=== PATIENT | female | born 1960 | race Caucasian/White ===

== ENCOUNTER 2025-01-05 14:14 | Outpatient (REF) | payer OTHER, SELFPAY ==
--- NOTE | ~2025-01-05 | MM_ITS ---
EXAMINATION: DXA BONE DENSITY AXIAL HISTORY: MENOPAUSAL TECHNIQUE: [facility] Dual energy absorptiometry (DEXA) of the lumbar spine, total right hip, and femoral neck was performed. COMPARISON: There are no prior studies for comparison. FINDINGS: The bone mineral density of the lumbar spine is 1.198 g/cm2, corresponding to a T-score of 0.1, and a Z-score of 1.5. This is indicative of normal bone mineral density. The bone mineral density of the right total hip is 0.936 g/cm2, corresponding to a T-score of -0.6, and a Z-score of 0.4. This is indicative of normal bone mineral density. The bone mineral density of the right femoral neck is 0.939 g/cm2, corresponding to a T-score of -0.7, and a Z-score of 0.6. This is indicative of normal bone mineral density. MM/XR DEXA axial skeleton IMPRESSION: Based on bone mineral density, and according to World Health Organization (WHO) criteria, the diagnosis is consistent with normal bone mineral density. Statistically, 68% of repeat scans fall within 1 SD (+/- 0.010 g/cm2 for AP spine L1-L4) and 1 SD (+/- 0.012 g/cm2 for femur total) FRAX is a trademark of the [employer]'s [place] [facility] Metabolic Bone Disease, a World Health Organization (WHO) Collaborating Center. Electronically signed by: Roly Li MD 01/05/2025 02:57 PM EDT
--- OUTSIDE RECORDS SUMMARY | 2025-01-05 18:35 | XMS_ITS | Encounter Summary ---
Author Organization [facility] Address [address] [facility] [address] [place] [address] Phone Care Team Providers Care Metal Rivet Machine Operator Name Role Phone Klaudia Fan MD Primary Care Provider [phone]- [phone] Encounter Details Date Type Department Care Team (Late st Contact Info) Description 06/15/2020 Procedure Pass [facility], [address] [place] [address] Social History Tobacco Use Types Packs/Day Years Used Date Smoking Tobacco: Never Smokeless Tobacco: Never Alcohol Use Standard Drinks/Week Comments Yes 2 (1 standard drink = 0.6 oz pur e alcohol) Socially Comments No Sex and Gender Information Value Date Recorded Sex Assigned at Female 09/21/2019 11:39 AM EDT Legal Sex Female 4:13 PM EST Gender Identity Female 09/21/2019 11:39 AM EDT Sexual Orientation Lesbian or [place] 09/21/2019 11 :39 AM EDT documented as of this encounter Plan of Treatment Upcoming Encounters Date Type Department Care Team (Late st Contact Info) Description 03/30/2025 8:40 AM EST Office Visit [facility] [address] [facility] [address] [place] [address] Klaudia Fan MD 15 [facility] [address] [place] [address] [email or web address] documented as of this encounter Visit Diagnoses Not on filedocumented in this encounter Additional Health Concerns Infection Onset Date Last Indicated Resolved Time CoV-Exposed Comment:From COVIDPass 08/21/2021 08/21/2021 09/01/2021 1:24 A M EDT COVID-19 11/19/2023 11/19/2023 12/10/2023 1:21 AM EDT documented as of this encounter Care Teams Metal Rivet Machine Operator Relationship Specialty Start Date End Date Klaudia Fan MD 15 [place] [address] [email or web address] PCP - General Family Medicine 09/21/19 documented as of this encounter Additional Source Comments The information contained in this document represents components of the legal health record. It is not the complete legal health record.[facility]
--- OUTSIDE RECORDS SUMMARY | 2025-01-05 18:35 | XMS_ITS | Encounter Summary ---
Author Organization [facility] Address [address] [facility] [address] [place] [address] Phone Care Team Providers Care Record Cutter Name Role Phone Klaudia Fan MD Primary Care Provider [phone]- [phone] Encounter Details Date Type Department Care Team (Latest Contact Info) Description 12/24/2022 Transcribe Orders [facility] Laboratory [address] [place] [address] Klaudia Fan MD 15 [facility] [address] [place] [address] [email or web address] Abnormal laboratory test (Primary Dx) Social History Tobacco Use Types Packs/Day Years Used Date Smoking Tobacco: Former Cigarettes Smokeless Tobacco: Never Alcohol Use Standard Drinks/Week Comments Yes 2 (1 standard drink = 0.6 oz pur e alcohol) Socially Education Answer Date Recorded Are you interested in more education? Not on neymar e 07/06/2022 Are you concerned about learning? Not on file 07/06/2022 No 07/06/2022 No 07/06/2022 Digital Access Answer Date Recorded No 08/01/2022 No 08/01/2022 Reliable internet access at home? Not on file 08/01/2022 Device with a working camera? Not on file Comments No Sex and Gender Information Value [...] Description 03/30/2025 8:40 AM EST Office Visit [facility] Primary Care [address] [facility] [address] [place] [address] Klaudia Fan MD 15 [facility] [address] [place] [address] [email or web address] documented as of this encounter Results * Folate (12/31/2022 2:25 PM EDT) FOLIC ACID 13.7 4.2 - 19.9 ng/mL [facility] Blood 12/31/2022 2:25 PM EDT 12/31/2022 2:28 PM EDT us Klaudia Fan MD LAB BLOOD ORDERABLES Final R esult Performing Organization Address City/[facility]/ZIP Co de Phone Number [address] [address] * Vitamin B12 (12/31/2022 2:25 PM EDT) VITAMIN B12 979 232 - 1,245 pg/mL [facility] Blood 12/31/2022 2:25 PM EDT 12/31/2022 2:28 PM EDT Klaudia Fan MD LAB BLOOD ORDERABLES Final R esult Performing Organization Address [facility]/ZIP Co de Phone Number [address] [address] documented in this encounter Visit Diagnoses Diagnosis Abnormal laboratory test- Primary Other abnormal clinical finding documented in this encounter Additional Health Concerns Infection Onset Date Last Indicated Resolved Time COVID-19 11/19/2023 11/19/2023 12/10/2023 1:21 AM EDT documented as of this encounter Care Teams Record Cutter Relationship Specialty Start Date End Date Klaudia Fan MD [address] [address] [email or web address] PCP - General Family Medicine 09/21/19 documented as of this encounter Additional Source Comments The information contained in this document represents components of the legal health record. It is not the complete legal health record.[facility]
--- OUTSIDE RECORDS SUMMARY | 2025-01-05 18:35 | XMS_ITS | Encounter Summary ---
Author Organization [facility] Address [address] [facility] [address] [place] [address] Phone Care Team Providers Care Tire Room Supervisor Name Role Phone Jackie Swanson MD Primary Care Provider [phone] Klaudia Fan MD Primary Care Provider [phone] Encounter Details Date Type Department Care Team (Late st Contact Info) Description 06/22/2017 Ancillary Orders , X-Ray - [address] [place] [address] Jackie Swanson MD [address] [place] [address] [email or web address] Pain Social History Tobacco Use Types Packs/Day Years Used Date Smoking Tobacco: Never Assessed Comments Unknown Sex and Gender Information Value Date Recorded [...] Description 03/30/2025 8:40 AM EST Office Visit [facility] [address] [facility] [address] [place] [address] Klaudia Fan MD 15 [facility] [address] [place] [address] documented as of this encounter Results * XR Sacrum and Coccyx (06/22/2017 4:05 PM EDT) Anatomical Region Laterality Modality L-spine Radiographic Kylee ging 06/23/2017 10:2 1 AM EDT Impressions 06/23/2017 10:23 AM EDT Very equivocal fracture deformity of the proximal coccyx which may represent a subtle change from 2011. No other post-traumatic bony abnormality suggested. POS [id number] Narrative 06/23/2017 10:23 AM EDT COMPARISON: 06/10/2011 CT FINDINGS: Frontal and lateral views were obtained. There is very equivocal progressive widening between the first and second coccygeal segments. Coccygeal tip is stable. Sacral ala appear intact. Procedure Note Jeanine Mercedes MD - 06/23/2017 COMPARISON: 06/10/2011 CT FINDINGS: Frontal and lateral views were obtained. There is very equivocalprogressive widening between the first and second coccygeal segments.Coccygeal tip is stable. Sacral ala appear intact. IMPRESSION: Very equivocal fracture deformity of the proximal coccyx which mayrepresent a subtle change from 2011. No other post-traumatic bonyabnormality suggested. POS [id number] Jackie Swanson MD IMG XR SPINE Final Result documented in this encounter Visit Diagnoses Diagnosis Pain Generalized pain Pain Generalized pain documented in this encounter Additional Health Concerns Infection Onset Date Last Indicated Resolved Time CoV-Risk 11/19/2019 11/19/2019 11/19/2019 4:18 PM EDT CoV-Risk 04/29/2020 04/29/2020 05/09/2020 1:23 AM EST CoV-Exposed Comment:From COVIDPass 08/21/2021 08/21/2021 09/01/2021 1:24 A M EDT COVID-19 11/19/2023 11/19/2023 12/10/2023 1:21 AM EDT documented as of this encounter Care Teams Tire Room Supervisor Relationship Specialty Start Date End Date Jackie Swanson MD [address] [place] [phone] [email or web address] PCP - General Internal Medicine 05/31/17 09/20/19 Klaudia Fan MD [address] [place] [address] [email or web address] PCP - General Family Medicine 09/21/19 documented as of this encounter Additional Source Comments The information contained in this document represents components of the legal health record. It is not the complete legal health record.[facility]
--- OUTSIDE RECORDS SUMMARY | 2025-01-05 18:35 | XMS_ITS | Encounter Summary ---
Author Organization [facility] Address [address] [facility] [address] [place] [address] Phone Care Team Providers Care School Speech Language Pathologist Name Role Phone Klaudia Fan MD Primary Care Provider [phone] Encounter Details Date Type Department Care Team ([facility] st Contact Info) Description 07/26/2023 Procedure Pass [facility] Admitting Dept Virtual Department 30 [place] [address] Social History Tobacco Use Types Packs/Day Years Used Date Smoking Tobacco: Former Cigarettes Q uit: 1980 Smokeless Tobacco: Never Comments:Quit in 20's Alcohol Use Standard Drinks/Week Comments Yes 2 (1 standard drink = 0.6 oz pur e alcohol) Home Health Assessment: Transportation Answer Date Recorded Lack of Transportation (Medical) No 03/06/2023 Lack of Transportation (Non-Medical) No 03/06/2023 Patient Unable or Declines to Respond No 03/06/2023 Education Answer Date Recorded Are you interested in more education? Not on neymar e 07/06/2022 Are you concerned about learning? Not on file 07/06/2022 No 07/06/2022 No 07/06/2022 Digital Access Answer Date Recorded No 08/01/2022 No 08/01/2022 Reliable internet access at home? Not on file 08/01/2022 Device with a working camera? Not on file Intimate Partner Violence Answer Date R ecorded Are you denied basic needs s uch as food, clothing, or medical care? No 07/26/2023 In the past 12 months have y ou been in a relationship with a person who hurts, threatens, or tries to control you? No 07/26/2023 Are you denied basic needs s uch as food, clothing, or medical care? No 07/26/2023 In the past 12 months have y ou been in a relationship with a person who hurts, threatens, or tries to control you? No 07/26/2023 Comments No Sex and Gender Information Value [...] 03/30/2025 8:40 AM EST Office Visit [facility] [address] [facility] [address] [place] [address] Klaudia Fan MD 15 [facility]. [address] [place] [address] [email or web address] documented as of this encounter Visit Diagnoses Not on filedocumented in this encounter Additional Health Concerns Infection Onset Date Last Indicated Resolved Time COVID-19 11/19/2023 11/19/2023 12/10/2023 1:21 AM EDT documented as of this encounter Care Teams School Speech Language Pathologist Relationship Specialty Start Date End Date Klaudia Fan MD 15 [facility]. [address] [place] [address] [email or web address] PCP - General Family Medicine 09/21/19 documented as of this encounter Additional Source Comments The information contained in this document represents components of the legal health record. It is not the complete legal health record.[facility]
--- OUTSIDE RECORDS SUMMARY | 2025-01-05 18:35 | XMS_ITS | Encounter Summary ---
Author Organization [facility] Address [address] [facility] [address] [place] [address] Phone Care Team Providers Care Brine Supervisor Name Role Phone Klaudia Fan MD Primary Care Provider [phone] Encounter Details Date Type Department Care Team (Late st Contact Info) Description 02/15/2020 Procedure Pass [facility] - [address] [place] [address] Social History Tobacco Use Types Packs/Day Years [...] Description 03/30/2025 8:40 AM EST Office Visit [facility] Care [address] [facility] [address] [place] [address] Klaudia Fan MD 15 [facility] [address] [place] [address] [email or web address] documented as of this encounter Visit Diagnoses Not on filedocumented in this encounter Additional Health Concerns Infection Onset Date Last Indicated Resolved Time CoV-Risk 04/29/2020 04/29/2020 05/09/2020 1:23 AM EST CoV-Exposed Comment:From COVIDPass 08/21/2021 08/21/2021 09/01/2021 1:24 A M EDT COVID-19 11/19/2023 11/19/2023 12/10/2023 1:21 AM EDT documented as of this encounter Care Teams Brine Supervisor Relationship Specialty Start Date End Date Klaudia Fan MD [address] [place] [address] [email or web address] PCP - General Family Medicine 09/21/19 documented as of this encounter Additional Source Comments The information contained in this document represents components of the legal health record. It is not the complete legal health record.[facility]
--- OUTSIDE RECORDS SUMMARY | 2025-01-05 18:35 | XMS_ITS | Encounter Summary ---
Author Organization [facility] Address [address] [facility] [address] [place] [address] Phone Care Team Providers Care Tensile Tester Name Role Phone Jackie Swanson MD Primary Care Provider [phone] Klaudia Fan MD Primary Care Provider [phone] Encounter Details Date Type Department Care Team (Late st Contact Info) Description 05/31/2017 Transcribe Orders [address] [place] [address] Jackie Swanson MD [address] [place] [address] [email or web address] Anemia, unspecified type (Primary Dx); Vitamin D deficiency; Loss of hair Social History Tobacco Use Types Packs/Day Years [...] Description 03/30/2025 8:40 AM EST Office Visit [facility] [address] [facility] [address] [place] [address] Klaudia Fan MD 15 [facility] [address] [place] [address] [email or web address] documented as of this encounter Results * 25-OH vitamin D (05/31/2017 7:52 AM EDT) 25 OH VIT D (TOTAL) 50 30 - 1,000 ng/mL [facility] Blood 05/31/2017 7:52 AM EDT 05/31/2017 7:56 AM EDT Jackie Swanson MD LAB BLOOD ORDERABLES Final R esult Performing Organization Address City/[facility]/ZIP Co de Phone Number [address] [address] * TSH (05/31/2017 7:52 AM EDT) Pathologist [facility] TSH 2.11 0.27 - 4.20 uIU/mL [facility] Blood 05/31/2017 7:52 AM EDT 05/31/2017 7:56 AM EDT us Jackie Swanson MD LAB BLOOD ORDERABLES Final R esult Performing Organization Address City/[facility]/ZIP Co de Phone Number [address] [address] * CBC and differential (05/31/2017 7:52 AM EDT) [facility] WBC 4.17 3.40 - 11.20 K/uL [facility] RBC 3.83 3.80 - 4.80 M/uL [facility] HGB 12.1 12.0 - 15.0 g/dL [facility] HCT 36.3 36.0 - 46.0 % [facility] PLT 158 130 - 400 K/uL [facility] MCV 94.8 79.0 - 98.0 fL [facility] MCH 31.6 27.0 - 34.8 pg [facility] MCHC 33.3 31.5 - 36.0 g/dL [facility] RDW 12.2 10.8 - 14.6 % [facility] MPV 11.7 9.4 - 12.4 [facility] NRBC 0.00 /100 WBCs [facility] ABSOLUTE NRBC 0.00 K/uL [facility] DIFF METHOD Auto [facility] NEUTS 63.0 45.30 - 77.70 % [facility] LYMPHS 26.1 12.30 - 39.70 % [facility] MONOS 9.1 4.10 - 12.80 % [facility] EOS 1.4 0 - 7.2 % [facility] BASOS 0.2 0 - 2.80 % [facility] Granulocytes, immature (%) 0.2 0.0 - 0.9 % [facility] ABSOLUTE NEUTS 2.62 1.40 - 7.70 K/uL [facility] ABSOLUTE LYMPHS 1.09 0.60 - 3.20 K/uL [facility] ABSOLUTE MONOS 0.38 0.11 - 0.59 K/uL [facility] ABSOLUTE EOS 0.06 0.01 - 0.50 K/uL [facility] ABSOLUTE BASOS 0.01 0.00 - 0.08 K/uL [facility] Granulocytes, immature 0.01 0.00 - 0.05 K/uL [facility] Blood 05/31/2017 7:52 AM EDT 05/31/2017 7:56 AM EDT Jackie Swanson MD LAB BLOOD ORDERABLES Final R esult [facility] [address] [place] [address] * (ABNORMAL) Comprehensive metabolic panel (05/31/2017 7:52 AM EDT) SODIUM 137 133 - 146 mmol/L [facility] POTASSIUM 4.2 3.3 - 5.1 mmol/L [facility] CHLORIDE 101 96 - 108 mmol/L [facility] CO2 26 21 - 35 mmol/L [facility] BUN 14 6 - 19 mg/dL [facility] CREATININE 0.90 0.5 - 1.5 mg/dL [facility] GLUCOSE 96 70 - 99 mg/dL [facility] ALBUMIN 4.1 3.9 - 4.8 g/dL [facility] TOTAL PROTEIN 6.9 6.5 - 8.0 g/dL [facility] CALCIUM 8.9 8.4 - 10.3 mg/dL [facility] ALKALINE PHOSPHATASE 37(L) 39 - 117 U/L [facility] TOTAL BILIRUBIN 0.6 0.0 - 1.2 mg/dL [facility] AST 19 0 - 37 U/L [facility] ALT 11 0 - 40 U/L [facility] GLOBULIN 2.8 1 - 4.8 g/dL [facility] EGFR 71 >59 mL/min/1.7 3m2 [facility] Comment:If patient is black, multiply result by 1.159. The eGFR calculation has changed from the MDRD equation to the CKD-EPI equation as of May 14, 2017. ANION GAP 14 10 - 20 mmol/L [facility] Blood 05/31/2017 7:52 AM EDT 05/31/2017 7:56 AM EDT us Jackie Swanson MD LAB BLOOD ORDERABLES Final R esult [address] [address] documented in this encounter Visit Diagnoses Diagnosis Anemia, unspecified type- Primary Vitamin D deficiency Loss of hair Unspecified alopecia documented in this encounter Additional Health Concerns Infection Onset Date Last Indicated Resolved Time CoV-Risk 11/19/2019 11/19/2019 11/19/2019 4:18 PM EDT CoV-Risk 04/29/2020 04/29/2020 05/09/2020 1:23 AM EST CoV-Exposed Comment:From COVIDPass 08/21/2021 08/21/2021 09/01/2021 1:24 A M EDT COVID-19 11/19/2023 11/19/2023 12/10/2023 1:21 AM EDT documented as of this encounter Care Teams Tensile Tester Relationship Specialty Start Date End Date Jackie Swanson MD [address] [place] [address] [email or web address] PCP - General Internal Medicine 05/31/17 09/20/19 Klaudia Fan MD [address] [place] [address] [email or web address] PCP - General Family Medicine 09/21/19 documented as of this encounter Additional Source Comments The information contained in this document represents components of the legal health record. It is not the complete legal health record.[facility]
--- OUTSIDE RECORDS SUMMARY | 2025-01-05 18:35 | XMS_ITS | Encounter Summary ---
Author Organization [facility] Address [address] [facility] [address] [place] [address] Phone Care Team Providers Care Gallery Manager Name Role Phone Klaudia Fan MD Primary Care Provider [phone] Encounter Details Date Type Department Care Team (Late st Contact Info) Description 06/01/2022 Ancillary Orders [facility] [address] [facility] [address] [place] [address] Klaudia Fan MD 15 [facility]. [address] [place] [address] [email or web address] Chronic pain of both hips Social History Tobacco Use Types Packs/Day Years [...] Description 03/30/2025 8:40 AM EST Office Visit [facility] [address] [facility] [address] [place] [address] Klaudia Fan MD [address] [address] [email or web address] documented as of this encounter Results * XR HIPS 2+ VW EA BILAT PLUS PELVIS (06/11/2022 8:21 AM EDT) Anatomical Region Laterality Modality Hip, Pelvis Computed Radiogr aphy 06/11/2022 10:3 7 AM EDT Impressions 06/11/2022 10:49 AM EDT 1. Moderate-severe degenerative changes at the left hip, very mildly progressed from 01/31/2018. 2. Mild-moderate degenerative changes at the right hip, likely mildly progressed from 2018. Narrative 06/11/2022 10:49 AM EDT XR HIPS 2+ VW EA BILAT PLUS PELVIS HISTORY: Chronic bilateral hip pain greater on left than right. COMPARISON: Pelvis and left hip x-ray 01/31/2018. FINDINGS: Pelvis: No displaced fracture. Mild sclerosis at the left SI joint is stable. Left Hip: At least moderate joint space narrowing with evidence of subchondral sclerosis, small subchondral cystic changes and moderate marginal spurring. Overall, changes are very similar to 01/31/2018 with probable mild progression. No flattening of the femoral head. No fracture, subluxation or dislocation. Right Hip: Mild joint space narrowing and mild-moderate marginal spurring, mildly progressed from 01/31/2018. No flattening of the femoral head. No fracture. No subluxation or dislocation. Procedure Note Cedric Mojica MD - 06/11/2022 XR HIPS 2+ VW EA BILAT PLUS PELVIS HISTORY: Chronic bilateral hip pain greater on left than right. COMPARISON: Pelvis and left hip x-ray 01/31/2018. FINDINGS: Pelvis: No displaced fracture. Mild sclerosis at the left SI joint isstable. Left Hip: At least moderate joint space narrowing with evidence ofsubchondral sclerosis, small subchondral cystic changes and moderatemarginal spurring. Overall, changes are very similar to 01/31/2018 withprobable mild progression. No flattening of the femoral head. No fracture,subluxation or dislocation. Right Hip: Mild joint space narrowing and mild-moderate marginal spurring,mildly progressed from 01/31/2018. No flattening of the femoral head. Nofracture. No subluxation or dislocation. IMPRESSION: 1. Moderate-severe degenerative changes at the left hip, very mildlyprogressed from 01/31/2018. 2. Mild-moderate degenerative changes at the right hip, likely mildlyprogressed from 2018. Klaudia Fan MD IMG XR PELVIS Final Result documented in this encounter Visit Diagnoses Diagnosis Chronic pain of both hips documented in this encounter Additional Health Concerns Infection Onset Date Last Indicated Resolved Time COVID-19 11/19/2023 11/19/2023 12/10/2023 1:21 AM EDT documented as of this encounter Care Teams Gallery Manager Relationship Specialty Start Date End Date Klaudia Fan MD [address] [place] [address] [email or web address] PCP - General Family Medicine 09/21/19 documented as of this encounter Additional Source Comments The information contained in this document represents components of the legal health record. It is not the complete legal health record.[facility]
--- OUTSIDE RECORDS SUMMARY | 2025-01-05 18:36 | XMS_ITS | Encounter Summary ---
Author Organization [facility] Address [address] [facility] [address] [place] [address] Phone Care Team Providers Care Principal Consultant Name Role Phone Klaudia Fan MD Primary Care Provider [phone] Encounter Details Date Type Department Care Team ([facility] st Contact Info) Description 08/01/2022 Ancillary Orders [address] [address] Mandy Navas MD [address] [place] [address] Orthopedics & Sports Medicine, [place] [address] [email or web address] Left hip pain Social History Tobacco Use Types Packs/Day Years [...] Description 03/30/2025 8:40 AM EST Office Visit [facility] [place] [facility] [address] [facility] [address] [place] [address] Klaudia Fan MD [address] [facility] [address] [place] [address] [email or web address] [email or web address] Results Name Type Priority Associated Diagnoses Date /Time FL Guidance Needle Placement Non-Spine Imaging Routine Left hip pain 08/07/2022 10:17 AM EDT Scheduled Orders Name Type Priority Associated Diagnoses Orde r Schedule FL Guidance Needle Placement Non-Spine Imaging Routine Left hip pain 1 Occurrences starting 08/01/2022 until 11/01/2022 documented as of this encounter Visit Diagnoses Diagnosis Left hip pain Pain in joint, pelvic region and thigh documented in this encounter Additional Health Concerns Infection Onset Date Last Indicated Resolved Time COVID-19 11/19/2023 11/19/2023 12/10/2023 1:21 AM EDT documented as of this encounter Care Teams Principal Consultant Relationship Specialty Start Date End Date Klaudia Fan MD [address] [facility] [address] [place] [address] PCP - General Family Medicine 09/21/19 documented as of this encounter Additional Source Comments The information contained in this document represents components of the legal health record. It is not the complete legal health record.[facility]
--- OUTSIDE RECORDS SUMMARY | 2025-01-05 18:36 | XMS_ITS | Encounter Summary ---
Author Organization [facility] Address [address] [place] [address] [place] [address] Phone Care Team Providers Care Pellet Press Operator Name Role Phone Klaudia Fan MD Primary Care Provider [phone] Reason for Visit * Reason Comments Med Change Request Encounter Details Date Type Department Care Team ([facility] Contact Info) Description 03/07/2023 Refill [facility] Medicine [address] [place] [address] Silck Mae PA-C [address] [place] [address] Orthopedics & Sports Medicine, [place], [place] [id number] [email or web address] Med Change Request Social History Tobacco Use Types Packs/Day Years [...] Description 03/30/2025 8:40 AM EST Office Visit [facility] [place] [facility] [address] [facility] [address] [place] [address] Klaudia Fan MD 15 [facility] [address] [place] [address] documented as of this encounter Visit Diagnoses Not on filedocumented in this encounter Additional Health Concerns Infection Onset Date Last Indicated Resolved Time COVID-19 11/19/2023 11/19/2023 12/10/2023 1:21 AM EDT documented as of this encounter Care Teams Pellet Press Operator Relationship Specialty Start Date End Date Klaudia Fan MD [address] [facility] [address] [place] [address] PCP - General Family Medicine 09/21/19 documented as of this encounter Additional Source Comments The information contained in this document represents components of the legal health record. It is not the complete legal health record.[facility]
--- OUTSIDE RECORDS SUMMARY | 2025-01-05 18:36 | XMS_ITS | Encounter Summary ---
Author Organization [facility] Address [address] [facility] [address] [place] [address] Phone Care Team Providers Care Records Management Assistant Name Role Phone Klaudia Fan MD Primary Care Provider [phone] Encounter Details Date Type Department Care Team (Late st Contact Info) Description 01/05/2025 Orders Only Char[facility] God[facility] [place] [facility] [address] [facility] [address] [place] [address] Klaudia Fan MD 15 [facility] [address] [place] [address] [email or web address] Routine medical exam Social History Tobacco Use Types Packs/Day Years [...] Unable or Declines to Respond No 03/06/2023 Child or Family Care Answer Date Record ed Do you have problems with on e of the following making it difficult for you to work, study, or receive health care? No 03/09/2024 Education Answer Date Recorded Are you interested in help w ith more adult education (for example, completing high school, GED, job training, learning the [place] language, technical skills, or developing parenting skills)? No 03/09/2024 Are you concerned about learning? Not on file 03/09/2024 No 03/09/2024 Yes 03/09/2024 Food Answer Date Recorded Within the past 6 months we worried whether our food would run out before we got money to buy more. Never True 03/09/2024 Within the past 6 months the food we bought just didn't last and we didn't have enough money to get more. Never True Residential Stability Answer Date Recor ded What is your housing situation today? I have mitul recinos 03/09/2024 How many times have you move d in the past 12 months? Zero (I did not move) 03/09/2024 Paying for Meds Answer Date Recorded Do you have trouble paying for medicines? No 03/09/2024 Paying Utility Bills Answer Date Record ed Do you have trouble paying your heating or elect ricity bill? No 03/09/2024 Transportation Answer Date Recorded Has the lack of transportati on kept you from medical appointments or from getting medications? No 03/09/2024 Digital Access Answer Date Recorded No 03/09/2024 Yes 03/09/2024 Do you have reliable internet access at home? Ye s 03/09/2024 Do you have a device (e.g., phone, tablet, computer) with a working camera? Yes 03/09/2024 Intimate Partner Violence Answer Date R ecorded Are you denied basic needs s uch as food, clothing, or medical care? No 03/09/2024 In the past 12 months have y ou been in a relationship with a person who hurts, threatens, or tries to control you? No 03/09/2024 Are you denied basic needs s uch as food, clothing, or medical care? No 03/09/2024 In the past 12 months have y ou been in a relationship with a person who hurts, threatens, or tries to control you? No 03/09/2024 Comments No Sex and Gender Information Value [...] Description 03/30/2025 8:40 AM EST Office Visit [facility] [place] [facility] [address] [facility] [address] [place] [address] Klaudia Fan MD [address] [facility] [address] [place] [address] [email or web address] documented as of this encounter Procedures Procedure Name Priority Date/Time Associated Diagnosis Comments BD DXA SCREENING Routine 01/05/2025 4:04 PM EDT Routine medical exam documented in this encounter Results * DXA Screening (01/05/2025 4:04 PM EDT) Anatomical Region Laterality Modality Bone Density Bone Density us Klaudia Fan MD IMG BD BONE DENSITY DEXA Fin al Result documented in this encounter Visit Diagnoses Diagnosis Routine medical exam Routine general medical examination at a health care facility documented in this encounter Additional Health Concerns Assessment Noted Time PHQ-2 Depression Total Score: 1 03/09/20 24 7:16 AM EST documented as of this encounter Care Teams Records Management Assistant Relationship Specialty Start Date End Date Klaudia Fan MD [address] [facility] [place] [address] PCP - General Family Medicine 09/21/19 documented as of this encounter Additional Source Comments The information contained in this document represents components of the legal health record. It is not the complete legal health record.[facility]
--- OUTSIDE RECORDS SUMMARY | 2025-01-05 18:36 | XMS_ITS | Encounter Summary ---
Author Organization [facility] Address [address] [facility] [address] [place] [address] Phone Care Team Providers Care Tire Duster Name Role Phone Jackie Swanson MD Primary Care Provider + [phone] Klaudia Fan MD Primary Care Provider + [phone] Encounter Details Date Type Department Care Team (Late Contact Info) Description 12/12/2018 Ancillary Orders Virtual Department 30 [place] [address] Isabel Lozada MD [address] [facility], [address] [place] [address] [email or web address] Breast screening Social History Tobacco Use Types Packs/Day Years [...] Description 03/30/2025 8:40 AM EST Office Visit [facility] [place] [facility] [address] [facility] [address] [place] [address] Klaudia Fan MD [address] [place] [address] [email or web address] documented as of this encounter Results * BI MAMMOGRAM SCREENING WITH TOMOSYNTHESIS WITH CAD (BILATERAL) (01/27/2019 7:17 AM EST) Anatomical Region Laterality Modality Breast Left, Breast Right, Breast Bilateral Bila teral Mammography 01/27/2019 8:38 AM EST Addenda Addendum by Jeanine Mercedes MD on 01/28/2019 10:59 AM EST Standard digital full-field 2-D C view and two-plane tomographic imaging was performed and compared with multiple prior studies, most recently 01/24/2018, with utilization of computer-aided detection. The breasts are composed of scattered fibroglandular densities. The stromal markings are essentially unchanged in overall appearance and distribution. No dominant spiculated mass, suspicious clustered microcalcifications, or focal zone of pathologic skin thickening or retraction are noted to have arisen in the interim. IMPRESSION: No mammographic evidence of malignancy. >> BI-RADS CATEGORY: 1 - Negative. DENSITY: There are scattered fibroglandular densities. << Edited by: Thelma Kaminski on 01/28/2019 9:06 AM Impressions 01/27/2019 8:40 AM EST No mammographic evidence of malignancy. DENSITY: POS - CDHMAMA Narrative 01/27/2019 8:40 AM EST Standard digital full-field 2-D C view and two-plane tomographic imaging was performed and compared with multiple prior studies, most recently 01/24/2018, with utilization of computer-aided detection. The breasts are composed of scattered fibroglandular densities. The stromal markings are essentially unchanged in overall appearance and distribution. No dominant spiculated mass, suspicious clustered microcalcifications, or focal zone of pathologic skin thickening or retraction are noted to have arisen in the interim. Procedure Note Jeanine Mercedes MD - 01/27/2019 Standard digital full-field 2-D C view and two-plane tomographic imagingwas performed and compared with multiple prior studies, most [id number]/16/2018, with utilization of computer-aided detection. The breasts are composed of scattered fibroglandular densities. Thestromal markings are essentially unchanged in overall appearance anddistribution. No dominant spiculated mass, suspicious clusteredmicrocalcifications, or focal zone of pathologic skin thickening orretraction are noted to have arisen in the interim. IMPRESSION: No mammographic evidence of malignancy. DENSITY: POS - CDHMAMA us Isabel Lozada MD IMG MG EXAMS Edited Result - Final documented in this encounter Visit Diagnoses Diagnosis Breast screening Breast screening, unspecified Breast screening Breast screening, unspecified documented in this encounter Additional Health Concerns Infection Onset Date Last Indicated Resolved Time CoV-Risk 11/19/2019 11/19/2019 11/19/2019 4:18 PM EDT CoV-Risk 04/29/2020 04/29/2020 05/09/2020 1:23 AM EST CoV-Exposed Comment:From COVIDPass 08/21/2021 08/21/2021 09/01/2021 1:24 A M EDT COVID-19 11/19/2023 11/19/2023 12/10/2023 1:21 AM EDT documented as of this encounter Care Teams Tire Duster Relationship Specialty Start Date End Date Jackie Swanson MD [address] [place] [address] PCP - General Internal Medicine 05/31/17 09/20/19 Klaudia Fan MD [address] [place] [address] PCP - General Family Medicine 09/21/19 documented as of this encounter Additional Source Comments The information contained in this document represents components of the legal health record. It is not the complete legal health record.[facility]
--- OUTSIDE RECORDS SUMMARY | 2025-01-05 18:36 | XMS_ITS | Encounter Summary ---
Author Organization [facility] Address [address] [place] [address] Phone Care Team Providers Care Coal Chemist Name Role Phone Klaudia Fan MD Primary Care Provider [phone] Encounter Details Date Type Department Care Team (Late st Contact Info) Description 03/09/2024 Procedure Pass [facility] - [address] [place] [address] Social History Tobacco Use Types Packs/Day Years Used Date Smoking Tobacco: Former Cigarettes Q uit: 1979 Smokeless Tobacco: Never Comments:Quit in 20's Alcohol [...] high school, GED, job training, learning the [place] language, technical skills, or developing parenting skills)? [...] Upcoming Encounters Date Type Department Care Team (Dior st Contact Info) Description 03/30/2025 8:40 AM EST Office Visit [facility] [address] [facility] [address] [place] [address] Klaudia Fan MD [address] [address] [email or web address] documented as of this encounter Visit Diagnoses Not on filedocumented in this encounter Additional Health Concerns Assessment Noted Time PHQ-2 Depression Total Score: 1 03/09/20 24 7:16 AM EST documented as of this encounter Care Teams Coal Chemist Relationship Specialty Start Date End Date Klaudia Fan MD [address] [address] PCP - General Family Medicine 09/21/19 documented as of this encounter Additional Source Comments The information contained in this document represents components of the legal health record. It is not the complete legal health record.[facility]
--- OUTSIDE RECORDS SUMMARY | 2025-01-05 18:36 | XMS_ITS | Encounter Summary ---
Author Organization [facility] Address [address] [facility] [address] [place] [address] Phone Care Team Providers Care Forklift Truck Operator Name Role Phone Jackie Swanson MD Primary Care Provider + [phone] Klaudia Fan MD Primary Care Provider + [phone] Encounter Details Date Type Department Care Team (Late st Contact Info) Description 03/28/2018 Procedure Pass [facility] Admitting Dept Virtual Department 30 [place] [address] Social History Tobacco Use Types Packs/Day Years [...] Encounters Date Type Department Care Team (Late Contact Info) Description 03/30/2025 8:40 AM EST Office Visit Charla Godwin [facility] [address] [facility] [address] [place] [address] Klaudia Fan MD [address] [facility] [address] [place] [address] [email or web address] documented as of this encounter Visit Diagnoses Not on filedocumented in this encounter Additional Health Concerns Infection Onset Date Last Indicated Resolved Time CoV-Risk 11/19/2019 11/19/2019 11/19/2019 4:18 PM EDT CoV-Risk 04/29/2020 04/29/2020 05/09/2020 1:23 AM EST CoV-Exposed Comment:From COVIDPass 08/21/2021 08/21/2021 09/01/2021 1:24 A M EDT COVID-19 11/19/2023 11/19/2023 12/10/2023 1:21 AM EDT documented as of this encounter Care Teams Forklift Truck Operator Relationship Specialty Start Date End Date Jackie Swanson MD [address] [place] [address] PCP - General Internal Medicine 05/31/17 09/20/19 Klaudia Fan MD [address] [place] [address] PCP - General Family Medicine 09/21/19 documented as of this encounter Additional Source Comments The information contained in this document represents components of the legal health record. It is not the complete legal health record.[facility]
--- OUTSIDE RECORDS SUMMARY | 2025-01-05 18:36 | XMS_ITS | Encounter Summary ---
Author Organization [facility] Address [address] [facility] [address] [place] [address] Phone Care Team Providers Care Gang Knife Fish Chopper Name Role Phone Jackie Swanson MD Primary Care Provider + [phone] Klaudia Fan MD Primary Care Provider + [phone] Encounter Details Date Type Department Care Team (Late Contact Info) Description 10/23/2018 Ancillary Orders Virtual Department 30 [place] [address] Jackie Swanson MD 25 [place] [address] [email or web address] Chronic low back pain without sciatica, unspecified back pain laterality; Sacral pain; Pain of toe of left foot Social History Tobacco Use Types Packs/Day Years [...] Description 03/30/2025 8:40 AM EST Office Visit [facility] [place] [facility] [address] [facility] [address] [place] [address] Klaudia Fan MD [address] [address] [email or web address] documented as of this encounter Results * XR LUMBOSACRAL SPINE 4 OR MORE VIEWS (10/24/2018 12:55 PM EDT) Anatomical Region Laterality Modality L-spine Radiographic Kylee ging 10/24/2018 2:27 PM EDT Impressions 10/24/2018 2:29 PM EDT Loss of disc space height with spondylolisthesis at L4-5 as detailed above. Lower lumbar facet joint sclerosis also noted. S/S: Chronic low back pain without sciatica, unspecified back pain laterality lumbar spondylosis, degenerative disc disease, spondylolisthesis, chronic low back pain without sciatica POS - [id number] Narrative 10/24/2018 2:29 PM EDT COMPARISON: MRI lumbar spine 03/25/2012 FINDINGS: AP, lateral, both oblique, and coned-down views of the lumbar spine are obtained. The pedicles appear intact. SI joints are unremarkable. There is loss of disc space height evident at the L4-5 level. Minor grade 1 anterior spondylolisthesis of L4 and L5 is evident. No pars defects are seen. Slight inferior endplate irregularity is evident at the L2 vertebral body centrum. No compression fracture is noted. There is lower lumbar facet joint sclerosis at L4-5 and L5-S1. Procedure Note Dylan Dupont MD - 10/24/2018 COMPARISON: MRI lumbar spine 03/25/2012 FINDINGS: AP, lateral, both oblique, and coned-down views of the lumbar spine areobtained. The pedicles appear intact. SI joints are unremarkable. There is loss of disc space height evident at the L4-5 level. Minor grade1 anterior spondylolisthesis of L4 and L5 is evident. No pars defects areseen. Slight inferior endplate irregularity is evident at the L2 vertebral bodycentrum. No compression fracture is noted. There is lower lumbar facet joint sclerosis at L4-5 and L5-S1. IMPRESSION: Loss of disc space height with spondylolisthesis at L4-5 as detailedabove. Lower lumbar facet joint sclerosis also noted. S/S: Chronic low back pain without sciatica, unspecified back painlaterality lumbar spondylosis, degenerative disc disease,spondylolisthesis, chronic low back pain without sciatica POS - [id number] Jackie Swanson MD IMG XR SPINE Final Result * XR Sacrum and Coccyx (10/24/2018 12:53 PM EDT) Anatomical Region Laterality Modality L-spine Radiographic Kylee ging 10/24/2018 2:29 PM EDT Impressions 10/24/2018 2:31 PM EDT Unremarkable evaluation of the sacrum and coccyx. No significant change relative to prior imaging. No explanation for sacral and coccygeal pain is seen. S/S: Sacral pain chronic low back pain, sacral coccygeal pain POS - [id number] Narrative 10/24/2018 2:31 PM EDT COMPARISON: Sacrum and coccyx x-rays 06/22/2017 FINDINGS: 3 views of the sacrum and coccyx are obtained. The SI joints are unremarkable. The visualized sacral foramina as best as can be determined are unremarkable. The exam is somewhat limited by overlying bowel gas and stool. The sacrum and coccyx are normal on lateral view.. Procedure Note Dylan Dupont MD - 10/24/2018 COMPARISON: Sacrum and coccyx x-rays 06/22/2017 FINDINGS: 3 views of the sacrum and coccyx are obtained. The SI joints are unremarkable. The visualized sacral foramina as best as can be determined areunremarkable. The exam is somewhat limited by overlying bowel gas andstool. The sacrum and coccyx are normal on lateral view.. IMPRESSION: Unremarkable evaluation of the sacrum and coccyx. No significant changerelative to prior imaging. No explanation for sacral and coccygeal pain isseen. S/S: Sacral pain chronic low back pain, sacral coccygeal pain POS - [id number] Jackie Swanson MD IMG XR SPINE Final Result * XR TOE 4TH DIGIT (LEFT) (10/24/2018 12:51 PM EDT) Anatomical Region Laterality Modality Foot Left Radiographic Kylee ging 10/24/2018 2:31 PM EDT Impressions 10/24/2018 2:33 PM EDT Small focal avulsion fracture related of the middle phalanx of the left fourth toe as described above. Minimal deformity is seen. S/S: Pain of toe of left foot avulsion fracture middle phalanx left fourth toe POS - [id number] Narrative 10/24/2018 2:33 PM EDT COMPARISON: None FINDINGS: 3 views of the left fourth toe are obtained. Possible small focal avulsion injury related to the medial distal extent of the middle phalanx. No subluxation or other possible acute injury is noted. Procedure Note Dylan Dupont MD - 10/24/2018 COMPARISON: None FINDINGS: 3 views of the left fourth toe are obtained. Possible small focal avulsion injury related to the medial distal extentof the middle phalanx. No subluxation or other possible acute injury is noted. IMPRESSION: Small focal avulsion fracture related of the middle phalanx of the leftfourth toe as described above. Minimal deformity is seen. S/S: Pain of toe of left foot avulsion fracture middle phalanx left fourthtoe POS - [id number] Jackie BARROSO XR LOWER EXTREMITY Final Result documented in this encounter Visit Diagnoses Diagnosis Chronic low back pain without sciatica, unspecified back pain laterality Sacral pain Pain of toe of left foot Pain of toe of left foot Sacral pain Chronic low back pain without sciatica, unspecified back pain laterality documented in this encounter Additional Health Concerns Infection Onset Date Last Indicated Resolved Time CoV-Risk 11/19/2019 11/19/2019 11/19/2019 4:18 PM EDT CoV-Risk 04/29/2020 04/29/2020 05/09/2020 1:23 AM EST CoV-Exposed Comment:From COVIDPass 08/21/2021 08/21/2021 09/01/2021 1:24 A M EDT COVID-19 11/19/2023 11/19/2023 12/10/2023 1:21 AM EDT documented as of this encounter Care Teams Gang Knife Fish Chopper Relationship Specialty Start Date End Date Jackie Swanson MD [address] [place] [address] PCP - General Internal Medicine 05/31/17 09/20/19 Klaudia Fan MD [address] [place] [address] PCP - General Family Medicine 09/21/19 documented as of this encounter Additional Source Comments The information contained in this document represents components of the legal health record. It is not the complete legal health record.[facility]
--- OUTSIDE RECORDS SUMMARY | 2025-01-05 18:36 | XMS_ITS | Encounter Summary ---
Author Organization [facility] Address [address] [place] [address] Phone Care Team Providers Care Manager Management Name Role Phone Klaudia Fan MD Primary Care Provider [phone]- [phone] Encounter Details Date Type Department Care Team (Late st Contact Info) Description 04/27/2021 Procedure Pass [facility] - [address] [place] [address] Social History Tobacco Use Types Packs/Day Years [...] Description 03/30/2025 8:40 AM EST Office Visit [facility] [address] [facility] [address] [place] [address] Klaudia Fan MD [address] [facility] [address] [place] [address] [email or web address] documented as of this encounter Visit Diagnoses Not on filedocumented in this encounter Additional Health Concerns Infection Onset Date Last Indicated Resolved Time CoV-Exposed Comment:From [facility]Pass 08/21/2021 08/21/2021 09/01/2021 1:24 A M EDT COVID-19 11/19/2023 11/19/2023 12/10/2023 1:21 AM EDT documented as of this encounter Care Teams Manager Management Relationship Specialty Start Date End Date Klaudia Fan MD [address] [place] [address] [email or web address] PCP - General Family Medicine 09/21/19 documented as of this encounter Additional Source Comments The information contained in this document represents components of the legal health record. It is not the complete legal health record.[facility]
--- OUTSIDE RECORDS SUMMARY | 2025-01-05 18:36 | XMS_ITS | Encounter Summary ---
Author Organization [facility] Address [address] [address] Phone Care Team Providers Care Painter And Body Work Name Role Phone Klaudia Fan MD Primary Care Provider [phone]- [phone] Reason for Visit * Reason Onset Date Comments Sleep Study 10/10/2022 Encounter Details Date Type Department Care Team (Late st Contact Info) Description 10/10/2022 Telephone [facility] Pulmonary, Allergy and Critical Care Medicine [address] [facility] [place] [address] Bree Calle [place] [email or web address] Social History Tobacco Use Types Packs/Day Years [...] Description 03/30/2025 8:40 AM EST Office Visit [facility] [address] [facility] [address] [place] [address] Klaudia Fan MD [address] [address] [email or web address] documented as of this encounter Visit Diagnoses Not on filedocumented in this encounter Additional Health Concerns Infection Onset Date Last Indicated Resolved Time COVID-19 11/19/2023 11/19/2023 12/10/2023 1:21 AM EDT documented as of this encounter Care Teams Painter And Body Work Relationship Specialty Start Date End Date Klaudia Fan MD [address] [facility] [address] [place] [address] PCP - General Family Medicine 09/21/19 documented as of this encounter Additional Source Comments The information contained in this document represents components of the legal health record. It is not the complete legal health record.[facility]
--- OUTSIDE RECORDS SUMMARY | 2025-01-05 18:36 | XMS_ITS | Clinical Summary ---
Author Organization [facility] Address [address] [facility] [address] [place] [phone] Phone Care Team Providers Care Aadc Plans Staff Officer Name Role Phone Klaudia Fan MD Primary Care Provider Allergies Active Allergy Reactions Criticality Noted Date Comments Hydrocodone Swelling 03/19/2023 Throat & mouth swelling [facility] Upset Medium 03/20/2018 Vomiting.allergy to pat and limes, all citrus Medications cholecalciferol (VITAMIN D3) 25 MCG (1,000 unit) tablet Take 1,000 Units by mouth daily. Active cyanocobalamin, vitamin B-12, 100 MCG tablet Take 100 mcg by mouth daily. Active Active Problems Problem Noted Date Diagnosed Date Raynaud phenomenon without gangrene 03/10/2024 Assessment & Plan (03/10/2024 1:36 PM EST): Disorder of right rotator cuff 09/16/2023 Assessment & Plan (03/10/2024 1:36 PM EST): Assessment & Plan (09/16/2023 2:08 PM EDT): H&P c/w pain in at least two muscles of the rotator cuff; unable to assess fully, and in too much pain to ascertain true weakness/likelihood of full thickness tear. Recommend conservative tx with PT and if does not recover fully should return for reassessment, would probably plan for MRI. History of total hip replacement, left 01/09/202 4 Assessment & Plan (03/10/2024 1:36 PM EST): Routine medical exam 11/04/2019 Assessment & Plan (03/13/2024 3:16 PM EST): 63 y.o. female here for complete physical exam. Explained that intermittent toe and finger discoloration is c/w Raynaud's phenomenon. Recommend socks/gloves/mittens as first line tx. Can turn to medications if insufficient. Bump on other toe likely OA. Gilmer declines XR t o evaluate. She does not feel the need for any intervention from me on her other orthopedic concerns but we did discuss the value of increased physical activity in decreasing pain and improving overall mobility. She was not aware of the nevi on her ear and as this is a high risk area for skin cancer I recommend dermatology evaluation Other medical comorbidities stable and/or managed by specialists as noted in the HPI. USPSTF A&B recommendations reviewed with pt. BP: WNL BMI: WNL Pap smears for people age 21-65 with a cervix: complete STI testing for teens and adults at risk, and at least one lifetime HIV and hep C test: Declines PrEP for persons at high risk of HIV: N/A plans in the next year: N/A patient/partner is postmenopausal Depression and anxiety screens: Positive and considering reaching out to EAP IPV screen in women of reproductive age (or others PRN): Negative Smoking cessation counseling: N/A Alcohol use counseling: N/A LTBI screening in people at increased risk: N/A BrCa screening in women/AFAB people at risk: 7-Question Family History Screening Tool negative Vaccinations: PCV20 today, will get COVID @ pharmacy Last dental visit: up to date Lipid screening to consider statin for primary prevention for adults 40-75, or at younger ages with risk factors: Ordered Glucose/diabetes screening for people 35 - 70 with BMI >25: N/A HEMOGLOBIN A1C Date Value Ref Range Status 11/06/2022 5.1 4.3 - 5.8 % Final Breast cancer risk reducing medication in people with breasts 35 and older at risk: N/A Breast cancer screening with biennial mammography for people with breasts 40 and older: will self schedule Colonoscopy for adults 45-75, and can consider at older ages: Not due until at least 2030 DEXA screen for women 65 or older, or others at risk (e.g. Parental h/o hip fx, low BMI, smoking, OST score <2 = 0.2 x[@LASTWEIGHT@ - 64 y.o.] ): Ordered for next year as we are booking out very far Orders: DXA Screening; Future Lipid panel; Future Assessment & Plan (11/04/2019 10:31 AM EDT): 59 y.o. female here for complete physical exam. Palpitations likely benign, let me know if they increase. Discussed tx options for atrophy, pt will try vaginal moisturizer. Discussed how to taper off HRT when she is ready. Agree w/plan for PT to address chronic pain. USPSTF A&B recommendations reviewed with pt. BP: WNL BMI: WNL Pap smears for people age 21-65 with a cervix: Not due until 11/2022 STI testing for teens and adults at risk: Declines, low risk PrEP for persons at high risk of HIV: N/A plans in the next year: N/A no risk for Depression screen: Negative IPV screen in women of reproductive age: Negative Smoking cessation counseling: N/A Alcohol use counseling: N/A LTBI screening in people at increased risk: T-spot negative BrCa screening in women/AFAB people at risk: negative risk screen Vaccinations: tdap today, otherwise up to date Last dental visit: up to date Lipid screening to consider statin for primary prevention for adults 40-75, or at younger ages with risk factors: Ordered Breast cancer risk reducing medication in women 35 and older at risk: N/A Breast cancer screening with biennial mammography for women 50 and older, and can consider for 40-49: up to date, IOS DEVELOPER Orders these Glucose/diabetes screening for people 40 - 70 with BMI >25: N/A Aspirin for primary prevention for adults 50-59 with risk >10%, and can consider for 60-69: Depends on lipids Colonoscopy for adults 50-75, and can consider at older ages: Not due until 03/2023 Hepatitis C screening for adults born between [id number]: Ordered History of GI bleed 09/21/2019 Assessment & Plan (01/02/2023 3:01 PM EDT): Lower GIB/hemorrhoids in 2018 while on NSAID's. Evaluated with colonoscopy in 2019 which showed diverticulosis. Due for repeat colonoscopy this year. Resolved Problems Problem Noted Date Diagnosed Date Resolved Date Preop examination 01/02/2023 01/22/2023 Assessment & Plan (01/03/2023 11:26 AM EDT): 62 [address] patient of Dr[address] Fan with planned left total hip replacement on 02/06/23. Procedure risk is intermediate. Patient denies symptoms associated with acute coronary syndromes including unstable or severe angina, NE within 1 month, severe CHF, high grade arrhythmia or symptomatic valvular disease. Medical risk assessment at the surgical optimization clinic are as follows. DIAZ cardiovascular risk score is 0.2 % risk of myocardial infarction or cardiac arrest, intraoperatively or up to 30 day post-operatively. If <1%, no further cardiac work-up recommended. DASI score was 18.95 points, able to achieve at least 5.07 METS. If DASI >18, no further cardiac testing recommended. NSQIP cardiovascular risk score was below average at 0.1 % risk of cardiac complication, and below average at 0.3 % risk of VTE. RCRI score was 0.4 % risk for cardiovascular event including myocardial infarction, pulmonary edema, arrhythmia, cardiac arrest or complete heart block. This reflects very low risk on the scale. Patient's risk for major adverse cardiac events is low. This meets ACC/AHA guidelines for proceeding to non-cardiac surgery without additional testing. Blood work from 11/06/22 shows a hemoglobin A1c of 5.1%. CBC shows H/h 11.7/37.1 and BMP shows a creatinine of 1.00 with eGFR 63. EKG shows normal sinus rhythm. There is no evidence of acute or prior ischemia. The patient can proceed to the intended procedure without further work-up. She should have standard DVT and antibiotic prophylaxis. The patient was instructed to discontinue use of any NSAIDs, fish oil, turmeric, herbal supplements and multivitamins for 1 week before surgery. The patient does not have any medical conditions which would preclude a same day discharge after joint replacement surgery. Anemia 01/02/2023 03/10/2024 Assessment & Plan (01/03/2023 11:18 AM EDT): Borderline anemia with H/H 11.7/37.1. Upon review of EMR hemoglobin baseline since 2018 has been between 11-12. She previously was a vegetarian, but has started eating meat and was previously taking iron supplementation (stopped due to poor tolerance). Folate and Vitamin B12 levels were both normal on labwork 12/31/22. Colonoscopy done in 2019 with only finding being diverticulosis. Patient is completely asymptomatic, reports lifelong low blood pressures (90-100 systolic). Recommended iron rich foods/resume iron supplementation if tolerated. Discussed possible increased risk of blood transfusion perioperatively due to expected amount of blood loss at the time of surgery. DONNA (obstructive sleep apnea) 01/02/2023 03/10/2024 Assessment & Plan (03/10/2024 1:36 PM EST): Assessment & Plan (01/03/2023 11:28 AM EDT): Followed by /sleep medicine. Reports daytime fatigue and some witnessed apnea. Determined to have DONNA based on recent sleep study in Nov 2022, recommended to start CPAP therapy, however patient states she has not yet been able to obtain a device/start CPAP and does have questions regarding her plan of care. Reached out to for assistance. Primary osteoarthritis of left hip 11/06/2022 01/02/2023 Vaginitis and vulvovaginitis 11/06/2021 01/02/2023 Overview (11/06/2021): Onset in particular after February 2021, went amoxicillin was given Yeast confirmed in July 2020 and in June 2021. Yeast not seen on swab from urgent culture in September 2021, though was consistent with BV without her having symptoms of BV Has been treated with Diflucan and MetroGel Assessment & Plan (10/10/2022 12:32 PM EDT): No infection present on exam today. Vaginal pH suggestive of some estrogen effect and physiologic discharge present. Will trial course of triamcinolone to decrease overall inflammation. In conjunction, recommend daily use of moisture barrier (V Magic, coconut oil) to be applied after shower/bathing. Nargisz baths PRN. Short interval follow up to assess improvement. Assessment & Plan (11/06/2021 9:48 AM EDT): Benign exam today, although vagina cannot be seen due to lack of appropriate speculum. No signs of inflammatory vaginitis under microscopy or Infection. Current symptoms may be due to vaginal vulvar dryness, recommend daily emollient to the vulva and consideration of vaginal estrogen. Defers a prescription for Terazol cream today and will wait for the culture that was sent Benign liver cyst 08/04/2020 01/02/2023 Overview (08/04/2020): Most recent imaging is US 07/2020 Family history of colon cancer 09/21/2019 01/02/2023 Asymptomatic microscopic hematuria 09/21/2019 10/10/2022 Overview (06/17/2020): High risk based on age. Referred to urology, Rx ativan to take PRN cystoscopy or other invasive procedure. Assessment & Plan (06/17/2020 9:24 AM EDT): Referred to urology, Rx ativan to take PRN cystoscopy or other invasive procedure. Assessment & Plan (06/10/2020 9:00 AM EDT): Will do previously ordered repeat UA and discuss Urology referral with Dr. Fan. Hormone replacement therapy 12/04/2017 01/22/2023 Assessment & Plan (01/02/2023 3:00 PM EDT): Patient is on medical therapy with Combipatch (estradiol/noethindrone acetate) patch 2 x weekly for hormone replacement therapy. She has been weaning herself off from the patch with plan for cessation. Discussed that HRT does increase risk of developing blood clots perioperatively in which case it would be recommended that she be treated with Eliquis or Xarelto for DVT prophylaxis. The patient prefers to completely stop her HRT now (~5 weeks before surgery) which will bring her risk of VTE back to normal/baseline, so that she may be anticoagulated with standard post-operative DVT prophylaxis (ASA 81 mg PO twice daily) Assessment & Plan (06/10/2020 8:59 AM EDT): Rx refilled, may consider discontinuation over the course of the next year. Assessment & Plan (12/04/2017 8:42 AM EDT): Reviewed I data: increased risk of breast cancer after >5 years of use and in women over 60. Gilmer expressed understanding re: risks and prefers to continue with Combipatch due to quality of life. Rx refilled. Low back pain 10/10/2022 Assessment & Plan (06/17/2020 9:25 AM EDT): Unfortunately Gilmer's back pain is getting worse, not better, despite excellent compliance with PT and HEP for the better part of a year and multiple changes in workplace ergonomics. XR results may not suffice to explain her pain and she needs advanced imaging to r/o structural abnormality. Assessment & Plan (09/21/2019 4:34 PM EDT): Pt reports normal MRI in the past year; I do not see this in her records and will need to confirm this as her occasional difficulty urinating does raise concern for tethered cord. Otherwise, recent imaging does show OA which is c/w pain and unsurprising. She has not had any bleeding since she stoppedthe diclofenac 5 mos ago so I think she doesn't need a scope right now but is a great candidate for a PATEL-2 inhibitor. I explained what this is and how it is an improvement, for her, over a nonselective NSAID. Recommend returning to PT, 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 detention use of lidocaine, not to exceed package directions for dose, is safe. F/u after PT is completed for re-eval. Encounters Date Type Department Care Team Description 01/05/2025 Orders Only [facility] [address] [facility] [address] [place] [address] Klaudia Fan MD Routine medical exam 01/04/2025 Telephone [facility] [address] [place] [address] [facility] order from Last 3 Months Immunizations Immunization Administration Dates Next Due COVID-19 (Pre-12/31) Moderna Vaccine, mRNA, PF 02/17/2021,04/28/2020,03/31/2020 COVID-19 (Pre-12/31) Pfizer Vaccine, Bivalent 12+ 01/12/2022 INFLUENZA, SPLIT VIRUS, TRIVALENT PF 12/12/2023 Influenza Quadrivalent Prese rvative Free IM 12/25/2022,12/25/2022,12/25/2022,2022,12/14/2021,12/08/2020,12/23/2018,1 ,12/06/2016,12/27/2014 Influenza Quadrivalent w/ Preservative IM 12/21/2015 Pneumococcal conjugate PCV20 03/09/2024 Tdap 11/02/2019 Zoster recombinant 02/18/2020,11/02/2019 Family History Medical History Relation Comments Colon cancer Brother 1 Hypertension Brother 2 Brain cancer Father small possibilit y this was genetic. they did NOT recommend any screening for Gilmer, though Prostate cancer Father Nephrolithiasis Maternal Grandfather Hypertension Mother Other Mother Pre-diabetic Colon cancer Paternal Grandfather Colon cancer Paternal Uncle Aneurysm Sister Relation Status Comments Brother 1 Alive Brother 2 Alive Father (Age 84) Maternal Grandfather Mother Alive Paternal Grandfather Paternal Uncle Sister Alive Social History Tobacco Use Types Packs/Day Years Used Date Smoking Tobacco: Former Cigarettes Q uit: 1980 Smokeless Tobacco: Never Tobacco Cessation:Counseling Given: Not Answered Comments:Quit in 20's Alcohol Use Standard Drinks/Week [...] high school, GED, job training, learning the French language, technical skills, or developing parenting skills)? [...] your housing situation today? I have mitul sing 03/09/2024 How many times have you move [...] or [place] 09/21/2019 11 :39 AM EDT Last Filed Vital Signs Vital Sign Reading Time Taken Comments Blood Pressure 118/70 03/09/2024 9:20 AM EST Pulse 84 03/09/2024 9:20 AM EST Temperature 38.1 C (100.5 F) 11/19/2023 10:15 AM EDT Respiratory Rate 17 11/08/2023 12:15 PM EDT Oxygen Saturation 97% 03/09/2024 9:20 AM EST Inhaled Oxygen Concentration - - Weight 70.3 kg (155 lb) 03/09/2024 9:20 AM EST Height 171 cm (5' 7.32 ) 03/09/2024 9:20 AM EST Body Mass Index 24.04 03/09/2024 9:20 AM EST Plan of Treatment Upcoming Encounters Date Type Department Care Team (Late st Contact Info) Description 03/30/2025 8:40 AM EST Office Visit [facility] [address] [facility] [address] [place] [address] Klaudia Fan MD [address] [facility] [address] [place] [address] Health Maintenance Due Date Last Done Comments COLOGUARD 10/27/2004 FIT TEST 10/27/2004 FOBT 10/27/2004 SIGMOIDOSCOPY 10/27/2004 VIRTUAL COLONOSCOPY 10/27/2004 INFLUENZA VACCINE (#1) 2024 , 12/25/2022, 12/25/2022, Additional history exists COVID-19 VACCINE ( season) 2024 05/17/2023, 01/12/2022, 07/21/2021, Additional history exists DEPRESSION SCREENING 03/09/2025 03/09/2024 HIV ONE-TIME SCREENING (18-65 YEARS) 03/10/2025 Postponed from 10/27/1977 (Patient Declines / Guardian Declines) SMOKING Hx and SMOKELESS TOBACCO SCREENING 08/26/2025 08/26/2024 MAMMOGRAM 08/26/2026 08/26/2024, 05/09, 03/28/2020, Additional history exists PAP SMEAR 01/19/2028 01/18/2023, 11/10, 12/04/2017 LIPID PANEL 03/27/2029 03/27/2024, 11/27/2019 Adult Td,Tdap Booster 11/01/2029 11/02/2019 COLONOSCOPY 07/25/2030 07/26/2023, 03/28/2018 COLORECTAL CANCER SCREENING 07/25/2030 RSV VACCINE (1 - 1-dose 75+ series) 10/27/2034 HEPATITIS C SCREENING Completed 11/17/2019, 016 ZOSTER VACCINES Completed 02/18/2020, 11/02/2019 PNEUMOCOCCAL VACCINES (50+ years) Completed 03/09/2024 OSTEOPOROSIS SCREENING INITIAL (ONE-TIME) Completed 01/05/2025 HEPATITIS A VACCINES Aged Out No long er eligible based on patient's age to complete this topic HIB VACCINES Aged Out No longer eligi ble based on patient's age to complete this topic MENINGOCOCCAL VACCINES (ACWY) Aged Out No longer eligible based on patient's age to complete this topic MENINGOCOCCAL VACCINES (B) Aged Out N o longer eligible based on patient's age to complete this topic Medical Devices Implanted Type Area Service Developer Device Identifier Shelf Expiration Date Model / Serial / Lot Hip 36mm 0 G7 [place] Type 1 Standard - [id number] Implanted:Qty: 1 on 02/06/2023 by Jeanine Qureshi MD at [facility] STANDARD Left: Hip [employer] 06/23/2032 [id number] / / [id number] Screw Dome 6.5x35mm G7 Aceetabular Low Profile Hip - [id number] Implanted:Qty: 1 on 02/06/2023 by Jeanine Qureshi MD at [facility] Left: Hip [employer] [id number] 08/13/2032 [id number] / / [id number] Acetabular Shell 52mm Size E G7 Porous Plasma [place] [employer] Hole - [id number] Implanted:Qty: 1 on 02/06/2023 by Jeanine Qureshi MD at [facility] Left: Hip [employer] [id number] 03/28/2032 [id number] / / [id number] Hip Stem [id number] 135deg Echo Bimetric Revision Titanium Porous Reduced Proximalimal Profile Neck - [id number] Implanted:Qty: 1 on 02/06/2023 by Jeanine Qureshi MD at [facility] Left: Hip [employer] [id number] 11/10/2030 [id number] / / [id number] Hip Liner 36mm E Acetabular Neutral G7 Longevity - [id number] Implanted:Qty: 1 on 02/06/2023 by Jeanine Qureshi MD at [facility] Left: Hip JAYA [employer] 02/06/[id number] / / [id number] Procedures Procedure Name Priority Date/Time Associated Diagnosis Comments BD DXA SCREENING Routine 01/05/2025 4:04 PM EDT Routine medical exam BI MAMMOGRAM SCREENING WITH TOMOSYNTHESIS WITH CAD (BILATERAL) Routine 08/26/2024 8:48 AM EDT Breast screening LIPID PANEL Routine 03/27/2024 3:10 PM EST Routine medical exam ENDOSCOPY, COLON 07/26/2023 9:48 AM EDT PAP TEST Routine 01/18/2023 12:00 AM EST HEPATITIS C ANTIBODY, QUALITATIVE Routine 11/17/2019 5:12 PM EDT Routine general medical examination at a health care facility from Last 3 Months or Most Recently Relevant to Health Maintenance Results * DXA Screening (01/05/2025 4:04 PM EDT) Anatomical Region Laterality Modality Bone Density Bone Density us Klaudia Fan MD IMG BD BONE DENSITY DEXA Fin al Result * BI MAMMOGRAM SCREENING WITH TOMOSYNTHESIS WITH CAD (BILATERAL) (08/26/2024 8:48 AM EDT) Anatomical Region Laterality Modality Breast Left, Breast Right, Breast Bilateral Bila teral Mammography 08/28/2024 8:43 AM EDT Impressions 08/28/2024 8:51 AM EDT No mammographic evidence of malignancy in either breast. Annual screening mammography is recommended. BI-RADS 1 NEGATIVE The patient will be notified of the results and recommendations. Narrative 08/28/2024 8:51 AM EDT BI MAMMOGRAM SCREENING WITH TOMOSYNTHESIS WITH CAD (BILATERAL) Additional patient information: Screening. COMPARISON: Comparison is made with relevant prior imaging. Breast composition: There are scattered areas of fibroglandular density. FINDINGS: No abnormal masses, suspicious calcifications, or other significant findings are identified mammographically in either breast. There has been no significant interval change. Procedure Note Kiki Mckeon MD - 08/28/2024 BI MAMMOGRAM SCREENING WITH TOMOSYNTHESIS WITH CAD (BILATERAL) Additional patient information: Screening. COMPARISON: Comparison is made with relevant prior imaging. Breast composition: There are scattered areas of fibroglandular density. FINDINGS: No abnormal masses, suspicious calcifications, or other significantfindings are identified mammographically in either breast. There has been no significant interval change. IMPRESSION: No mammographic evidence of malignancy in either breast. Annual screening mammography is recommended. BI-RADS 1 NEGATIVE The patient will be notified of the results and recommendations. Klaudia Fan MD IMG MG EXAMS Final Result * (ABNORMAL) Lipid panel (03/27/2024 3:10 PM EST) HDL 82 mg/dL [facility] Comment: Interpretation <40 mg/dL: Low HDL cholesterol (major risk factor for CHD) Greater than or equal to 60 mg/dL: High HDL cholesterol ( negative risk factor for CHD) HDL - cholesterol is affected by a number of factors, e.g. smoking, excerise, hormones, sex and age. CHOLESTEROL 157 0 - 240 mg/dL [facility] TRIGLYCERIDES 84 30 - 160 mg/dL [facility] LDL 58 50 - 129 mg/dL [facility] Comment: LDL levels in terms of risk for coronary heart disease: <100 mg/dL: Optimal 100-129 mg/dL: Near or above optimal 130-159 mg/dL: Borderline high 160-189 mg/dL: High >190 mg/dL: Very High CARDIAC RISK RATIO 1.9(L) 3.3 - 4.4 C [facility] Blood 03/27/2024 3:10 PM EST 03/27/2024 3:13 PM EST us Klaudia Fan MD LAB BLOOD ORDERABLES Final R esult [address] [address] * ENDOSCOPY, COLON (07/26/2023 9:48 AM EDT) Narrative Transcriptions Jeanine Barber MD - 07/26/2023 9:48 AM EDT [facility] Patient Name: Gilmer Madrigal Attending MD:: JEANINE BARBER MD, Procedure Date: 07/26/2023 9:48 AM Date of : 1960 Age: 62 Admit Type: Outpatient Gender: Female Room: [place] [address] Referring MD: Klaudia aFn Exam Type: Colonoscopy Indications: Screening for colon cancer: Family history of colorectal cancer in multiple 2nd degree relatives, Screening in patient at increased risk: Colorectal cancer in brother before age 60, Last colonoscopy: March 2018 Medications: Monitored Anesthesia Care Procedure: Informed consent was obtained from the patientafter discussion of the indications, limitations, alternatives, benefits, and risks of the procedure. Risks specifically discussed include but are not limited to medication reactions, missed lesions, bleeding, perforation, or the need for emergent surgery. Throughout the procedure, the patient's blood pressure, pulse, end-tidal CO2, and oxygensaturations were monitored continuously. The Olympus pediatric variable [id number] #1 was introduced through the anus and advanced tothe cecum, identified by the appendiceal orifice, ileocecal valve and palpation. The colonoscopy was technically difficult and complex due tosignificant looping. Successful completion of the procedure was aided by applying abdominal pressure. The patient tolerated the procedure fairly well. The quality of the bowel preparation was good. The ileocecalvalve, appendiceal orifice, and rectum werephotographed. Complications: No immediate complications. Estimated blood loss:None. Findings: The perianal and digital rectal examinations were normal. Pertinent negatives include normalsphincter tone. A few small-mouthed diverticula were found in the descending colon. The colon (entire examined portion) was moderately redundant. Retroflexion in the right colon was performed. Non-bleeding internal hemorrhoids were found during retroflexion. The hemorrhoids were moderate. The exam was otherwise without abnormality ondirect and retroflexion views. Impression: - Diverticulosis in the descending colon. - Redundant colon. - Non-bleeding internal hemorrhoids. - The examination was otherwise normal on directand retroflexion views. - No specimens collected. Recommendation: - Repeat colonoscopy in 7-10 years for screening purposes. - Patient has a contact number available for emergencies. The signs and symptoms of potential delayed complications were discussed with thepatient. Return to normal activities tomorrow. Written discharge instructions were provided to thepatient. JEANINE BARBER MD 07/26/2023 10:23:49 AM This report has been signed electronically. Number of Addenda: 0 Note Initiated On: 07/26/2023 9:48 AM Procedure Code(s): --- Professional --- 88102, Colonoscopy, flexible; diagnostic, including collection of specimen(s) by brushing or washing, when performed (separateprocedure) --- Technical --- 63642, Colonoscopy, flexible; diagnostic, including collection of specimen(s) by brushing or washing, when performed (separateprocedure) Diagnosis Code(s): --- Professional --- K64.8, Other hemorrhoids Z80.0, Family history of malignant neoplasm of digestive organs K57.30, Diverticulosis of large intestine without perforation or abscess without bleeding Q43.8, Other specified congenital malformations of intestine --- Technical --- K64.8, Other hemorrhoids Z80.0, Family history of malignant neoplasm of digestive organs K57.30, Diverticulosis of large intestine without perforation or abscess without bleeding Q43.8, Other specified congenital malformations of intestine CPT copyright 2021 [employer]. All rights reserved. The codes documented in this report are preliminary and upon director of business applications reviewmay be revised to meet current compliance requirements. Procedure Date: 07/26/2023 9:48:[address] [place] [id number] us Klaudia Fan MD GI PROCEDURE ORDERABLES Kati alexander Result * Pap Test (01/18/2023 12:00 AM EST) 01/18/2023 01/21/2023 9:0 3 AM EST Narrative SEE NARRATIVE - 01/24/2023 9:12 AM EST [address] [address] [employer] Supervisor: Kelly Alonso MD IOS DEVELOPER Cytology Report FINAL DIAGNOSIS A. PAP SMEAR (SUREPATH) CE: SPECIMEN ADEQUACY: Satisfactory for evaluation; transformation zone absent/insufficient. INTERPRETATION: NEGATIVE FOR INTRAEPITHELIAL LESION OR MALIGNANCY. Coccobacilli consistent with shift in cinthia Electronically Signed Out By: RHONA Rodriguez(ASCP) The Pap test is a screening test primarily for squamous cancers and precursors and has associated false-negative and false-positive results. New technologies such as liquid-based preparations may decrease but will not eliminate all false-negative results. Regular sampling and follow-up of unexplained clinical signs and symptoms are recommended to minimize false negative results. PROCEDURES/ADDENDA HPV Testing (Requested) Ordered Date: 01/21/2023 A. PAP SMEAR (SUREPATH) CE: Human Papilloma Virus Test NEGATIVE for high-risk Human Papilloma Virus types 16, 18, 45 and the Other high risk probe set (Includes 31, 33, 35, 39, 51, 52, 56, 58, 59, 66, 68) Note: Testing performed by [employer] Onclarity HR-HPV analysis. Clinical correlation is advised. This HPV test was performed at [facility], [address] [place] [address]. This test has been FDA approved for SurePath cervical cytology specimens. The accuracy and precision of this test for all other specimen sources has been verified in the Cytopathology Laboratory of the [facility] and has not been cleared or approved by the U.S. Food and Drug Administration. Clinical correlation is advised. CLINICAL HISTORY Date of Last Menstrual Period: Not Provided Menstrual History: Post Menopausal Other Clinical Conditions: Screening Pap SPECIMEN SOURCE A: PAP SMEAR (SUREPATH) CE Patient Name: GILMER MADRIGAL : 1960 (Age: 62) Sex: F Institution: [facility] Location: [facility] Date of Collection: 01/18/2023 Date of Reported: 01/24/2023 09:12 Results to: Isabel Lozada MD Isabel Lozada MD CYTOLOGY ORDERABLES Final Res ult Performing Organization Address City/[facility] Co de Phone Number SEE NARRATIVE * Hepatitis C antibody, qualitative (11/17/2019 5:12 PM EDT) HCV NON-REACTIV E NON-REACTI VE [facility] Blood 11/17/2019 5:12 PM EDT 11/17/2019 5:19 PM EDT Klaudia Fan MD LAB BLOOD ORDERABLES Final R esult Performing Organization Address City/[facility]/ZIP Co de Phone Number [facility] [address] [place] [address] from Last 3 Months or Most Recently Relevant to Health Maintenance [place] [address] [address] EMPLOYEES [employer]ILY [employer] EM[employer]ES [employer] [address] [place] [address] [place] [address] EMPLOYEES FAMILY [facility] EMPLOYEES FAMILY [email or web address] [address] [place] [address] [place] [address] EMPLOYEES FAMILY [email or web address] Member Subscriber Plan / Payer (Ef fective 2024-) Name:Gilmer Madrigal Relation to Subscriber:Self Name:Gilmer Madrigal Payer ID:[id number] (NAIC) Type:PPO Address: [place] [id number] EMPLOYEES FAMILY [email or web address]RAT[employer] Advance Directives For more information, please contact: [phone] (9AM - 5PM [facility], Saturday-Saturday) * Full Code (Latest Code Status on File) Date Activated Date Inactivated Comments 02/06/2023 6:27 AM Question Answer Comments Code Status Confirmed With: Patient Care Teams Aadc Plans Staff Officer Relationship Specialty Start Date End Date Klaudia Fan MD [address] [place] [address] [email or web address] PCP - General Family Medicine 09/21/19 Additional Source Comments The information contained in this document represents components of the legal health record. It is not the complete legal health record.[facility]
--- OUTSIDE RECORDS SUMMARY | 2025-01-05 18:36 | XMS_ITS | Encounter Summary ---
Author Organization [facility] Address [address] [place] [address] Phone Care Team Providers Care Licensed Optical Dispenser Name Role Phone Jackie Swanson MD Primary Care Provider [phone] Klaudia Fan MD Primary Care Provider [phone] Encounter Details Date Type Department Care Team (Latest Contact Info) Description 11/06/2017 Transcribe Orders [facility] [address] [place] [address] Saira Huffman ARNP Pre-employment health screening examination (Primary Dx) Social History Tobacco Use Types [...] Description 03/30/2025 8:40 AM EST [facility] [address] [facility] [address] [place], [place] [id number] Klaudia Fan MD [address] [facility] [address] [place] [address] [email or web address] documented as of this encounter Results * T spot TB test (11/06/2017 10:34 AM EDT) T SPOT Tuberculosis Negative [facility] Blood 11/06/2017 10:3 4 AM EDT 11/06/2017 10:37 AM EDT us Saira Huffman [facility] LAB BLOOD ORDERABLES Final Result [facility] [address] [place] [address] documented in this encounter Visit Diagnoses Diagnosis Pre-employment health screening examination- Primary Health examination of defined subpopulation documented in this encounter Additional Health Concerns Infection Onset Date Last Indicated Resolved Time CoV-Risk 11/19/2019 11/19/2019 11/19/2019 4:18 PM EDT CoV-Risk 04/29/2020 04/29/2020 05/09/2020 1:23 AM EST CoV-Exposed Comment:From COVIDPass 08/21/2021 08/21/2021 09/01/2021 1:24 A M EDT COVID-19 11/19/2023 11/19/2023 12/10/2023 1:21 AM EDT documented as of this encounter Care Teams Licensed Optical Dispenser Relationship Specialty Start Date End Date Jackie Swanson MD [address] [place] [address] PCP - General Internal Medicine 05/31/17 09/20/19 Klaudia Fan MD [address] [place] [address] PCP - General Family Medicine 09/21/19 documented as of this encounter Additional Source Comments The information contained in this document represents components of the legal health record. It is not the complete legal health record.[facility]
--- OUTSIDE RECORDS SUMMARY | 2025-01-05 18:36 | XMS_ITS | Encounter Summary ---
Author Organization [facility] Address [address] [place] [address] Phone Care Team Providers Care Equine Intern Name Role Phone Jackie Swanson MD Primary Care Provider [phone] Klaudia Fan MD Primary Care Provider + [phone] Encounter Details Date Type Department Care Team (Late Contact Info) Description 01/31/2018 Ancillary Orders [facility], X-Ray - [address] [address] Jackie Swanson MD [address] [place] [address] [email or web address] Pain in left hip Social History Tobacco Use Types Packs/Day Years Used Date Smoking Tobacco: Never Smokeless Tobacco: Never Alcohol Use Standard Drinks/Week Comments Yes 0 (1 standard drink = 0.6 oz pur [...] Description 03/30/2025 8:40 AM EST Office Visit [facility] Primary Care [address] [facility] [address] [place], [place] [phone] Klaudia Fan MD [address] [facility] [address] [place] [address] [email or web address] documented as of this encounter Results * XR HIP 2 VW LEFT PLUS PELVIS (01/31/2018 12:00 PM EST) Anatomical Region Laterality Modality Hip, Pelvis Radiographic Kylee ging 01/31/2018 12:0 2 PM EST Impressions 01/31/2018 12:12 PM EST Moderate left hip osteoarthritis and mild right hip osteoarthritis both of which have progressed since 2011. No acute bony changes. POS [id number] Narrative 01/31/2018 12:12 PM EST 3 views Compare to sacral films from 06/22/2017 and reconstructions of abdomen CT from 06/10/2011. Moderate joint space narrowing, subchondral cyst formation and marginal spurring is present on both sides of the left hip, moderately progressed since 2011. Much milder joint space narrowing and subchondral sclerosis, mostly on the acetabular side of the right hip. 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 No evidence of trauma, tumor, AVN or obvious impingement. No soft tissue calcifications. Procedure Note Bryan Copeland MD - 01/31/2018 3 views Compare to sacral films from 06/22/2017 and reconstructions of abdomen CTfrom 06/10/2011. Moderate joint space narrowing, subchondral cyst formation and marginalspurring is present on both sides of the left hip, moderately progressedsince 2011. Much milder joint space narrowing and subchondral sclerosis, mostly on theacetabular side of the right hip. Sclerosis on the iliac side of both SI joints is unchanged and very likelybenign osteitis condensans ilii. No evidence of trauma, tumor, AVN or obvious impingement. No soft tissue calcifications. IMPRESSION: Moderate left hip osteoarthritis and mild right hip osteoarthritis both ofwhich have progressed since 2011. No acute bony changes. POS [id number] Jackie Swanson MD IMG XR PELVIS Final Result documented in this encounter Visit Diagnoses Diagnosis Pain in left hip Pain in left hip documented in this encounter Additional Health Concerns Infection Onset Date Last Indicated Resolved Time CoV-Risk 11/19/2019 11/19/2019 11/19/2019 4:18 PM EDT CoV-Risk 04/29/2020 04/29/2020 05/09/2020 1:23 AM EST CoV-Exposed Comment:From COVIDPass 08/21/2021 08/21/2021 09/01/2021 1:24 A M EDT COVID-19 11/19/2023 11/19/2023 12/10/2023 1:21 AM EDT documented as of this encounter Care Teams Equine Intern Relationship Specialty Start Date End Date Jackie Swanson MD [address] [place] [address] PCP - General Internal Medicine 05/31/17 09/20/19 Klaudia Fan MD [address] [place] [address] [email or web address] PCP - General Family Medicine 09/21/19 documented as of this encounter Additional Source Comments The information contained in this document represents components of the legal health record. It is not the complete legal health record.[facility]
--- OUTSIDE RECORDS SUMMARY | 2025-01-05 18:36 | XMS_ITS | Encounter Summary ---
Author Organization [facility] Address [address] [facility] [address] [place] [address] Phone Care Team Providers Care Pump Erector Name Role Phone Klaudia Fan MD Primary Care Provider [phone] Encounter Details Date Type Department Care Team ([facility] st Contact Info) Description 08/01/2022 Ancillary Orders [facility] [address] [place] [address] Mandy Navas MD [address] [place] [address] Orthopedics & Sports Medicine, [facility] [place], [place] [id number] [email or web address] Social History Tobacco Use Types Packs/Day Years [...] Description 03/30/2025 8:40 AM EST Office Visit [facility] Primary Care [address] [facility] [address] [place] [address] Klaudia Fan MD 15 [facility] [address] [place] [address] documented as of this encounter Visit Diagnoses Not on filedocumented in this encounter Additional Health Concerns Infection Onset Date Last Indicated Resolved Time COVID-19 11/19/2023 11/19/2023 12/10/2023 1:21 AM EDT documented as of this encounter Care Teams Pump Erector Relationship Specialty Start Date End Date Klaudia Fan MD 15 [facility]. [address] [place] [address] PCP - General Family Medicine 09/21/19 documented as of this encounter Additional Source Comments The information contained in this document represents components of the legal health record. It is not the complete legal health record.[facility]
--- OUTSIDE RECORDS SUMMARY | 2025-01-05 18:36 | XMS_ITS | Encounter Summary ---
Author Organization [facility] Address [address] [facility] [address] [place] [address] Phone Care Team Providers Care Import Dispatcher Name Role Phone Klaudia Fan MD Primary Care Provider [phone] Reason for Visit * Reason Onset Date Comments Imaging order 01/04/2025 Encounter Details Date Type Department Care Team ([facility] st Contact Info) Description 01/04/2025 Telephone Definiens [facility] [address] [place] [address] [email or web address] Imaging order Social History Tobacco Use Types Packs/Day Years [...] high school, GED, job training, learning the Palau[place] language, technical skills, or developing parenting skills)? [...] AM EDT documented as of this encounter Progress Notes * Elizabeth Petty - 01/04/2025 9:03 AM EDT Opal [facility] called in stating the patient is having a bone density and an updated order with the ICD 10 code N95.8 is needed. Fax number is [phone]. Please contact and advise. Central Support Criminal Court Judge (Please do not reply to this user; this inbox is not monitored.) Thank you. documented in this encounter Plan of Treatment Upcoming Encounters Date Type Department Care Team (Late st Contact Info) Description 03/30/2025 8:40 AM EST Office Visit [facility] Primary Care [address] [facility] [address] [place] [address] Klaudia Fan MD [address] [place] [address] [email or web address] documented as of this encounter Visit Diagnoses Not on filedocumented in this encounter Additional Health Concerns Assessment Noted Time PHQ-2 Depression Total Score: 1 03/09/20 24 7:16 AM EST documented as of this encounter Care Teams Import Dispatcher Relationship Specialty Start Date End Date Klaudia Fan MD [address] [address] PCP - General Family Medicine 09/21/19 documented as of this encounter Additional Source Comments The information contained in this document represents components of the legal health record. It is not the complete legal health record.[facility]
--- OUTSIDE RECORDS SUMMARY | 2025-01-05 18:36 | XMS_ITS | Encounter Summary ---
Author Organization [facility] Address [address] [facility] [address] [place] [address] Phone Care Team Providers Care Makeup Artist Name Role Phone Jackie Swanson MD Primary Care Provider + [phone] Klaudia Fan MD Primary Care Provider + [phone] Encounter Details Date Type Department Care Team (Late st Contact Info) Description 12/12/2018 Ancillary Orders [facility] [address] [place] [address] Isabel Lozada MD [address] [facility] [place] [address] [email or web address] Social History Tobacco Use Types Packs/Day Years [...] 8:40 AM EST Office Visit [facility] [address] [facility] [address] [place], [place] [phone] Klaudia Fan MD [address] [address] [email or web address] documented as of this encounter Visit Diagnoses Not on filedocumented in this encounter Additional Health Concerns Infection Onset Date Last Indicated Resolved Time CoV-Risk 11/19/2019 11/19/2019 11/19/2019 4:18 PM EDT CoV-Risk 04/29/2020 04/29/2020 05/09/2020 1:23 AM EST CoV-Exposed Comment:From COVIDPass 08/21/2021 08/21/2021 09/01/2021 1:24 A M EDT COVID-19 11/19/2023 11/19/2023 12/10/2023 1:21 AM EDT documented as of this encounter Care Teams Makeup Artist Relationship Specialty Start Date End Date Jackie Swanson MD [address] [place] [address] [email or web address] PCP - General Internal Medicine 05/31/17 09/20/19 Klaudia Fan MD [address] [place] [address] PCP - General Family Medicine 09/21/19 documented as of this encounter Additional Source Comments The information contained in this document represents components of the legal health record. It is not the complete legal health record.[facility]
--- OUTSIDE RECORDS SUMMARY | 2025-01-05 18:36 | XMS_ITS | Encounter Summary ---
Author Organization [facility] Address [address] [place] [address] [place] [address] Phone Care Team Providers Care Mercantile Reporter Name Role Phone Klaudia Fan MD Primary Care Provider + [phone] Reason for Referral * Outpatient Procedure - Closed Specialty Diagnoses / Procedures Referred By Contac t Referred To Contact Radiology Diagnoses Other microscopic hematuria Personal history of urinary calculi Procedures US Kidneys and Bladder Marleni Spence MD Phone: tel: fax: [email or web address] Referral ID Status Reason Start Date Expiration Date Visits Re quested Visits Authorized [id number] Closed 12/20/2020 12/20/2021 1 1 Encounter Details Date Type Department Care Team (Latest Contact Info) Description 12/20/2020 Transcribe Orders Virtual Department 30 [place] [address] Marleni Spence MD [address] [place] [address] Other microscopic hematuria (Primary Dx); Personal history of urinary calculi Social History Tobacco Use Types Packs/Day Years [...] Description 03/30/2025 8:40 AM EST Office Visit [facility] [address] [facility] [address] [place] [address] Klaudia Fan MD 15 [facility] [address] [place] [address] [email or web address] documented as of this encounter Results * US Kidneys and Bladder (01/06/2021 8:55 AM EDT) Anatomical Region Laterality Modality Abdomen, Kidney Ultrasound 01/06/2021 8:57 AM EDT Impressions 01/06/2021 9:05 AM EDT 1.No evidence of nephrolithiasis or hydronephrosis. 2.Minimal postvoid bladder residual. Narrative 01/06/2021 9:05 AM EDT COMPARISON: Limited abdomen ultrasound 08/04/2020. CT abdomen pelvis 06/10/2011. RENAL AND BLADDER ULTRASOUND FINDINGS: Bladder: Prevoid volume is 474 cc. Postvoid volume is 39 cc or 8%. Ureteral jets are visualized. No bladder wall thickening, masses or calculi. Kidneys: Right kidney measures 10 x 3 cm. No hydronephrosis, masses or calculi. Cortical echogenicity and thickness are normal. No perinephric fluid collections. Left kidney measures 10 x 5 cm. No hydronephrosis, masses or calculi. Cortical echogenicity and thickness are normal. No perinephric fluid collections. Procedure Note Niels Zhang MD - 01/06/2021 COMPARISON: Limited abdomen ultrasound 08/04/2020. CT abdomen pelvis06/10/2011. RENAL AND BLADDER ULTRASOUND FINDINGS: Bladder: Prevoid volume is 474 cc. Postvoid volume is 39 cc or 8%.Ureteral jets are visualized. No bladder wall thickening, masses orcalculi. Kidneys: Right kidney measures 10 x 3 cm. No hydronephrosis, masses or calculi.Cortical echogenicity and thickness are normal. No perinephric fluidcollections. Left kidney measures 10 x 5 cm. No hydronephrosis, masses or calculi.Cortical echogenicity and thickness are normal. No perinephric fluidcollections. IMPRESSION: 1.No evidence of nephrolithiasis or hydronephrosis. 2.Minimal postvoid bladder residual. us Marleni Spence MD IMG US RENAL Final Resu lt * XR ABDOMEN 1 VIEW (01/06/2021 8:27 AM EDT) Anatomical Region Laterality Modality Abdomen Computed Radiogr aphy 01/06/2021 8:36 AM EDT Impressions 01/06/2021 8:40 AM EDT 1.No renal calculi. Small left pelvic calcification which may represent an incidental phlebolith. 2.Mild bilateral hip osteoarthritis. Narrative 01/06/2021 8:40 AM EDT COMPARISON: CT abdomen pelvis 06/10/2011. ABDOMEN RADIOGRAPH FINDINGS: Views: 3. Lung Bases/Heart: Normal. Bowel: Unremarkable. Soft Tissues: No radiopaque renal calculi. Chronic small left pelvic calcification which may represent a phlebolith. Bones: Mild bilateral hip arthritis. Procedure Note Niels Zhang MD - 01/06/2021 COMPARISON: CT abdomen pelvis 06/10/2011. ABDOMEN RADIOGRAPH FINDINGS: Views: 3. Lung Bases/Heart: Normal. Bowel: Unremarkable. Soft Tissues: No radiopaque renal calculi. Chronic small left pelviccalcification which may represent a phlebolith. Bones: Mild bilateral hip arthritis. IMPRESSION: 1.No renal calculi. Small left pelvic calcification which may represent anincidental phlebolith. 2.Mild bilateral hip osteoarthritis. us Marleni Spence MD IMG XR ABDOMEN Final Resu lt documented in this encounter Visit Diagnoses Diagnosis Other microscopic hematuria- Primary Personal history of urinary calculi Other microscopic hematuria Personal history of urinary calculi Other microscopic hematuria Personal history of urinary calculi documented in this encounter Additional Health Concerns Infection Onset Date Last Indicated Resolved Time CoV-Exposed Comment:From COVIDPass 08/21/2021 08/21/2021 09/01/2021 1:24 A M EDT COVID-19 11/19/2023 11/19/2023 12/10/2023 1:21 AM EDT documented as of this encounter Care Teams Mercantile Reporter Relationship Specialty Start Date End Date Klaudia Fan MD [address] [place] [address] [email or web address] PCP - General Family Medicine 09/21/19 documented as of this encounter Additional Source Comments The information contained in this document represents components of the legal health record. It is not the complete legal health record.[facility]
--- OUTSIDE RECORDS SUMMARY | 2025-01-05 18:36 | XMS_ITS | Encounter Summary ---
Author Organization [facility] Address [address] [facility] [address] [place] [address] Phone Care Team Providers Care Publicity Person Name Role Phone Jackie Swanson MD Primary Care Provider + [phone] Klaudia Fan MD Primary Care Provider + [phone] Reason for Referral * MRI/CAT Scan - Closed Specialty Diagnoses / Procedures Referred By Sid gallardo Referred To Contact Radiology Diagnoses Sacrococcygeal disorders, not elsewhere classified Procedures MRI Pelvis (Bone) Jackie Swanson MD Phone: tel: [email or web address] Referral ID Status Reason Start Date Expiration Date Visits Re quested Visits Authorized [id number] Closed 07/09/2017 09/06/2017 1 1 Encounter Details Date Type Department Care Team (Latest Contact Info) Description 07/11/2017 Ancillary Orders Virtual Department 30 [place] [address] Jackie Swanson MD 25 [place] [address] [email or web address] Sacrococcygeal disorders, not elsewhere classified Social History Tobacco Use Types Packs/Day Years [...] Description 03/30/2025 8:40 AM EST Office Visit [facility] [address] [facility] [address] [place] [address] Klaudia Fan MD [address] [facility] [address] [place] [address] [email or web address] documented as of this encounter Results * MRI PELVIS (BONY FOCUS) WITHOUT CONTRAST (07/29/2017 9:43 AM EDT) Anatomical Region Laterality Modality Pelvis Magnetic Resonan ce 07/29/2017 10:0 1 AM EDT Impressions 07/29/2017 10:11 AM EDT No fractures or dislocations. POS [id number] Narrative 07/29/2017 10:11 AM EDT EXAM: MRI PELVIS (BONY FOCUS) WITHOUT CONTRAST COMPARISON: Radiograph of the sacrum on June 22, 2017 describes possible fracture deformity of the proximal coccyx. TECHNIQUE: Axial T1, T2, STIR, coronal T1 and STIR, sagittal T1 and STIR were obtained per departmental protocol without administration of intravenous contrast FINDINGS: Bones/joints: No bone marrow edema. No fracture or dislocations. Bilateral sacroiliac joints and bilateral hip joints are congruent. No subluxations. Intervertebral discs: Desiccation changes of L4-L5 disc without significant loss of height. Remaining visualized discs appear unremarkable. Pelvic organs: 1.0 cm intramural leiomyoma in the posterior wall of the uterus. Urinary bladder is decompressed. Visualized bowel loops are unremarkable. Overlying soft tissues are grossly unremarkable. Procedure Note Xena Alejandro MD - 07/29/2017 EXAM: MRI PELVIS (BONY FOCUS) WITHOUT CONTRAST COMPARISON: Radiograph of the sacrum on June 22, 2017 describes possiblefracture deformity of the proximal coccyx. TECHNIQUE: Axial T1, T2, STIR, coronal T1 and STIR, sagittal T1 and STIRwere obtained per departmental protocol without administration ofintravenous contrast FINDINGS: Bones/joints: No bone marrow edema. No fracture or dislocations. Bilateralsacroiliac joints and bilateral hip joints are congruent. Nosubluxations. Intervertebral discs: Desiccation changes of L4-L5 disc withoutsignificant loss of height. Remaining visualized discs appearunremarkable. Pelvic organs: 1.0 cm intramural leiomyoma in the posterior wall of theuterus. Urinary bladder is decompressed. Visualized bowel loops areunremarkable. Overlying soft tissues are grossly unremarkable. IMPRESSION: No fractures or dislocations. POS [id number] Jackie Swanson MD IMG MR PELVIS Final Result documented in this encounter Visit Diagnoses Diagnosis Sacrococcygeal disorders, not elsewhere classified Sacrococcygeal disorders, not elsewhere classified documented in this encounter Additional Health Concerns Infection Onset Date Last Indicated Resolved Time CoV-Risk 11/19/2019 11/19/2019 11/19/2019 4:18 PM EDT CoV-Risk 04/29/2020 04/29/2020 05/09/2020 1:23 AM EST CoV-Exposed Comment:From COVIDPass 08/21/2021 08/21/2021 09/01/2021 1:24 A M EDT COVID-19 11/19/2023 11/19/2023 12/10/2023 1:21 AM EDT documented as of this encounter Care Teams Publicity Person Relationship Specialty Start Date End Date Jackie Swanson MD [address] [place] [phone] [email or web address] PCP - General Internal Medicine 05/31/17 09/20/19 Klaudia Fan MD [address] [place] [id number] PCP - General Family Medicine 09/21/19 documented as of this encounter Additional Source Comments The information contained in this document represents components of the legal health record. It is not the complete legal health record.[facility]
--- OUTSIDE RECORDS SUMMARY | 2025-01-05 18:36 | XMS_ITS | Encounter Summary ---
Author Organization [facility] Address [address] [facility] [address] [place] [address] Phone Care Team Providers Care Instrument Processing Tech Name Role Phone Jackie Swanson MD Primary Care Provider [phone] Klaudia Fan MD Primary Care Provider [phone] Encounter Details Date Type Department Care Team (Late st Contact Info) Description 07/11/2017 Procedure Pass [facility], [address] [place] [address] Social History Tobacco Use Types Packs/Day Years [...] Description 03/30/2025 8:40 AM EST Office Visit [facility] [address] [facility] [address] [place], [place] [phone] Klaudia Fan MD 15 [facility] [address] [place] [address] [email or web address] documented as [...] documented as of this encounter Care Teams Instrument Processing Tech Relationship Specialty Start Date End Date Jackie Swanson MD [address] [place] [phone] PCP - General Internal Medicine 05/31/17 09/20/19 Klaudia Fan MD [address] [place] [address] PCP - General Family Medicine 09/21/19 documented as of this encounter Additional Source Comments The information contained in this document represents components of the legal health record. It is not the complete legal health record.[facility]
--- OUTSIDE RECORDS SUMMARY | 2025-01-05 18:36 | XMS_ITS | Encounter Summary ---
Author Organization [facility] Address [address] [facility] [address] [place] [address] Phone Care Team Providers Care Fish Smoker Name Role Phone Klaudia Fan MD Primary Care Provider [phone] Encounter Details Date Type Department Care Team (Late st Contact Info) Description 03/17/2020 Telemedicine [facility] [address] [place] [address] Quentin Reddy [place] 22 [place] [address] [email or web address] Social History Tobacco Use Types Packs/Day Years [...] EST Office Visit [facility] [place] [facility] [address] [facility] [address] [place] [address] Klaudia Fan MD 15 [facility] [address] [place] [address] [email or web address] documented as of this encounter Visit Diagnoses Not on filedocumented in this encounter Additional Health Concerns Infection Onset Date Last Indicated Resolved Time CoV-Risk 04/29/2020 04/29/2020 05/09/2020 1:23 AM EST CoV-Exposed Comment:From COVIDPass 08/21/2021 08/21/2021 09/01/2021 1:24 A M EDT COVID-19 11/19/2023 11/19/2023 12/10/2023 1:21 AM EDT documented as of this encounter Care Teams Fish Smoker Relationship Specialty Start Date End Date Klaudia Fan MD 15 [place] [address] [email or web address] PCP - General Family Medicine 09/21/19 documented as of this encounter Additional Source Comments The information contained in this document represents components of the legal health record. It is not the complete legal health record.[facility]
--- OUTSIDE RECORDS SUMMARY | 2025-01-05 18:36 | XMS_ITS | Encounter Summary ---
Author Organization [facility] Address [address] [place] [address] Phone Care Team Providers Care Inspector Air Carrier Name Role Phone Jackie Swanson MD Primary Care Provider + [phone] Klaudia Fan MD Primary Care Provider + [phone] Reason for Referral * Physical Therapy (Elective) - Closed Specialty Diagnoses / Procedures Referred By Sid gallardo Referred To Contact Physical Therapy Diagnoses Encounter for rehabilitation Low Back Pain Procedures Evaluate & Treat Jackie Swanson MD Phone: tel: [email or web address] [address] [place] [address] Phone: tel: Referral ID Status Reason Start Date Expiration Date Visits Re quested Visits Authorized [id number] Closed 03/09/2019 03/10/2020 50 50 Encounter Details Date Type Department Care Team (Latest Contact Info) Description 03/02/2019 Transcribe Orders [facility] 4 [place] [address] Jackie Swanson MD 25 [place] [address] [email or web address] Encounter for rehabilitation (Primary Dx) Social History Tobacco Use Types [...] AM EST Office Visit [facility] 15 [facility] [address] [place] [address] Klaudia Fan MD 15 [facility] [address] [place] [address] [email or web address] documented as of this encounter Procedures Procedure Name Priority Date/Time Associated Diagnosis Comments AMB REFERRAL TO [facility] PHYSICAL THERAPY Routine 03/09/2019 11:14 AM EST Encounter for rehabilitation documented in this encounter Results * Ambulatory referral to [facility] Physical Therapy (03/09/2019 11:14 AM EST) Jackie Swanson MD AMB [facility] REFERRALS Final Resu lt documented in this encounter Visit Diagnoses Diagnosis Encounter for rehabilitation- Primary documented in this encounter Additional Health Concerns Infection Onset Date Last Indicated Resolved Time CoV-Risk 11/19/2019 11/19/2019 11/19/2019 4:18 PM EDT CoV-Risk 04/29/2020 04/29/2020 05/09/2020 1:23 AM EST CoV-Exposed Comment:From COVIDPass 08/21/2021 08/21/2021 09/01/2021 1:24 A M EDT COVID-19 11/19/2023 11/19/2023 12/10/2023 1:21 AM EDT documented as of this encounter Care Teams Inspector Air Carrier Relationship Specialty Start Date End Date Jackie Swanson MD [address] [place] [address] 1 [place] [address] [email or web address] PCP - General Internal Medicine 05/31/17 09/20/19 Klaudia Fan MD [address] [address] [email or web address] PCP - General Family Medicine 09/21/19 documented as of this encounter Additional Source Comments The information contained in this document represents components of the legal health record. It is not the complete legal health record.[facility]
--- OUTSIDE RECORDS SUMMARY | 2025-01-05 18:36 | XMS_ITS | Encounter Summary ---
Author Organization [facility] Address [address] [facility] [address] [place] [address] Phone Care Team Providers Care Manager Print Name Role Phone Jackie Swanson MD Primary Care Provider [phone] Klaudia Fan MD Primary Care Provider [phone] Encounter Details Date Type Department Care Team (Late Contact Info) Description 01/29/2018 Transcribe Orders [facility] [address] [place] [address] Jackie Swanson MD 25 [place] [address] [email or web address] Mild cognitive impairment (Primary Dx); Vitamin D deficiency Social History Tobacco Use Types Packs/Day Years [...] Description 03/30/2025 8:40 AM EST Office Visit [facility] Primary Care [address] [facility] [address] [place], [place] [phone] Klaudia Fan MD 15 [facility] [address] [place] [address] [email or web address] documented as of this encounter Results * 25-OH vitamin D (01/29/2018 2:55 PM EST) 25 [place] VIT D (TOTAL) 54 30 - 60 ng/mL [facility] Blood 01/29/2018 2:55 PM EST 01/29/2018 3:00 PM EST us Jackie Swanson MD LAB BLOOD ORDERABLES Final R esult [address] [address] * TSH with reflex (01/29/2018 2:55 PM EST) Pathologist [facility] TSH 1.66 0.27 - 4.20 uIU/mL [facility] Blood 01/29/2018 2:55 PM EST 01/29/2018 3:00 PM EST us Jackie Swanson MD LAB BLOOD ORDERABLES Final R esult [address] [address] * Vitamin B12 (01/29/2018 2:55 PM EST) VITAMIN B12 830 232 - 1,245 pg/mL [facility] Blood 01/29/2018 2:55 PM EST 01/29/2018 3:00 PM EST Jackie Swanson MD LAB BLOOD ORDERABLES Final R esult [address] [address] * Methylmalonic acid, serum (01/29/2018 2:55 PM EST) METHYLMALONIC ACID 0.13 <=0.40 nmol/mL [facility] OF LAB MED AND PAT+ Comment: (NOTE) ADDITIONAL INFORMATION This test was developed and its performance characteristics determined by [facility] in a manner consistent with CLIA requirements. This test has not been cleared or approved by the U.S. Food and Drug Administration. Blood 01/29/2018 2:55 PM EST 01/29/2018 3:00 PM EST Jackie Swanson MD LAB BLOOD ORDERABLES Final R esult Performing Organization Address [facility] de Phone Number [facility] OF LAB MED AND PAT+ [address] [place] [address] * Homocysteine (01/29/2018 2:55 PM EST) HOMOCYSTEINE,TOTAL 7 <=13 (Fasting) MCMOL/L [facility]PT OF LAB MED AND PAT+ Comment: (NOTE) ADDITIONAL INFORMATION This test was developed and its performance characteristics determined by [facility] in a manner consistent with CLIA requirements. This test has not been cleared or approved by the U.S. Food and Drug Administration. Blood 01/29/2018 2:55 PM EST 01/29/2018 3:00 PM EST Jackie Swanson MD LAB BLOOD ORDERABLES Final R esult Performing Organization Address [facility] Co de Phone Number [facility] DPT OF LAB MED AND PAT+ [address] [place] [address] * Folate (01/29/2018 2:55 PM EST) FOLIC ACID 14.6 4.2 - 19.9 ng/mL [facility] Blood 01/29/2018 2:55 PM EST 01/29/2018 3:00 PM EST us Jackie Swanson MD LAB BLOOD ORDERABLES Final R esult [address] [address] * (ABNORMAL) Comprehensive metabolic panel (01/29/2018 2:55 PM EST) SODIUM 143 133 - 146 mmol/L [facility] POTASSIUM 3.9 3.3 - 5.1 mmol/L [facility] CHLORIDE 103 96 - 108 mmol/L [facility] CO2 28 21 - 35 mmol/L [facility] BUN 10 6 - 19 mg/dL [facility] CREATININE 0.90 0.5 - 1.5 mg/dL [facility] GLUCOSE 115(H) 70 - 99 mg/dL [facility] ALBUMIN 4.4 3.9 - 4.8 g/dL [facility] TOTAL PROTEIN 6.7 6.5 - 8.0 g/dL [facility] CALCIUM 9.1 8.4 - 10.3 mg/dL [facility] ALKALINE PHOSPHATASE 36(L) 39 - 117 U/L [facility] TOTAL BILIRUBIN 0.4 0.0 - 1.2 mg/dL [facility] AST 18 0 - 37 U/L [facility] ALT 11 0 - 40 U/L [facility] GLOBULIN 2.3 1 - 4.8 g/dL [facility] EGFR 70 >59 mL/min/1.7 3m2 [facility] Comment:If patient is black, multiply result by 1.159. Estimated glomerular filtration rate calculated using the CKD-EPI equation. ANION GAP 16 10 - 20 mmol/L [facility] Blood 01/29/2018 2:55 PM EST 01/29/2018 3:00 PM EST Jackie Swanson MD LAB BLOOD ORDERABLES Final R esult [address] [address] * (ABNORMAL) CBC (01/29/2018 2:55 PM EST) WBC 5.08 3.40 - 11.20 K/uL [facility] RBC 3.61(L) 3.80 - 4.80 M/uL [facility] HGB 11.4(L) 12.0 - 15.0 g/dL [facility] HCT 34.1(L) 36.0 - 46.0 % [facility] PLT 164 130 - 400 K/uL [facility] MCV 94.5 79.0 - 98.0 fL [facility] MCH 31.6 27.0 - 34.8 pg [facility] MCHC 33.4 31.5 - 36.0 g/dL [facility] RDW 12.1 10.8 - 14.6 % [facility] MPV 11.8 9.4 - 12.4 fl [facility] NRBC 0.00 0.00 /100 WBCs [facility] ABSOLUTE NRBC 0.00 0.00 K/uL [facility] Blood 01/29/2018 2:55 PM EST 01/29/2018 3:00 PM EST us Jackie Swanson MD LAB BLOOD ORDERABLES Final R esult Performing Organization Address City/State/[facility] Co de Phone Number [address] [address] documented in this encounter Visit Diagnoses Diagnosis Mild cognitive impairment- Primary Mild cognitive impairment, so stated Vitamin D deficiency documented in this encounter Additional Health Concerns Infection Onset Date Last Indicated Resolved Time CoV-Risk 11/19/2019 11/19/2019 11/19/2019 4:18 PM EDT CoV-Risk 04/29/2020 04/29/2020 05/09/2020 1:23 AM EST CoV-Exposed Comment:From COVIDPass 08/21/2021 08/21/2021 09/01/2021 1:24 A M EDT COVID-19 11/19/2023 11/19/2023 12/10/2023 1:21 AM EDT documented as of this encounter Care Teams Manager Print Relationship Specialty Start Date End Date Jackie Swanson MD [address] [place] [id number] [email or web address] PCP - General Internal Medicine 05/31/17 09/20/19 Klaudia Fan MD [address] [place] [address] [email or web address] PCP - General Family Medicine 09/21/19 documented as of this encounter Additional Source Comments The information contained in this document represents components of the legal health record. It is not the complete legal health record.[facility]
--- OUTSIDE RECORDS SUMMARY | 2025-01-05 18:36 | XMS_ITS | Encounter Summary ---
Author Organization [facility] Address [address] [facility] [address] [place] [address] Phone Care Team Providers Care Candy Spreader Helper Name Role Phone Klaudia Fan MD Primary Care Provider [phone] Encounter Details Date Type Department Care Team (Late st Contact Info) Description 02/15/2020 [facility]illary [facility] [address] [facility] [address] [place] [address] Klaudia Fan MD [address] [facility] [place] [address] [email or web address] Breast screening Social History Tobacco Use Types [...] Description 03/30/2025 8:40 AM EST Office Visit [facility] [address] [facility] [address] [place], [place] [phone] Klaudia Fan MD [address] [facility] [place] [address] [email or web address] documented as of this encounter Results * BI MAMMOGRAM SCREENING WITH TOMOSYNTHESIS WITH CAD (BILATERAL) (03/28/2020 7:27 AM EST) Anatomical Region Laterality Modality Breast Left, Breast Right, Breast Bilateral Bila teral Mammography 03/28/2020 7:43 AM EST Impressions 03/28/2020 7:46 AM EST No mammographic evidence of malignancy. Recommend routine annual surveillance. BI-RADS CATEGORY: 1 - Negative. DENSITY: There are scattered fibroglandular densities. Narrative 03/28/2020 7:46 AM EST 59-year-old female with no current breast symptoms. Comparison made to previous on 01/27/2019 and as far back as 04/21/2013. Interpretation made in conjunction with computer-aided detection and tomosynthesis. There are scattered areas of fibroglandular density. There are no suspicious masses, areas of architectural distortion, or suspicious clusters of microcalcifications. Procedure Note Niels Zhang MD - 03/28/2020 59-year-old female with no current breast symptoms. Comparison made toprevious on 01/27/2019 and as far back as 04/21/2013. Interpretation madein conjunction with computer-aided detection and tomosynthesis. There are scattered areas of fibroglandular density. There are no suspicious masses, areas of architectural distortion, orsuspicious clusters of microcalcifications. IMPRESSION: No mammographic evidence of malignancy. Recommend routine annualsurveillance. BI-RADS CATEGORY: 1 - Negative. DENSITY: There are scattered fibroglandular densities. Klaudia Fan MD IMG MG EXAMS Final Result documented in this encounter Visit [...] documented as of this encounter Care Teams Candy Spreader Helper Relationship Specialty Start Date End Date Klaudia Fan MD [address] [place], [place] [id number] [email or web address] PCP - General Family Medicine 09/21/19 documented as of this encounter Additional Source Comments The information contained in this document represents components of the legal health record. It is not the complete legal health record.[facility]
--- OUTSIDE RECORDS SUMMARY | 2025-01-05 18:36 | XMS_ITS | Encounter Summary ---
Author Organization [facility] Address [address] [facility] [address] [place] [address] Phone Care Team Providers Care Tongue Binder Name Role Phone Klaudia Fan MD Primary Care Provider [phone] Encounter Details Date Type Department Care Team ([facility] st Contact Info) Description 02/06/2023 Procedure Pass [place] Admitting Dept - Virtual Department [address] [place] [address] Social History Tobacco Use Types Packs/Day Years Used Date Smoking Tobacco: Former Cigarettes Q uit: 1980 Smokeless Tobacco: Never Comments:Quit in 20's Alcohol Use Standard Drinks/Week Comments Yes 2 (1 standard drink = 0.6 oz pur e alcohol) Home Health Assessment: Transportation Answer Date Recorded Lack of Transportation (Medical) No 02/07/2023 Lack of Transportation (Non-Medical) No 02/07/2023 Patient Unable or Declines to Respond No 02/07/2023 Education Answer Date Recorded Are you interested [...] Description 03/30/2025 8:40 AM EST Office Visit [facility] [address] [facility] [address] [place] [address] Klaudia Fan MD 15 [facility] [address] [place] [address] [email or web address] documented as of this encounter Visit Diagnoses Not on filedocumented in this encounter Additional Health Concerns Infection Onset Date Last Indicated Resolved Time COVID-19 11/19/2023 11/19/2023 12/10/2023 1:21 AM EDT documented as of this encounter Care Teams Tongue Binder Relationship Specialty Start Date End Date Klaudia Fan MD 15 [facility]. [address] [place] [address] [email or web address] PCP - General Family Medicine 09/21/19 documented as of this encounter Additional Source Comments The information contained in this document represents components of the legal health record. It is not the complete legal health record.[facility]
== END 2025-01-05 14:15 | disposition home or self-care (01) ==
LOC: HO.MAMMO 14:14
PROVIDERS: PCP Family Medicine; Visit Provider Family Medicine
DX: Z13.820 Encounter for screening for osteoporosis (principal); Z78.0 Asymptomatic menopausal state
CPT/HCPCS: 77080

== ENCOUNTER → 2025-01-05 14:30 | Outpatient (BNV) | payer OTHER, SELFPAY | PROVIDERS: PCP Family Medicine; Visit Provider Radiology Diagnostic Radiology | DX: E28.39 Other primary ovarian failure (principal) | CPT/HCPCS: 77080 ==

== ENCOUNTER 2025-01-29 13:48 | Outpatient (REF) | payer OTHER, SELFPAY ==
--- OUTSIDE RECORDS SUMMARY | 2025-01-28 14:00 | XMS_ITS | Encounter Summary ---
Author Organization [facility] Address [address] [place] [address] Phone Care Team Providers Care Home Health Outreach Coordinator Name Role Phone Klaudia Fan MD Primary Care Provider [phone] Reason for Visit * Reason Comments Sick Visit SV, shoulder and wri st pain, several months Encounter Details Date Type Department Care Team (Late st Contact Info) Description 01/28/2025 2:00 PM EST Office Visit [facility] [place] [facility] [address] [place] [address] Maxwell Arechiga MD [address] [facility] [address] [place] [address] [email or web address] Right arm pain (Primary Dx); Constipation, unspecified constipation type Social History Tobacco Use Types Packs/Day Years [...] high school, GED, job training, learning the Sinhala language, technical skills, or developing parenting skills)? [...] AM EDT documented as of this encounter Last Filed Vital Signs Vital Sign Reading Time Taken Comments Blood Pressure 99/57 01/28/2025 1:49 PM EST Pulse 91 01/28/2025 1:49 PM EST Temperature - - Respiratory Rate - - Oxygen Saturation 98% 01/28/2025 1:49 PM EST Inhaled Oxygen Concentration - - Weight 70.9 kg (156 lb 6.4 oz) 01/28/2025 1:49 P M EST Height - - Body Mass Index 24.5 01/17/2025 10:31 AM EST documented in this encounter Progress Notes * Maxwell Arechiga MD - 01/28/2025 2:00 PM EST Christophe Priest is a 64 y.o. female. History of Present Illness The patient is a 64-year-old female who presents for shoulder and wrist pain. In September, she experienced a significant health crisis with her partner, which led to an inability tolift her arm. She sought physical therapy, resulting in an 80% improvement, and also underwent acupuncture, which she found beneficial. However, she continues to experience some impingement. Recently, she has been experiencing swelling and pain in her wrist, which she can trace along the nerve path. She is uncertain if this is related to her new job, which she started at the end of August, or her computer setup. The pain is most severe when lifting her small dog and does not radiate up her arm. Occasionally, she wakes up at night with pain extending up her arm, and it has been affecting her writing ability. She has a history of low B12 levels and was previously advised to take D3 and B12 supplements. She reports no loss of height and maintains good bone health. She did not take the recommended glucosamine chondroitin due to confusion over product quality. She is considering starting glucosamine now, as she gives it to her dog for back issues. She underwent a hip replacement in 2002 and is aware of her degenerative joint condition. She recently underwent Mohs surgery on her ear for precancerous cells, which required antibiotic treatment. She is still recovering from the surgery. The antibiotics caused constipation, a side effect she experiences for approximately 6 months after each course of antibiotics. She has been taking probiotics and cottage cheese with active cultures to manage this. She has a sensitive stomach, particularly to sour foods. 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 HENT: Negative for changes in hearing. Eyes: Negative for unexpected vision change. Respiratory: Negative for chest tightness and shortness of breath. Cardiovascular: Negative for chest pain and leg swelling. Gastrointestinal: Negative for abdominal pain, constipation, diarrhea and nausea. Endocrine: Negative for cold intolerance and heat intolerance. Genitourinary: Negative for problems with urination. Neurological: Negative for dizziness and changes in memory. Psychiatric/Behavioral: Negative for confusion and sleep disturbance. Musculoskeletal: Positive for joint pain and myalgias. Objective Physical Exam BP 99/57 Pulse 91 Wt 70.9 kg (156 lb 6.4 oz) LMP (LMP Unknown) SpO2 98% BMI 24.50 kg/m?? Gen: NAD Neck: No tenderness noted on palpation of the neck. Asymmetry observed in shoulder musculature. Pain elicited on the right side with left Spurling's maneuver Assessment & Plan 1. Shoulder and wrist pain: - The symptoms suggest a possible underlying condition such as arthritis or disc degeneration in the cervical spine. - An x-ray of the cervical spine will be ordered to further investigate the cause of the pain. If the x-ray results indicate any abnormalities, an MRI may be considered for a more detailed assessment. - She is advised to start taking glucosamine chondroitin for arthritis. 2. Constipation: - The antibiotics taken for Mohs surgery have caused prolonged constipation. - She is advised to continue her current regimen of probiotics and cottage cheese with active cultures. - Additionally, she should start taking MiraLAX daily to help alleviate constipation. Follow-up: 03/30/2025 at 8:[address] Fan. I obtained verbal consent from the patient or their proxy to record prior to the start of this visit for purposes of producing a draft of the encounter documentation, and reviewed said draft to ensure completeness and accuracy. documented in this encounter Plan of Treatment Upcoming Encounters Date Type Department Care Team (Late st Contact Info) Description 03/30/2025 8:40 AM EST Office Visit [facility] [place] [facility] [address] [place] [address] Klaudia Fan MD [address] [facility] [address] [place] [address] [email or web address] Scheduled Orders Name Type Priority Associated Diagnoses Orde r Schedule XR Cervical Spine Imaging Routine Right arm pain Expected: 01/28/2025, Expires: 04/30/2025 documented as of this encounter Visit Diagnoses Diagnosis Right arm pain- Primary Pain in soft tissues of limb Constipation, unspecified constipation type documented in this encounter Additional Health Concerns Assessment Noted Time PHQ-2 Depression Total Score: 1 03/09/20 24 7:16 AM EST documented as of this encounter Care Teams Home Health Outreach Coordinator Relationship Specialty Start Date End Date Klaudia Fan MD [address] [address] [email or web address] PCP - General Family Medicine 09/21/19 documented as of this encounter Additional Source Comments The information contained in this document represents components of the legal health record. It is not the complete legal health record.[facility]
--- OUTSIDE RECORDS SUMMARY | 2025-01-29 14:18 | XMS_ITS | Encounter Summary ---
Author Organization [facility] Address [address] [place] [address] Phone Care Team Providers Care Business Database Analyst Name Role Phone Klaudia Fan MD Primary Care Provider [phone] Encounter Details Date Type Department Care Team (Latest Contact Info) Description 12/24/2022 Transcribe Orders [facility] Main [address] [place] [address] Klaudia Fan MD [address] [facility] [address] [place] [address] [email or web address] Abnormal laboratory test (Primary Dx) Social History [...] Description 03/30/2025 8:40 AM EST Office Visit [facility] [address] [place] [address] Klaudia Fan MD [address] [facility] [address] [place] [address] [email or web address] documented as of this encounter Results * Folate (12/31/2022 2:25 PM EDT) FOLIC ACID 13.7 4.2 - 19.9 ng/mL [facility] Blood 12/31/2022 2:25 PM EDT 12/31/2022 2:28 PM EDT us Klaudia Fan MD LAB BLOOD BKR ORDERABLES Fin al Result Performing Organization Address City/[facility] [address]/ZIP Co de Phone Number [address] [address] * Vitamin B12 (12/31/2022 2:25 PM EDT) VITAMIN B12 979 232 - 1,245 pg/mL [facility] Blood 12/31/2022 2:25 PM EDT 12/31/2022 2:28 PM EDT Klaudia Fan MD LAB BLOOD BKR ORDERABLES Fin al Result Performing Organization Address City/[facility] [address]/ZIP Co de Phone Number [address] [address] documented in this encounter Visit Diagnoses Diagnosis Abnormal laboratory test- Primary Other abnormal clinical finding documented in this encounter Additional Health Concerns Infection Onset Date Last Indicated Resolved Time COVID-19 11/19/2023 11/19/2023 12/10/2023 1:21 AM EDT documented as of this encounter Care Teams Business Database Analyst Relationship Specialty Start Date End Date Klaudia Fan MD [address] [place] [address] [email or web address] PCP - General Family Medicine 09/21/19 documented as of this encounter Additional Source Comments The information contained in this document represents components of the legal health record. It is not the complete legal health record.[facility]
--- OUTSIDE RECORDS SUMMARY | 2025-01-29 14:18 | XMS_ITS | Encounter Summary ---
Author Organization [facility] Address [address] [place] [address] Phone Care Team Providers Care Piano Accompanist Name Role Phone Klaudia Fan MD Primary Care Provider [phone] Encounter Details Date Type Department Care Team (Late st Contact Info) Description 02/15/2020 Procedure Pass [facility] - [address] [place] [address] Social History Tobacco Use Types Packs/Day Years [...] Description 03/30/2025 8:40 AM EST Office Visit [facility] [address] [facility] [address] [facility] [address] [place], [place] [phone] Klaudia Fan MD [address] [facility] [address] [place] [address] [email or web address] documented as of this encounter Visit Diagnoses Not on filedocumented in this encounter Additional Health Concerns Infection Onset Date Last Indicated Resolved Time CoV-Risk 04/29/2020 04/29/2020 05/09/2020 1:23 AM EST CoV-Exposed Comment:From COVIDPass 08/21/2021 08/21/2021 09/01/2021 1:24 A M EDT COVID-19 11/19/2023 11/19/2023 12/10/2023 1:21 AM EDT documented as of this encounter Care Teams Piano Accompanist Relationship Specialty Start Date End Date Klaudia Fan MD 15 [place] [address] [email or web address] PCP - General Family Medicine 09/21/19 documented as of this encounter Additional Source Comments The information contained in this document represents components of the legal health record. It is not the complete legal health record.[facility]
--- OUTSIDE RECORDS SUMMARY | 2025-01-29 14:18 | XMS_ITS | Encounter Summary ---
Author Organization [facility] Address [address] [place] [address] Phone Care Team Providers Care Fourth Hand Name Role Phone Klaudia Fan MD Primary Care Provider [phone] Encounter Details Date Type Department Care Team (Late st Contact Info) Description 06/15/2020 Procedure Pass [address] [place] [address] Social History Tobacco Use Types Packs/Day Years [...] Description 03/30/2025 8:40 AM EST Office Visit [facility] [address] [place], [place] [phone] Klaudia Fan MD 15 [facility] [address] [place] [address] [email or web address] documented as of this encounter Visit Diagnoses Not on filedocumented in this encounter Additional Health Concerns Infection Onset Date Last Indicated Resolved Time CoV-Exposed Comment:From COVIDPass 08/21/2021 08/21/2021 09/01/2021 1:24 A M EDT COVID-19 11/19/2023 11/19/2023 12/10/2023 1:21 AM EDT documented as of this encounter Care Teams Fourth Hand Relationship Specialty Start Date End Date Kluadia Fan MD [address] [place] [address] [email or web address] PCP - General Family Medicine 09/21/19 documented as of this encounter Additional Source Comments The information contained in this document represents components of the legal health record. It is not the complete legal health record.[facility]
--- OUTSIDE RECORDS SUMMARY | 2025-01-29 14:19 | XMS_ITS | Encounter Summary ---
Author Organization [facility] Address [address] [place] [address] [place] [address] Phone Care Team Providers Care Biological Scientist Name Role Phone Klaudia Fna MD Primary Care Provider [phone] Encounter Details Date Type Department Care Team ([facility] st Contact Info) Description 08/01/2022 Ancillary Orders [facility] [address] [place] [address] Mandy Navas MD [address] [place] [address] Orthopedics & Sports Medicine, [place] [address] [email or web address] Social History Tobacco Use Types Packs/Day Years [...] AM EST Office Visit [facility] [address] [facility] [address] [place] [address] Klaudia Fan MD 15 [facility] [address] [place] [address] documented as of this encounter Visit Diagnoses Not on filedocumented in this encounter Additional Health Concerns Infection Onset Date Last Indicated Resolved Time COVID-19 11/19/2023 11/19/2023 12/10/2023 1:21 AM EDT documented as of this encounter Care Teams Biological Scientist Relationship Specialty Start Date End Date Klaudia Fan MD [address] [facility] [address] [place] [address] PCP - General Family Medicine 09/21/19 documented as of this encounter Additional Source Comments The information contained in this document represents components of the legal health record. It is not the complete legal health record.[facility]
--- OUTSIDE RECORDS SUMMARY | 2025-01-29 14:19 | XMS_ITS | Encounter Summary ---
Author Organization [facility] Address [facility] [employer] [facility] [address] [place] [address] Phone Care Team Providers Care Restaurant And Bar Manager Name Role Phone Jackie Swanson MD Primary Care Provider + [phone] Klaudia Fan MD Primary Care Provider + [phone] Encounter Details Date Type Department Care Team (Late st Contact Info) Description 01/29/2018 Transcribe Orders [facility]le[facility] Main 30 [place] [address] Jackie Swanson MD 25 [place] [address] Mild cognitive impairment (Primary Dx); Vitamin D [...] 8:40 AM EST Office Visit [facility] [address] [place] [address] Klaudia Fan MD [address] [address] [email or web address] documented as of this encounter Results * 25-OH vitamin D (01/29/2018 2:55 PM EST) 25 OH VIT D (TOTAL) 54 30 - 60 ng/mL [facility] Blood 01/29/2018 2:55 PM EST 01/29/2018 3:00 PM EST Jackie Swanson MD LAB BLOOD BKR ORDERABLES Fin al Result [address] [address] * TSH with reflex (01/29/2018 2:55 PM EST) TSH 1.66 0.27 - 4.20 uIU/mL [facility] Blood 01/29/2018 2:55 PM EST 01/29/2018 3:00 PM EST Jackie Swanson MD LAB BLOOD BKR ORDERABLES Fin al Result Performing Organization Address City/[facility]/ZIP Co de Phone Number [address] [address] * Vitamin B12 (01/29/2018 2:55 PM EST) VITAMIN B12 830 232 - 1,245 pg/mL [facility] Blood 01/29/2018 2:55 PM EST 01/29/2018 3:00 PM EST Jackie Swanson MD LAB BLOOD BKR ORDERABLES Fin al Result Performing Organization Address [facility]/ZIP Co de Phone Number [address] [address] * Methylmalonic acid, serum (01/29/2018 2:55 PM EST) METHYLMALONIC ACID 0.13 <=0.40 nmol/mL [facility] LAB MED AND PAT+ Comment: (NOTE) ADDITIONAL INFORMATION This test was developed and its performance characteristics determined by [facility] in a manner consistent with CLIA requirements. This test has not been cleared or approved by the U.S. Food and Drug Administration. Blood 01/29/2018 2:55 PM EST 01/29/2018 3:00 PM EST us Jackie Swanson MD LAB BLOOD ORDERABLES Final R esult Performing Organization Address [facility] Co de Phone Number [facility] D[facility] OF LAB MED AND PAT+ [address] [place] [address] * Homocysteine (01/29/2018 2:55 PM EST) HOMOCYSTEINE,TOTAL 7 <=13 (Fasting) MCMOL/L [facility] LAB MED AND PAT+ Comment: (NOTE) ADDITIONAL INFORMATION This test was developed and its performance characteristics determined by [facility] in a manner consistent with CLIA requirements. This test has not been cleared or approved by the U.S. Food and Drug Administration. Blood 01/29/2018 2:55 PM EST 01/29/2018 3:00 PM EST us Jackie Swanson MD LAB BLOOD BKR ORDERABLES Fin al Result Performing Organization Address City/[facility]/ZIP Co de Phone Number [facility] LAB MED AND PAT+ [address] [place] [address] * Folate (01/29/2018 2:55 PM EST) FOLIC ACID 14.6 4.2 - 19.9 ng/mL [facility] Blood 01/29/2018 2:55 PM EST 01/29/2018 3:00 PM EST Jackie Swanson MD LAB BLOOD BKR ORDERABLES Fin al Result [address] [address] * (ABNORMAL) Comprehensive metabolic panel (01/29/2018 2:55 PM EST) SODIUM 143 133 - 146 mmol/L [facility] POTASSIUM 3.9 3.3 - 5.1 mmol/L [facility] CHLORIDE 103 96 - 108 mmol/L [facility] CO2 28 21 - 35 mmol/L [facility] BUN 10 6 - 19 mg/dL [facility] CREATININE 0.90 0.5 - 1.5 mg/dL [facility] GLUCOSE 115(H) 70 - 99 mg/dL [facility] ALBUMIN 4.4 3.9 - 4.8 g/dL [facility] TOTAL PROTEIN 6.7 6.5 - 8.0 g/dL [facility] CALCIUM 9.1 8.4 - 10.3 mg/dL [facility] ALKALINE PHOSPHATASE 36(L) 39 - 117 U/L [facility] TOTAL BILIRUBIN 0.4 0.0 - 1.2 mg/dL [facility] AST 18 0 - 37 U/L [facility] ALT 11 0 - 40 U/L [facility] GLOBULIN 2.3 1 - 4.8 g/dL [facility] EGFR 70 >59 mL/min/1.7 3m2 [facility] Comment:If patient is black, multiply result by 1.159. Estimated glomerular filtration rate calculated using the CKD-EPI equation. ANION GAP 16 10 - 20 mmol/L [facility] Blood 01/29/2018 2:55 PM EST 01/29/2018 3:00 PM EST Jackie Swanson MD LAB BLOOD BKR ORDERABLES Fin al Result Performing Organization Address City/[facility]/ZIP Co de Phone Number [address] [address] * (ABNORMAL) CBC (01/29/2018 2:55 PM EST) WBC 5.08 3.40 - 11.20 K/uL [facility] RBC 3.61(L) 3.80 - 4.80 M/uL [facility] HGB 11.4(L) 12.0 - 15.0 g/dL [facility] HCT 34.1(L) 36.0 - 46.0 % [facility] PLT 164 130 - 400 K/uL [facility] MCV 94.5 79.0 - 98.0 fL [facility] MCH 31.6 27.0 - 34.8 pg [facility] MCHC 33.4 31.5 - 36.0 g/dL [facility] RDW 12.1 10.8 - 14.6 % [facility] MPV 11.8 9.4 - 12.4 [facility] NRBC 0.00 0.00 /100 WBCs [facility] ABSOLUTE NRBC 0.00 0.00 K/uL [facility] Blood 01/29/2018 2:55 PM EST 01/29/2018 3:00 PM EST us Jackie Swanson MD LAB BLOOD BKR ORDERABLES Fin al Result Performing Organization Address City/State/[facility] Co de Phone Number [address] [address] documented in this encounter Visit Diagnoses Diagnosis [...] documented as of this encounter Care Teams Restaurant And Bar Manager Relationship Specialty Start Date End Date Jackie Swanson MD [address] [place] [address] [email or web address] PCP - General Internal Medicine 05/31/17 09/20/19 Klaudia Fan MD [address] [place] [address] [email or web address] PCP - General Family Medicine 09/21/19 documented as of this encounter Additional Source Comments The information contained in this document represents components of the legal health record. It is not the complete legal health record.[facility]
--- OUTSIDE RECORDS SUMMARY | 2025-01-29 14:19 | XMS_ITS | Encounter Summary ---
Author Organization [facility] Address [address] [facility] [facility] [address] [place] [address] Phone Care Team Providers Care Tape Controlled Machine Stitcher Name Role Phone Jackie Swanson MD Primary Care Provider + [phone] Klaudia Fan MD Primary Care Provider + [phone] Encounter Details Date Type Department Care Team (Latest Contact Info) Description 11/06/2017 Transcribe Orders [facility] Phleb Main [address] [place] [address] Saira Huffman ARNP Pre-employment health screening examination [...] 03/30/2025 8:40 AM EST Office Visit [facility] [address] [facility] [address] [place], [place] [phone] Klaudia Fan MD 15 [facility] [address] [place] [address] [email or web address] documented as of this encounter Results * T spot TB test (11/06/2017 10:34 AM EDT) T SPOT Tuberculosis Negative [facility] Blood 11/06/2017 10:3 4 AM EDT 11/06/2017 10:37 AM EDT Saira Huffman [facility] LAB BLOOD ORDERABLES Final Result [facility] [address] [place] [address] documented in this encounter Visit Diagnoses Diagnosis [...] documented as of this encounter Care Teams Tape Controlled Machine Stitcher Relationship Specialty Start Date End Date Jackie Swanson MD [address] [place] [address] PCP - General Internal Medicine 05/31/17 09/20/19 Klaudia Fan MD [address] [place] [address] PCP - General Family Medicine 09/21/19 documented as of this encounter Additional Source Comments The information contained in this document represents components of the legal health record. It is not the complete legal health record.[facility]
--- OUTSIDE RECORDS SUMMARY | 2025-01-29 14:19 | XMS_ITS | Encounter Summary ---
Author Organization [facility] Address [address] [place] [address] [place] [address] Phone Care Team Providers Care Compensation Agent Name Role Phone Jackie Swanson MD Primary Care Provider + [phone] Klaudia Fan MD Primary Care Provider + [phone] Reason for Referral * MRI/CAT Scan - Closed Specialty Diagnoses / Procedures Referred By Contamilcar t Referred To Contact Radiology Diagnoses Sacrococcygeal disorders, not elsewhere classified Procedures MRI Pelvis (Bone) Jackie Swanson MD Phone: tel: [email or web address] Referral ID Status Reason Start Date Expiration Date Visits Re quested Visits Authorized [id number] Closed 07/09/2017 09/06/2017 1 1 Encounter Details Date Type Department Care Team (Latest Contact Info) Description 07/11/2017 Ancillary Orders Virtual Department 30 [place] [address] Jackie Swanson MD 25 [place] [address] [email or web address] Sacrococcygeal disorders, not elsewhere classified Social History [...] AM EST Office Visit [facility] [place] [facility] [address] [facility] [address] [place] [address] Klaudia Fan MD 15 [facility] [address] [place] [address] [email or web address] documented as of this encounter Results * MRI PELVIS (BONY FOCUS) WITHOUT CONTRAST (07/29/2017 9:43 AM EDT) Anatomical Region Laterality Modality Pelvis Magnetic Resonan ce 07/29/2017 10:0 1 AM EDT Impressions 07/29/2017 10:11 AM EDT No fractures or dislocations. POS [id number] Narrative 07/29/2017 10:11 AM EDT EXAM: MRI [...] unremarkable. IMPRESSION: No fractures or dislocations. POS [id number] Jackie Swanson MD IMG MR PELVIS Final [...] documented as of this encounter Care Teams Compensation Agent Relationship Specialty Start Date End Date Jackie Swanson MD [address] [place] [address] PCP - General Internal Medicine 05/31/17 09/20/19 Klaudia Fan MD [address] [place] [address] PCP - General Family Medicine 09/21/19 documented as of this encounter Additional Source Comments The information contained in this document represents components of the legal health record. It is not the complete legal health record.[facility]
--- OUTSIDE RECORDS SUMMARY | 2025-01-29 14:19 | XMS_ITS | Encounter Summary ---
Author Organization [facility] Address [address] [facility] [address] [place] [address] Phone Care Team Providers Care Property Assessment Monitor Name Role Phone Jackie Swanson MD Primary Care Provider + [phone] Klaudia Fan MD Primary Care Provider + [phone] Encounter Details Date Type Department Care Team (Late st Contact Info) Description 06/22/2017 Ancillary Orders [facility] [place], X-Ray - [address] [place] [address] Jackie Swanson MD [address] [place] [address] [email or web address] Pain Social History Tobacco Use Types Packs/Day [...] Description 03/30/2025 8:40 AM EST Office Visit [facility] Care [address] [facility] [address] [place] [address] Klaudia Fan MD 15 [facility] [address] [place] [address] [email or web address] documented as of this encounter Results * XR Sacrum and Coccyx (06/22/2017 4:05 PM EDT) Anatomical Region Laterality Modality L-spine Radiographic Kylee ging 06/23/2017 10:2 1 AM EDT Impressions 06/23/2017 10:23 AM EDT Very equivocal fracture deformity of the proximal coccyx which may represent a subtle change from 2011. No other post-traumatic bony abnormality suggested. POS [id number] Narrative 06/23/2017 10:23 AM EDT COMPARISON: 06/10/2011 [...] 2011. No other post-traumatic bonyabnormality suggested. POS [id number] Jackie Swanson MD IMG XR SPINE Final [...] documented as of this encounter Care Teams Property Assessment Monitor Relationship Specialty Start Date End Date Jackie Swanson MD [address] [place] [address] 1 [place] [address] [email or web address] PCP - General Internal Medicine 05/31/17 09/20/19 Klaudia Fan MD [address] [place] [address] [email or web address] PCP - General Family Medicine 09/21/19 documented as of this encounter Additional Source Comments The information contained in this document represents components of the legal health record. It is not the complete legal health record.[facility]
--- OUTSIDE RECORDS SUMMARY | 2025-01-29 14:19 | XMS_ITS | Encounter Summary ---
Author Organization [facility] Address [address] [facility] [address] [place] [address] Phone Care Team Providers Care Fermenter Champagne Name Role Phone Jackie Swanson MD Primary Care Provider + [phone] Klaudia Fan MD Primary Care Provider + [phone] Encounter Details Date Type Department Care Team (Late st Contact Info) Description 07/11/2017 Procedure Pass [address] [place] [address] Social History Tobacco Use Types Packs/Day Years [...] Description 03/30/2025 8:40 AM EST Office Visit [facility] [place] Primary Care 15 [facility] [address] [place] [address] Klaudia Fan MD 15 [facility] [address] [place] [address] [email or web address] documented [...] documented as of this encounter Care Teams Fermenter Champagne Relationship Specialty Start Date End Date Jackie Swanson MD [address] [place] [address] [email or web address] PCP - General Internal Medicine 05/31/17 09/20/19 Klaudia Fan MD [address] [place] [address] PCP - General Family Medicine 09/21/19 documented as of this encounter Additional Source Comments The information contained in this document represents components of the legal health record. It is not the complete legal health record.[facility]
--- OUTSIDE RECORDS SUMMARY | 2025-01-29 14:19 | XMS_ITS | Encounter Summary ---
Author Organization [facility] Address [address] [facility] [address] [place] [address] Phone Care Team Providers Care Steeple Jack Name Role Phone Jackie Swanson MD Primary Care Provider + [phone] Klaudia Fan MD Primary Care Provider + [phone] Encounter Details Date Type Department Care Team (Late st Contact Info) Description 05/31/2017 Transcribe Orders [address] [place] [address] Jackie Swanson MD [address] [place] [address] [email or web address] Anemia, unspecified type (Primary Dx); Vitamin [...] Description 03/30/2025 8:40 AM EST Office Visit [facility] [place] Primary Care [address] [facility] [address] [place] [address] Klaudia Fan MD 15 [facility] [address] [place] [address] [email or web address] documented as of this encounter Results * 25-OH vitamin D (05/31/2017 7:52 AM EDT) Pathologist [facility] 25 OH VIT D (TOTAL) 50 30 - 1,000 ng/mL [facility] Blood 05/31/2017 7:52 AM EDT 05/31/2017 7:56 AM EDT Jackie Swanson MD LAB BLOOD BKR ORDERABLES Fin al Result [address] [address] * TSH (05/31/2017 7:52 AM EDT) [facility] TSH 2.11 0.27 - 4.20 uIU/mL [facility] Blood 05/31/2017 7:52 AM EDT 05/31/2017 7:56 AM EDT Jackie Swanson MD LAB BLOOD BKR ORDERABLES Fin al Result Performing Organization Address [place] [facility]/ZIP Co de Phone Number [address] [address] * CBC and differential (05/31/2017 7:52 AM EDT) [facility] WBC 4.17 3.40 - 11.20 K/uL [facility] RBC 3.83 3.80 - 4.80 M/uL [facility] HGB 12.1 12.0 - 15.0 g/dL [facility] HCT 36.3 36.0 - 46.0 % [facility] PLT 158 130 - 400 K/uL [facility] MCV 94.8 79.0 - 98.0 fL [facility] MCH 31.6 27.0 - 34.8 pg [facility] MCHC 33.3 31.5 - 36.0 g/dL [facility] RDW 12.2 10.8 - 14.6 % [facility] MPV 11.7 9.4 - 12.4 fl [facility] NRBC 0.00 /100 WBCs [facility] ABSOLUTE NRBC 0.00 K/uL [facility] DIFF METHOD Auto [facility] NEUTS 63.0 45.30 - 77.70 % [facility] LYMPHS 26.1 12.30 - 39.70 % [facility] MONOS 9.1 4.10 - 12.80 % [facility] EOS 1.4 0 - 7.2 % [facility] BASOS 0.2 0 - 2.80 % [facility] Granulocytes, immature (%) 0.2 0.0 - 0.9 % [facility] ABSOLUTE NEUTS 2.62 1.40 - 7.70 K/uL [facility] ABSOLUTE LYMPHS 1.09 0.60 - 3.20 K/uL [facility] ABSOLUTE MONOS 0.38 0.11 - 0.59 K/uL [facility] ABSOLUTE EOS 0.06 0.01 - 0.50 K/uL [facility] ABSOLUTE BASOS 0.01 0.00 - 0.08 K/uL [facility] Granulocytes, immature 0.01 0.00 - 0.05 K/uL [facility] Blood 05/31/2017 7:52 AM EDT 05/31/2017 7:56 AM EDT us Jackie Swanson MD LAB BLOOD BKR ORDERABLES Fin al Result Performing Organization Address City/State/[facility] Co de Phone Number [address] [address] * (ABNORMAL) Comprehensive metabolic panel (05/31/2017 7:52 AM EDT) SODIUM 137 133 - 146 mmol/L [facility] POTASSIUM 4.2 3.3 - 5.1 mmol/L [facility] CHLORIDE 101 96 - 108 mmol/L [facility] CO2 26 21 - 35 mmol/L [facility] BUN 14 6 - 19 mg/dL [facility] CREATININE 0.90 0.5 - 1.5 mg/dL [facility] GLUCOSE 96 70 - 99 mg/dL [facility] ALBUMIN 4.1 3.9 - 4.8 g/dL [facility] TOTAL PROTEIN 6.9 6.5 - 8.0 g/dL [facility] CALCIUM 8.9 8.4 - 10.3 mg/dL [facility] ALKALINE PHOSPHATASE 37(L) 39 - 117 U/L [facility] TOTAL BILIRUBIN 0.6 0.0 - 1.2 mg/dL [facility] AST 19 0 - 37 U/L [facility] ALT 11 0 - 40 U/L [facility] GLOBULIN 2.8 1 - 4.8 g/dL [facility] EGFR 71 >59 mL/min/1.7 3m2 [facility] Comment:If patient is black, multiply result by 1.159. The eGFR calculation has changed from the MDRD equation to the CKD-EPI equation as of May 14, 2017. ANION GAP 14 10 - 20 mmol/L [facility] Blood 05/31/2017 7:52 AM EDT 05/31/2017 7:56 AM EDT us Jackie Swanson MD LAB BLOOD BKR ORDERABLES Fin al Result [facility] [address] [place] [address] documented in this encounter Visit Diagnoses Diagnosis [...] documented as of this encounter Care Teams Steeple Jack Relationship Specialty Start Date End Date Jackie Swanson MD [address] [place] [address] PCP - General Internal Medicine 05/31/17 09/20/19 Klaudia Fan MD [address] [place] [address] [email or web address] PCP - General Family Medicine 09/21/19 documented as of this encounter Additional Source Comments The information contained in this document represents components of the legal health record. It is not the complete legal health record.[facility]
--- OUTSIDE RECORDS SUMMARY | 2025-01-29 14:19 | XMS_ITS | Encounter Summary ---
Author Organization [facility] Address [address] [place] [address] [address] [place] [address] Phone Care Team Providers Care Chair Frame Builder Name Role Phone Jackie wSanson MD Primary Care Provider + [phone] Klaudia Fan MD Primary Care Provider + [phone] Encounter Details Date Type Department Care Team (Late st Contact Info) Description 01/31/2018 Ancillary Orders [facility], X-Ray - [address] [address] Jackie Swanson MD [address] [place] [address] Pain in left hip Social History Tobacco [...] Description 03/30/2025 8:40 AM EST Office Visit [facility] [address] [facility] [address] [place] [address] Klaudia Fan MD 15 [facility] [address] [place] [address] [email or web address] documented as of this encounter Results * [...] 2011. No acute bony changes. POS [id number] us Jackie Swanson MD IMG XR PELVIS Final [...] documented as of this encounter Care Teams Chair Frame Builder Relationship Specialty Start Date End Date Jackie Swanson MD [address] [place] [address] PCP - General Internal Medicine 05/31/17 09/20/19 Klaudia Fan MD [address] [place] [address] PCP - General Family Medicine 09/21/19 documented as of this encounter Additional Source Comments The information contained in this document represents components of the legal health record. It is not the complete legal health record.[facility]
--- OUTSIDE RECORDS SUMMARY | 2025-01-29 14:19 | XMS_ITS | Encounter Summary ---
Author Organization [facility] Address [address] [facility] [address] [place] [address] Phone Care Team Providers Care Beef Skinner Name Role Phone Klaudia Fan MD Primary Care Provider [phone] Encounter Details Date Type Department Care Team ([facility] st Contact Info) Description 07/26/2023 Procedure Pass [facility] Endoscopy Admitting Dept Virtual Department 30 [place] [address] Social History Tobacco Use Types Packs/Day Years [...] Description 03/30/2025 8:40 AM EST Office Visit [facility] Primary Care [address] [facility] [address] [place] [address] Klaudia Fan MD 15 [facility]. [address] [place] [address] [email or web address] documented as of this encounter Visit Diagnoses Not on filedocumented in this encounter Additional Health Concerns Infection Onset Date Last Indicated Resolved Time COVID-19 11/19/2023 11/19/2023 12/10/2023 1:21 AM EDT documented as of this encounter Care Teams Beef Skinner Relationship Specialty Start Date End Date Klaudia Fan MD 15 [facility] [address] [place] [address] [email or web address] PCP - General Family Medicine 09/21/19 documented as of this encounter Additional Source Comments The information contained in this document represents components of the legal health record. It is not the complete legal health record.[facility]
--- OUTSIDE RECORDS SUMMARY | 2025-01-29 14:19 | XMS_ITS | Encounter Summary ---
Author Organization [facility] Address [address] [facility] [address] [place] [address] Phone Care Team Providers Care Book Cutter Name Role Phone Klaudia Fan MD Primary Care Provider [phone] Encounter Details Date Type Department Care Team (Late st Contact Info) Description 01/05/[address] [facility] [place] [facility] 15 [facility] [address] [place] [address] Klaudia Fan MD 15 [facility] [address] [place] [address] [email or web address] Routine medical exam Social History Tobacco Use [...] high school, GED, job training, learning the Khmer language, technical skills, or developing parenting skills)? [...] Description 03/30/2025 8:40 AM EST Office [facility] [place] [facility] [address] [facility] [address] [place] [address] Klaudia Fan MD 15 [facility] [address] [place] [address] [email or web address] documented as of this encounter Procedures Procedure [...] documented as of this encounter Care Teams Book Cutter Relationship Specialty Start Date End Date Klaudia Fan MD 15 [facility] 201 [place] [address] PCP - General Family Medicine 09/21/19 documented as of this encounter Additional Source Comments The information contained in this document represents components of the legal health record. It is not the complete legal health record.[facility]
--- OUTSIDE RECORDS SUMMARY | 2025-01-29 14:19 | XMS_ITS | Encounter Summary ---
Author Organization [email or web address] [facility] Address [address] [place] [address] Phone Care Team Providers Care Live Ammunition Inspector Name Role Phone Klaudia Fan MD Primary Care Provider [phone] Encounter Details Date Type Department Care Team (Late st Contact Info) Description 03/09/2024 Procedure Pass [facility] [address] [place] [address] Social History Tobacco Use Types Packs/Day Years [...] high school, GED, job training, learning the Samoan language, technical skills, or developing parenting skills)? [...] your housing situation today? I have mitul rceinos 03/09/2024 How many times have you move [...] 8:40 AM EST Office Visit [facility] Primary Care [address] [facility] [address] [place] [address] Klaudia Fan MD [address] [address] [email or web address] documented as of this encounter Visit Diagnoses Not on filedocumented in this encounter Additional Health Concerns Assessment Noted Time PHQ-2 Depression Total Score: 1 03/09/20 24 7:16 AM EST documented as of this encounter Care Teams Live Ammunition Inspector Relationship Specialty Start Date End Date Klaudia Fan MD [address] [address] [email or web address] PCP - General Family Medicine 09/21/19 documented as of this encounter Additional Source Comments The information contained in this document represents components of the legal health record. It is not the complete legal health record.[facility]
--- OUTSIDE RECORDS SUMMARY | 2025-01-29 14:19 | XMS_ITS | Encounter Summary ---
Author Organization [facility] Address [address] [facility] [address] [place] [address] Phone Care Team Providers Care Director Supplier Quality Name Role Phone Klaudia Fan MD Primary Care Provider [phone] Encounter Details Date Type Department Care Team (Late st Contact Info) Description 06/01/2022 Ancillary Orders [facility] [place] [facility] [address] [facility] [address] [place] [address] Klaudia Fan MD 15 [facility] [address] [place] [address] [email or web address] Chronic pain of both hips Social History [...] Description 03/30/2025 8:40 AM EST Office Visit [facility] [place] [facility] [address] [place] [address] Klaudia Fan MD [address] [address] [email or web address] documented as of this encounter Results * [...] documented as of this encounter Care Teams Director Supplier Quality Relationship Specialty Start Date End Date Klaudia Fan MD [address] [place] [address] [email or web address] PCP - General Family Medicine 09/21/19 documented as of this encounter Additional Source Comments The information contained in this document represents components of the legal health record. It is not the complete legal health record.[facility]
--- OUTSIDE RECORDS SUMMARY | 2025-01-29 14:20 | XMS_ITS | Encounter Summary ---
Author Organization [facility] Address [address] [facility] [address] [place] [address] Phone Care Team Providers Care Line Department Supervisor Name Role Phone Jackie Swanson MD Primary Care Provider + [phone] Klaudia Fan MD Primary Care Provider + [phone] Encounter Details Date Type Department Care Team (Late st Contact Info) Description 12/12/2018 Ancillary Orders [facility] 10 [place], [place] [phone] Isabel Lozada MD [address] [facility], [address] [place], [place] [id number] [email or web address] Social History Tobacco Use Types Packs/Day Years [...] EST Office Visit [facility] [place] [facility] 15 [facility] [address] [place] [address] Klaudia Fan MD [address] [address] [email or web address] documented as of this encounter Visit Diagnoses Not on filedocumented in this encounter Additional Health Concerns Infection Onset Date Last Indicated Resolved Time CoV-Risk 11/19/2019 11/19/2019 11/19/2019 4:18 PM EDT CoV-Risk 04/29/2020 04/29/2020 05/09/2020 1:23 AM EST CoV-Exposed Comment:From [employer] 08/21/2021 08/21/2021 09/01/2021 1:24 A M EDT COVID-19 11/19/2023 11/19/2023 12/10/2023 1:21 AM EDT documented as of this encounter Care Teams Line Department Supervisor Relationship Specialty Start Date End Date Jackie Swanson MD [address] [place] [address] PCP - General Internal Medicine 05/31/17 09/20/19 Klaudia Fan MD [address] [place] [address] PCP - General Family Medicine 09/21/19 documented as of this encounter Additional Source Comments The information contained in this document represents components of the legal health record. It is not the complete legal health record.[facility]
--- OUTSIDE RECORDS SUMMARY | 2025-01-29 14:20 | XMS_ITS | Encounter Summary ---
Author Organization [facility] Address [address] [place] [address] [address] [place] [address] Phone Care Team Providers Care Psychiatric Therapist Name Role Phone Jackie Swanson MD Primary Care Provider + [phone] Klaudia Fan MD Primary Care Provider + [phone] Encounter Details Date Type Department Care Team (Late st Contact Info) Description 10/23/2018 Ancillary Orders Virtual Department 30 [place] [address] Jackie Swanson MD 25 [place] [address] Chronic low back pain without sciatica, unspecified [...] 03/30/2025 8:40 AM EST Office Visit [facility] Primary Care [address] [facility] [address] [place] [address] Klaudia Fan MD 15 [facility] [address] [place] [address] [email or web address] documented as of this encounter Results * [...] documented as of this encounter Care Teams Psychiatric Therapist Relationship Specialty Start Date End Date Jackie Swanson MD [address] [place] [address] PCP - General Internal Medicine 05/31/17 09/20/19 Klaudia Fan MD [address] [place] [address] PCP - General Family Medicine 09/21/19 documented as of this encounter Additional Source Comments The information contained in this document represents components of the legal health record. It is not the complete legal health record.[facility]
--- OUTSIDE RECORDS SUMMARY | 2025-01-29 14:20 | XMS_ITS | Encounter Summary ---
Author Organization [facility] Address [address] [place] [address] [place] [address] Phone Care Team Providers Care Lease Broker Name Role Phone Klaudia Fan MD Primary Care Provider [phone] Encounter Details Date Type Department Care Team ([facility] st Contact Info) Description 08/01/2022 Ancillary Orders [address] [address] Mandy Navas MD [address] [place] [address] Orthoped[facility] Sports Medicine, [place] [address] [email or web address] Left hip pain Social History Tobacco Use [...] Description 03/30/2025 8:40 AM EST Office Visit [facility] 15 [facility] [address] [place] [address] Klaudia Fan MD 15 [facility] [address] [place] [address] Pending Results Name Type Priority Associated Diagnoses [...] documented as of this encounter Care Teams Lease Broker Relationship Specialty Start Date End Date Klaudia Fan MD 15 [facility] [address] [place] [address] PCP - General Family Medicine 09/21/19 documented as of this encounter Additional Source Comments The information contained in this document represents components of the legal health record. It is not the complete legal health record.[facility]
--- OUTSIDE RECORDS SUMMARY | 2025-01-29 14:20 | XMS_ITS | Encounter Summary ---
Author Organization [facility] Address [address] [place] [address] Phone Care Team Providers Care Service Clerk Name Role Phone Jackie Swanson MD Primary Care Provider + [phone] Klaudia Fan MD Primary Care Provider + [phone] Encounter Details Date Type Department Care Team (Late st Contact Info) Description 03/28/2018 Procedure Pass [facility] Endoscopy Admitting Dept Virtual Department [address] [place] [address] Social History Tobacco Use Types Packs/Day Years [...] Description 03/30/2025 8:40 AM EST [facility] [place] [facility] [address] [facility] [address] [place] [address] Klaudia Fan MD [address] [facility] [address] [place] [address] documented as of this encounter Visit Diagnoses Not on filedocumented in this encounter Additional Health Concerns Infection Onset Date Last Indicated Resolved Time CoV-Risk 11/19/2019 11/19/2019 11/19/2019 4:18 PM EDT CoV-Risk 04/29/2020 04/29/2020 05/09/2020 1:23 AM EST CoV-Exposed Comment:From COVIDPass 08/21/2021 08/21/2021 09/01/2021 1:24 A M EDT COVID-19 11/19/2023 11/19/2023 12/10/2023 1:21 AM EDT documented as of this encounter Care Teams Service Clerk Relationship Specialty Start Date End Date Jackie Swanson MD [address] [place] [phone] PCP - General Internal Medicine 05/31/17 09/20/19 Klaudia Fan MD [address] [place] [phone] PCP - General Family Medicine 09/21/19 documented as of this encounter Additional Source Comments The information contained in this document represents components of the legal health record. It is not the complete legal health record.[facility]
--- OUTSIDE RECORDS SUMMARY | 2025-01-29 14:20 | XMS_ITS | Encounter Summary ---
Author Organization [facility] Address [address] [place] [address] Phone Care Team Providers Care Living Manager Name Role Phone Klaudia Fan MD Primary Care Provider [phone] Encounter Details Date Type Department Care Team (Late st Contact Info) Description 02/15/2020 Ancillary Orders [facility] Primary [facility] [address] [facility] [address] [place] [address] Klaudia Fan MD [address] [place] [address] [address] [place] [address] [email or web address] Breast screening Social History Tobacco Use Types [...] Description 03/30/2025 8:40 AM EST Office Visit [facility] [address] [place] [address] Klaudia Fan MD [address] [place] [address] [email or web address] documented as of this encounter Results * [...] documented as of this encounter Care Teams Living Manager Relationship Specialty Start Date End Date Klaudia Fan MD [address] [address] [email or web address] PCP - General Family Medicine 09/21/19 documented as of this encounter Additional Source Comments The information contained in this document represents components of the legal health record. It is not the complete legal health record.[facility]
--- OUTSIDE RECORDS SUMMARY | 2025-01-29 14:20 | XMS_ITS | Encounter Summary ---
Author Organization [facility] Address [address] [place] [address] Phone Care Team Providers Care Weapons And Tactics Instructor Name Role Phone Klaudia Fan MD Primary Care Provider [phone] Encounter Details Date Type Department Care Team (Late st Contact Info) Description 04/27/2021 Procedure Pass [facility] - [address] [place] [address] Social History Tobacco Use Types Packs/Day Years [...] Description 03/30/2025 8:40 AM EST Office Visit [facility] Primary [facility] [address] [place] [address] Klaudia Fan MD [address] [facility] [address] [place] [address] [email or web address] documented as of this encounter Visit Diagnoses Not on filedocumented in this encounter Additional Health Concerns Infection Onset Date Last Indicated Resolved Time CoV-Exposed Comment:From COVIDPass 08/21/2021 08/21/2021 09/01/2021 1:24 A M EDT COVID-19 11/19/2023 11/19/2023 12/10/2023 1:21 AM EDT documented as of this encounter Care Teams Weapons And Tactics Instructor Relationship Specialty Start Date End Date Klaudia Fan MD [address] [place] [address] [email or web address] PCP - General Family Medicine 09/21/19 documented as of this encounter Additional Source Comments The information contained in this document represents components of the legal health record. It is not the complete legal health record.[facility]
--- OUTSIDE RECORDS SUMMARY | 2025-01-29 14:20 | XMS_ITS | Encounter Summary ---
Author Organization [facility] Address [address] [place] [address] [place] [address] Phone Care Team Providers Care Concrete Float Maker Name Role Phone Jackie Swanson MD Primary Care Provider + [phone] Klaudia Fan MD Primary Care Provider + [phone] Reason for Referral * Physical Therapy (Elective) - Closed Specialty Diagnoses / Procedures Referred By Sid gallardo Referred To Contact Physical Therapy Diagnoses Encounter for rehabilitation Low Back Pain Procedures Evaluate & Treat Jackie Swanson MD Phone: tel: [email or web address] [address] [place] [address] Phone: tel: Referral ID Status Reason Start Date Expiration Date Visits Re quested Visits Authorized [id number] Closed 03/09/2019 03/10/2020 50 50 Encounter Details Date Type Department Care Team (Latest Contact Info) Description 03/02/2019 Transcribe Orders [facility] [address] [place] [address] Jackie Swanson MD [address] [place] [address] [email or web address] Encounter for rehabilitation (Primary Dx) Social History [...] Description 03/30/2025 8:40 AM EST Office Visit [facility] [address] [facility] [address] [place] [address] Klaudia Fan MD [address] [facility] [address] [place] [address] [email or web address] documented as of this encounter Procedures Procedure Name Priority Date/Time Associated Diagnosis Comments AMB REFERRAL TO [facility] PHYSICAL THERAPY Routine 03/09/2019 11:14 AM EST Encounter for rehabilitation documented in this encounter Results * Ambulatory referral to [facility] Physical Therapy (03/09/2019 11:14 AM EST) us Jackie Swanson MD AMB [facility] REFERRALS Final Resu lt documented in this [...] documented as of this encounter Care Teams Concrete Float Maker Relationship Specialty Start Date End Date Jackie Swanson MD [address] [place] [address] 1 [place] [address] [email or web address] PCP - General Internal Medicine 05/31/17 09/20/19 Klaudia Fan MD [address] [address] [email or web address] PCP - General Family Medicine 09/21/19 documented as of this encounter Additional Source Comments The information contained in this document represents components of the legal health record. It is not the complete legal health record.[facility]
--- OUTSIDE RECORDS SUMMARY | 2025-01-29 14:20 | XMS_ITS | Encounter Summary ---
Author Organization [facility] Address [address] [facility] [address] [place] [address] Phone Care Team Providers Care Property And Supply Officer Name Role Phone Jackie Swanson MD Primary Care Provider + [phone] Klaudia Fan MD Primary Care Provider + [phone] Encounter Details Date Type Department Care Team (Late st Contact Info) Description 12/12/2018 Ancillary Orders Virtual Department 30 [place] [address] Isabel Lozada MD [address] [place] [address] [email or web address] Breast screening Social History Tobacco Use Types [...] 03/30/2025 8:40 AM EST Office Visit [facility] [place] [facility] [address] [facility] [address] [place], [place] [id number] Klaudia Fan MD [address] [facility] [place] [address] [email or web address] documented as of this encounter Results * [...] and compared with multiple prior studies, most emrtublq43/16/2018, with utilization of computer-aided detection. The breasts are composed of scattered fibroglandular densities. Thestromal markings are essentially unchanged in overall appearance anddistribution. No dominant spiculated mass, suspicious clusteredmicrocalcifications, or focal zone of pathologic skin thickening orretraction are noted to have arisen in the interim. IMPRESSION: No mammographic evidence of malignancy. DENSITY: POS - CDHMAMA Isabel Lozada MD IMG MG EXAMS Edited [...] as of this encounter Care Teams Property And Supply Officer Relationship Specialty Start Date End Date Jackie Swanson MD [address] [place] [id number] PCP - General Internal Medicine 05/31/17 09/20/19 Klaudia Fan MD [address] [place] [address] PCP - General Family Medicine 09/21/19 documented as of this encounter Additional Source Comments The information contained in this document represents components of the legal health record. It is not the complete legal health record.[facility]
--- OUTSIDE RECORDS SUMMARY | 2025-01-29 14:20 | XMS_ITS | Encounter Summary ---
Author Organization [facility] Address [address] [place] [address] [place] [address] Phone Care Team Providers Care Customer Records Division Supervisor Name Role Phone Klaudia Fan MD Primary Care Provider [phone] Encounter Details Date Type Department Care Team ([facility] st Contact Info) Description 02/06/2023 Procedure Pass [place] Admitting Dept - Virtual Department [address] [place] [address] Social History Tobacco Use Types Packs/Day Years [...] Description 03/30/2025 8:40 AM EST Office Visit [facility] Primary Care [address] [facility] [address] [place] [address] Klaudia Fan MD 15 [facility] [address] [place] [address] documented as of this encounter Visit Diagnoses Not on filedocumented in this encounter Additional Health Concerns Infection Onset Date Last Indicated Resolved Time COVID-19 11/19/2023 11/19/2023 12/10/2023 1:21 AM EDT documented as of this encounter Care Teams Customer Records Division Supervisor Relationship Specialty Start Date End Date Klaudia Fan MD [address] [facility] [address] [place] [address] PCP - General Family Medicine 09/21/19 documented as of this encounter Additional Source Comments The information contained in this document represents components of the legal health record. It is not the complete legal health record.[facility]
--- OUTSIDE RECORDS SUMMARY | 2025-01-29 14:20 | XMS_ITS | Encounter Summary ---
Author Organization [facility] Address [address] [place] [address] [place] [address] Phone Care Team Providers Care Needle Straightener Name Role Phone Klaudia Fan MD Primary Care Provider [phone] Reason for Visit * Reason Onset Date Comments Sleep Study 10/10/2022 Encounter Details Date Type Department Care Team (Late st Contact Info) Description 10/10/2022 Telephone [facility] Pulmonary, Allergy and Critical Care Medicine [address] [place] [address] [place] [address] Bree Calle [place] [email or web address] Social History Tobacco Use Types [...] Description 03/30/2025 8:40 AM EST Office Visit [facility] Primary Care [address] [facility] [address] [place] [address] Klaudia Fan MD 15 [facility] [address] [place] [address] [email or web address] documented as of this encounter Visit Diagnoses Not on filedocumented in this encounter Additional Health Concerns Infection Onset Date Last Indicated Resolved Time COVID-19 11/19/2023 11/19/2023 12/10/2023 1:21 AM EDT documented as of this encounter Care Teams Needle Straightener Relationship Specialty Start Date End Date Klaudia Fan MD 15 [facility] [address] [place] [address] [email or web address] PCP - General Family Medicine 09/21/19 documented as of this encounter Additional Source Comments The information contained in this document represents components of the legal health record. It is not the complete legal health record.[facility]
--- OUTSIDE RECORDS SUMMARY | 2025-01-29 14:20 | XMS_ITS | Clinical Summary ---
Author Organization [facility] Address [address] [place] [address] Phone Care Team Providers Care Cleaning Crew Member Name Role Phone Klaudia Fan MD Primary Care Provider Allergies Active Allergy Reactions Criticality Noted Date Comments Hydrocodone Swelling 03/19/2023 Throat & mouth swelling Hydrocodone-Acetaminophen Swelling 07/12/2024 Lemon 07/12/2024 [place] 07/12/2024 [place] [facility] Upset Medium 03/20/2018 Vomiting.allergy to pat and limes, all citrus Medications cholecalciferol (VITAMIN D3) 25 MCG (1,000 unit) tablet Take 1,000 Units by mouth daily. Active cyanocobalamin, vitamin B-12, 100 MCG tablet Take 100 mcg by mouth daily. Active amoxicillin (AMOXIL) 500 MG capsule Take 500 mg by mouth. 5 01/29/20 25 Discontinue d(No longer taking) fluorouraciL (EFUDEX) 5 % cream 5 01/29/20 25 Discontinue d(No longer taking) benzocaine-ment hoL (CEPACOL SORE THROAT) 15-2.6 mg Lozg Use as directed 1 lozenge in the mouth or throat 3 (three) times a day as needed (Dissolve in mouth 3 times a day as needed for throat pain). 21 lozenge 5 01/29/20 25 Active Problems Problem Noted Date Diagnosed Date Basal cell carcinoma (BCC) of skin of ear 2024 Raynaud phenomenon without gangrene 03/10/2024 Assessment & [...] MRI. History of total hip replacement, left Assessment & Plan (03/10/2024 1:36 PM EST): [...] screens: Positive and considering reaching out to [facility] IPV screen in women of reproductive age [...] can consider for 40-49: up to date, FINAL ASSEMBLY WORKER Orders these Glucose/diabetes screening for people 40 - 70 with BMI >25: N/A Aspirin for primary prevention for adults 50-59 with risk >10%, and can consider for 60-69: Depends on lipids Colonoscopy for adults 50-75, and can consider at older ages: Not due until 03/2023 Hepatitis C screening for adults born between 8910-9114: Ordered History of GI bleed 09/21/2019 Assessment [...] coronary syndromes including unstable or severe angina, RI within 1 month, severe CHF, high grade [...] coconut oil) to be applied after shower/bathing. Sitz baths PRN. Short interval follow up to [...] & Plan (12/04/2017 8:42 AM EDT): Reviewed [facility]I data: increased risk of breast cancer after [...] PT, 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 terminal computer operator use of lidocaine, not to exceed package directions for dose, is safe. F/u after PT is completed for re-eval. Encounters Date Type Department Care Team Description 01/28/2025 2:00 PM EST Office Visit [facility] [address] [place] [address] Maxwell Arechiga MD Right arm pain (Primary Dx); Constipation, unspecified constipation type 01/18/2025 Telephone [facility] [address] [place] [address] Klaudia Fan MD Triage (Green - Shoulder Pain + Wrist Pain) 01/17/2025 9:30 AM EST Office Visit [facility] at [address] [place] [address] Dillan Sutton PA-C Acute pharyngitis, unspecified etiology (Primary Dx) 01/05/2025 Orders Only [facility] [address] [place] [address] Klaudia Fan MD Routine medical exam 01/04/2025 Telephone [facility] [address] [place] [address] Elizabeth Petty Imaging order from Last 3 [...] high school, GED, job training, learning the Czech language, technical skills, or developing parenting skills)? [...] Pulse 91 01/28/2025 1:49 PM EST Temperature 36.7 C (98 F) 01/17/2025 10:31 AM EST Respiratory Rate 20 01/17/2025 10:31 AM EST Oxygen Saturation 98% 01/28/2025 1:49 PM EST Inhaled Oxygen Concentration - - Weight 70.9 kg (156 lb 6.4 oz) 01/28/2025 1:49 P M EST Height 170.2 cm (5' 7 ) 01/17/2025 10:31 AM EST Body Mass Index 24.5 01/17/2025 10:31 AM EST Plan of Treatment Upcoming Encounters Date Type Department Care Team (Late st Contact Info) Description 03/30/2025 8:40 AM EST Office Visit [facility] [address] [facility] [address] [place] [address] Klaudia Fan MD 15 [facility] [address] [place] [address] Health Maintenance Due Date Last Done Comments COLOGUARD 10/27/2004 FIT TEST 10/27/2004 FOBT 10/27/2004 SIGMOIDOSCOPY 10/27/2004 VIRTUAL COLONOSCOPY 10/27/2004 DEPRESSION SCREENING 03/09/2025 03/09/2024 HIV ONE-TIME SCREENING (18-65 YEARS) 03/10/2025 Postponed from 10/27/1977 (Patient Declines / Guardian Declines) COVID-19 VACCINE ( season) 2025 12/04/2024, 03/21/2024, 05/17/2023, Additional history exists SMOKING Hx and SMOKELESS TOBACCO SCREENING 08/26/2025 [...] 11/02/2019 PNEUMOCOCCAL VACCINES (50+ years) Completed 03/09/2024 INFLUENZA VACCINE Completed 12/30/2024, , 12/25/2022, Additional history exists OSTEOPOROSIS SCREENING INITIAL (ONE-TIME) Completed 01/07/2025, 01/05/2025 HEPATITIS A VACCINES Aged Out No [...] this topic Medical Devices Implanted Type Area Terminal Block Assembler Device Identifier Shelf Expiration Date Model / Serial / Lot Hip 36mm 0 G7 Dema Type 1 Standard - [id number] Implanted:Qty: 1 on 02/06/2023 by Jeanine Qureshi MD at [facility] STANDARD Left: Hip [employer] 06/23/2032 [id number] / / [id number] Screw Dome 6.5x35mm G7 Aceetabular Low Profile Hip - [id number] Implanted:Qty: 1 on 02/06/2023 by Jeanine Qureshi MD at [facility] Left: Hip [employer] [id number] 08/13/2032 [id number] / / [id number] Acetabular Shell 52mm Size E G7 Porous Plasma [place] Limited Hole - [id number] Implanted:Qty: 1 on 02/06/2023 by Jeainne Qureshi MD at [facility] Left: Hip [employer] [id number] 03/28/2032 [id number] / / [id number] Hip Stem 59n333mb 135deg Echo Bimetric Revision Titanium Porous Reduced Proximalimal Profile Neck - [id number] Implanted:Qty: 1 on 02/06/2023 by Jeanine Qureshi MD at [facility] Left: Hip [employer] [id number] 11/10/2030 [id number] / / [id number] Hip Liner 36mm E Acetabular Neutral G7 Longevity - [id number] Implanted:Qty: 1 on 02/06/2023 by Jeanine Qureshi MD at [facility] Left: Hip JAYA [employer] 02/06/2027 [id number] / / [id number] Procedures Procedure Name Priority Date/Time Associated Diagnosis Comments POCT GROUP A STREPTOCOCCUS, PCR Routine 01/17/2025 9:36 AM EST BD DXA SCREENING Routine 01/07/2025 2:20 PM EDT Menopause BD DXA SCREENING Routine 01/05/2025 4:04 PM [...] Recently Relevant to Health Maintenance Results * POCT Group A Streptococcus, PCR (01/17/2025 9:36 AM EST) Strep A, PCR Not Detected Not Detected 01/18/20 25 10:01 AM EST [facility] [place] Swab (Throat) 01/17/2025 9:3 6 AM EST 01/17/2025 10:01 AM EST us Dillan patricia PA-C LAB POCT DOCKED DEVICE UNSOLICTED RESULTS Final Result [facility] [address], [facility] [phone] * DXA Screening (01/05/2025 4:04 PM EDT) Anatomical Region Laterality Modality Bone Density Bone Density us Klaudia BARROSO BD BONE DENSITY DEXA Fin al Result [...] (03/27/2024 3:10 PM EST) HDL 82 mg/dL [facility] Comment: Interpretation <40 mg/dL: Low HDL cholesterol (major risk factor for CHD) Greater than or equal to 60 mg/dL: High HDL cholesterol ( negative risk factor for CHD) HDL - cholesterol is affected by a number of factors, e.g. smoking, excerise, hormones, sex and age. CHOLESTEROL 157 0 - 240 mg/dL [facility] TRIGLYCERIDES 84 30 - 160 mg/dL [facility] LDL 58 50 - 129 mg/dL [facility] Comment: LDL levels in terms of risk for coronary heart disease: <100 mg/dL: Optimal 100-129 mg/dL: Near or above optimal 130-159 mg/dL: Borderline high 160-189 mg/dL: High >190 mg/dL: Very High CARDIAC RISK RATIO 1.9(L) 3.3 - 4.4 C [facility] Blood 03/27/2024 3:10 PM EST 03/27/2024 3:13 PM EST us Klaudia Fan MD LAB BLOOD BKR ORDERABLES Fin al Result [address] [address] * ENDOSCOPY, COLON (07/26/2023 9:48 AM EDT) Narrative Transcriptions Jeannie Barber MD - 07/26/2023 9:48 AM EDT [facility] Patient Name: Gilmer Catherine MD:: JEANINE BARBER MD, Procedure Date: 07/26/2023 9:48 AM Date of : 1960 Age: 62 Admit Type: Outpatient Gender: Female Room: [facility] Referring MD: Klaudia Fan Exam Type: Colonoscopy Indications: Screening for colon [...] 9:48 AM Procedure Code(s): --- Professional --- 45004, Colonoscopy, flexible; diagnostic, including collection of specimen(s) by brushing or washing, when performed (separateprocedure) --- Technical --- 27147, Colonoscopy, flexible; diagnostic, including collection of specimen(s) [...] congenital malformations of intestine CPT copyright 2021 [employer]. All rights reserved. The codes documented in this report are preliminary and upon fruit press operator reviewmay be revised to meet current compliance requirements. Procedure Date: 07/26/2023 9:48:[address] [place] [id number] Klaudia Fan MD GI PROCEDURE ORDERABLES Kati catherine Result * Pap Test (01/18/2023 12:00 AM EST) 01/18/2023 01/21/2023 9:0 3 AM EST Narrative SEE NARRATIVE - 01/24/2023 9:12 AM EST [address] [address] Planning Consultant: Kelly Alonso MD FINAL ASSEMBLY WORKER Cytology Report FINAL DIAGNOSIS A. PAP SMEAR [...] 59, 66, 68) Note: Testing performed by [employer] HR-HPV analysis. Clinical correlation is advised. This HPV test was performed at [facility], [address] [place] [address]. This test has been FDA approved for [facility] cervical cytology specimens. The accuracy and precision of this test for all other specimen sources has been verified in the Cytopathology Laboratory of the [facility] and has not been cleared or approved by the U.S. Food and Drug Administration. Clinical correlation is advised. CLINICAL HISTORY Date of Last Menstrual Period: Not Provided Menstrual History: Post Menopausal Other Clinical Conditions: Screening Pap SPECIMEN SOURCE A: PAP SMEAR (SUREPATH) CE Patient Name: GILMER MADRIGAL : 1960 (Age: 62) Sex: F Institution: [facility] Location: [facility] Date of Collection: 01/18/2023 Date of Reported: 01/24/2023 09:12 Results to: Isabel Lozada MD us Isabel Lozada MD CYTOLOGY ORDERABLES Final Res ult SEE NARRATIVE * Hepatitis C antibody, qualitative (11/17/2019 5:12 PM EDT) HCV NON-REACTIV E NON-REACTI VE [facility] Blood 11/17/2019 5:12 PM EDT 11/17/2019 5:19 PM EDT us Klaudia Fan MD LAB BLOOD BKR ORDERABLES Fin al Result [facility] [address] [place] [address] from Last 3 Months or Most Recently Relevant to Health Maintenance Insurance [facility] EMPLOYEES FAMILY [facility] [employer] BENEFITS ADMINIST[employer]ATORS [facility] EMPLOYEES FAMILY [facility] [place]EF[place] [address] [place] [address] [place] [address] [place] [address] EMPLOYEES FAMILY [facility] [place] [address] [place] [address] EMPLOYEES FAMILY [employer] BENEFITS ADMINISTRATORS [employer] ADMINISTRATORS [facility] EMPLOYEES [facility] BENEFITS ADMINISTRATORS Advance Directives For more information, please contact: [phone] (9AM - 5PM [facility], Saturday-Saturday) * Full Code (Latest Code Status on File) Date Activated Date Inactivated Comments 02/06/2023 6:27 AM Question Answer Comments Code Status Confirmed With: Patient Care Teams Cleaning Crew Member Relationship Specialty Start Date End Date Klaudia Fan MD [address] [place] [id number] PCP - General Family Medicine 09/21/19 Additional Source Comments The information contained in this document represents components of the legal health record. It is not the complete legal health record.[facility]
--- OUTSIDE RECORDS SUMMARY | 2025-01-29 14:20 | XMS_ITS | Encounter Summary ---
Author Organization [facility] Address [address] [facility] [address] [place] [address] Phone Care Team Providers Care Orange Picking Supervisor Name Role Phone Klaudia Fan MD Primary Care Provider [phone] Encounter Details Date Type Department Care Team (Late st Contact Info) Description 03/17/2020 Telemedicine [facility] [address] [place] [address] Quentin Reddy [address] [place] [address] [email or web address] Social History Tobacco Use Types Packs/Day Years [...] EST Office Visit [facility] [place] [address] [facility] [address] [place], [place] [phone] Klaudia Fan MD [address] [facility] [address] [place], [place] [phone] [email or web address] documented as of this encounter Visit Diagnoses Not on filedocumented in this encounter Additional Health Concerns Infection Onset Date Last Indicated Resolved Time CoV-Risk 04/29/2020 04/29/2020 05/09/2020 1:23 AM EST CoV-Exposed Comment:From [employer]Pass 08/21/2021 08/21/2021 09/01/2021 1:24 A M EDT COVID-19 11/19/2023 11/19/2023 12/10/2023 1:21 AM EDT documented as of this encounter Care Teams Orange Picking Supervisor Relationship Specialty Start Date End Date Klaudia Fan MD [address] [place] [phone] [email or web address] PCP - General Family Medicine 09/21/19 documented as of this encounter Additional Source Comments The information contained in this document represents components of the legal health record. It is not the complete legal health record.[facility]
--- OUTSIDE RECORDS SUMMARY | 2025-01-29 14:20 | XMS_ITS | Encounter Summary ---
Author Organization [facility] Address [address] [place] [address] [place] [address] Phone Care Team Providers Care Whipped Topping Mixer Name Role Phone Klaudia Fan MD Primary Care Provider [phone] Reason for Visit * Reason Comments Med Change Request Encounter Details Date Type Department Care Team ([facility] Contact Info) Description 03/07/2023 Refill [facility] [address] [place] [address] Slick Mae PA-C [address] [place] [address] Orthopedics & Sports Medicine, [place] [address] [email or web address] Med Change Request Social History Tobacco Use [...] AM EST Office Visit [facility] [address] [facility] [address] [place] [address] Klaudia Fan MD 15 [facility] [address] [place] [address] documented as of this encounter Visit Diagnoses Not on filedocumented in this encounter Additional Health Concerns Infection Onset Date Last Indicated Resolved Time COVID-19 11/19/2023 11/19/2023 12/10/2023 1:21 AM EDT documented as of this encounter Care Teams Whipped Topping Mixer Relationship Specialty Start Date End Date Klaudia Fan MD [address] [facility] [address] [place] [address] [email or web address] PCP - General Family Medicine 09/21/19 documented as of this encounter Additional Source Comments The information contained in this document represents components of the legal health record. It is not the complete legal health record.[facility]
--- OUTSIDE RECORDS SUMMARY | 2025-01-29 14:20 | XMS_ITS | Encounter Summary ---
Author Organization [facility] Address [address] [place] [address] [place] [address] Phone Care Team Providers Care Granite Cutter Apprentice Name Role Phone Klaudia Fan MD Primary Care Provider [phone] Reason for Referral * Outpatient Procedure - Closed Specialty Diagnoses / Procedures Referred By Sid gallardo Referred To Contact Radiology Diagnoses Other microscopic hematuria Personal history of urinary calculi Procedures US Kidneys and Bladder Marleni Spence MD Phone: tel: fax: [email or web address] Referral ID Status Reason Start Date Expiration Date Visits Re quested Visits Authorized [id number] Closed 12/20/2020 12/20/2021 1 1 Encounter Details Date Type Department Care Team (Latest Contact Info) Description 12/20/2020 Transcribe Orders Virtual Department [address] [place] [address] Marleni Spence MD [address] [place] [phone] [email or web address] Other microscopic hematuria (Primary Dx); Personal history [...] 03/30/2025 8:40 AM EST Office Visit [facility] [address] [place] [address] Klaudia Fan MD 15 [facility] [address] [place] [address] [email or web address] documented as of this encounter Results * [...] nephrolithiasis or hydronephrosis. 2.Minimal postvoid bladder residual. Marleni Spence MD IMG US RENAL Final [...] represent anincidental phlebolith. 2.Mild bilateral hip osteoarthritis. Marleni Spence MD IMG XR ABDOMEN Final [...] documented as of this encounter Care Teams Granite Cutter Apprentice Relationship Specialty Start Date End Date Klaudia Fan MD [address] [place] [address] [email or web address] PCP - General Family Medicine 09/21/19 documented as of this encounter Additional Source Comments The information contained in this document represents components of the legal health record. It is not the complete legal health record.[facility]
== END 2025-01-29 13:49 | disposition home or self-care (01) ==
LOC: HO.XRAY 13:48
PROVIDERS: PCP Family Medicine; Visit Provider Family Medicine
DX: Z13.89 Encounter for screening for other disorder (principal)

== ENCOUNTER 2025-02-03 10:48 | Outpatient (REF) | payer OTHER, SELFPAY ==
--- NOTE | ~2025-02-03 | XR_ITS ---
EXAMINATION: XR CERVICAL SPINE CLINICAL INFORMATION: RT ARM PAIN COMPARISON: None available. TECHNIQUE: 3 views of the cervical spine were obtained. FINDINGS: Straightening of the cervical curvature. No evidence of acute fracture or subluxation. Vertebral body heights are maintained. Multilevel disc degeneration, more prominent findings of mild-moderate disc degeneration at C5-6, C6-7. Facet degeneration in the lower cervical spine. No prevertebral soft tissue swelling. Predens space is maintained. Lung apices are clear. XR/XR cervical spine 3V IMPRESSION: No acute findings. Cervical spondylosis Electronically signed by: Toi Gambino MD 02/03/2025 04:36 PM EST
--- OUTSIDE RECORDS SUMMARY | 2025-02-03 13:15 | XMS_ITS | Encounter Summary ---
Author Organization [facility] Address [address] [facility] [address] [place] [address] Phone Care Team Providers Care Foxer Name Role Phone Jackie Swanson MD Primary Care Provider + [phone] Klaudia Fan MD Primary Care Provider [phone] Encounter Details Date Type Department Care Team (Late st Contact Info) Description 05/31/2017 Transcribe Orders [address] [place] [address] Jackie Swanson MD [address] [place] [address] [email or web address] Anemia, unspecified type [...] Description 03/30/2025 8:40 AM EST Office Visit [facility] [address] [facility] [address] [place] [address] Klaudia Fan MD 15 [facility] [address] [place] [address] [email or web address] documented as of this encounter Results * 25-OH vitamin D (05/31/2017 7:52 AM EDT) Pathologist [facility] 25 [place] VIT D (TOTAL) 50 30 - 1,000 ng/mL [facility] Blood 05/31/2017 7:52 AM EDT 05/31/2017 7:56 AM EDT Jackie Swanson MD LAB BLOOD BKR ORDERABLES Fin al Result [address] [address] * TSH (05/31/2017 7:52 AM EDT) [facility] TSH 2.11 0.27 - 4.20 uIU/mL [facility] Blood 05/31/2017 7:52 AM EDT 05/31/2017 7:56 AM EDT Jackie Swanson MD LAB BLOOD BKR ORDERABLES Fin al Result Performing Organization Address [facility]/ZIP Co de Phone Number [address] [address] * CBC and differential (05/31/2017 7:52 AM EDT) [facility] WBC 4.17 3.40 - 11.20 K/uL [facility] RBC 3.83 3.80 - 4.80 M/uL [facility] HGB 12.1 12.0 - 15.0 g/dL [facility] HCT 36.3 36.0 - 46.0 % [facility] PLT 158 130 - 400 K/uL [facility] MCV 94.8 79.0 - 98.0 fL [facility] MCH 31.6 27.0 - 34.8 pg [facility] MCHC 33.3 31.5 - 36.0 g/dL [facility] RDW 12.2 10.8 - 14.6 % [facility] MPV 11.7 9.4 - 12.4 fl [facility] NRBC 0.00 /100 WBCs [facility] ABSOLUTE NRBC 0.00 K/uL [facility] DIFF METHOD Auto [facility] NEUTS 63.0 45.30 - 77.70 % [facility] LYMPHS 26.1 12.30 - 39.70 % [facility] MONOS 9.1 4.10 - 12.80 % [facility] EOS 1.4 0 - 7.2 % [facility] BASOS 0.2 0 - 2.80 % [facility] Granulocytes, immature (%) 0.2 0.0 - 0.9 % [facility] ABSOLUTE NEUTS 2.62 1.40 - 7.70 K/uL [facility] ABSOLUTE LYMPHS 1.09 0.60 - 3.20 K/uL [facility] ABSOLUTE MONOS 0.38 0.11 - 0.59 K/uL [facility] ABSOLUTE EOS 0.06 0.01 - 0.50 K/uL [facility] ABSOLUTE BASOS 0.01 0.00 - 0.08 K/uL [facility] Granulocytes, immature 0.01 0.00 - 0.05 K/uL [facility] Blood 05/31/2017 7:52 AM EDT 05/31/2017 7:56 AM EDT us Jackie Swanson MD LAB BLOOD BKR ORDERABLES Fin al Result Performing Organization Address City/State/[facility] Co de Phone Number [address] [address] * (ABNORMAL) Comprehensive metabolic panel (05/31/2017 7:52 AM EDT) SODIUM 137 133 - 146 mmol/L [facility] POTASSIUM 4.2 3.3 - 5.1 mmol/L [facility] CHLORIDE 101 96 - 108 mmol/L [facility] CO2 26 21 - 35 mmol/L [facility] BUN 14 6 - 19 mg/dL [facility] CREATININE 0.90 0.5 - 1.5 mg/dL [facility] GLUCOSE 96 70 - 99 mg/dL [facility] ALBUMIN 4.1 3.9 - 4.8 g/dL [facility] TOTAL PROTEIN 6.9 6.5 - 8.0 g/dL [facility] CALCIUM 8.9 8.4 - 10.3 mg/dL [facility] ALKALINE PHOSPHATASE 37(L) 39 - 117 U/L [facility] TOTAL BILIRUBIN 0.6 0.0 - 1.2 mg/dL [facility] AST 19 0 - 37 U/L [facility] ALT 11 0 - 40 U/L [facility] GLOBULIN 2.8 1 - 4.8 g/dL [facility] EGFR 71 >59 mL/min/1.7 3m2 [facility] Comment:If patient is black, multiply result by 1.159. The eGFR calculation has changed from the MDRD equation to the CKD-EPI equation as of May 14, 2017. ANION GAP 14 10 - 20 mmol/L [facility] Blood 05/31/2017 7:52 AM EDT 05/31/2017 7:56 AM EDT us Jackie Swanson MD LAB BLOOD BKR ORDERABLES Fin al Result [facility] [address] [place] [address] documented in this encounter Visit Diagnoses Diagnosis [...] documented as of this encounter Care Teams Foxer Relationship Specialty Start Date End Date Jackie Swanson MD [address] [place] [address] PCP - General Internal Medicine 05/31/17 09/20/19 Klaudia Fan MD [address] [place] [address] [email or web address] PCP - General Family Medicine 09/21/19 documented as of this encounter Additional Source Comments The information contained in this document represents components of the legal health record. It is not the complete legal health record.[facility]
--- OUTSIDE RECORDS SUMMARY | 2025-02-03 13:15 | XMS_ITS | Encounter Summary ---
Author Organization [facility] Address [address] [facility] [address] [place] [address] Phone Care Team Providers Care Tree Topper Name Role Phone Klaudia Fan MD Primary Care Provider [phone] Encounter Details Date Type Department Care Team ([facility] st Contact Info) Description 07/26/2023 Procedure Pass [facility] Endoscopy Admitting Dept Virtual Department [address] [place] [address] Social History Tobacco Use Types Packs/Day Years [...] Description 03/30/2025 8:40 AM EST Office Visit [facility] Primary Care [address] [facility] [address] [place] [address] Klaudia Fan MD 15 [facility] 201 [place] [address] documented as of this encounter Visit Diagnoses Not on filedocumented in this encounter Additional Health Concerns Infection Onset Date Last Indicated Resolved Time COVID-19 11/19/2023 11/19/2023 12/10/2023 1:21 AM EDT documented as of this encounter Care Teams Tree Topper Relationship Specialty Start Date End Date Klaudia Fan MD 15 [facility] [address] [place] [address] PCP - General Family Medicine 09/21/19 documented as of this encounter Additional Source Comments The information contained in this document represents components of the legal health record. It is not the complete legal health record.[facility]
--- OUTSIDE RECORDS SUMMARY | 2025-02-03 13:15 | XMS_ITS | Encounter Summary ---
Author Organization [facility] Address [address] [place] [address] Phone Care Team Providers Care Architectural Intern Name Role Phone Klaudia Fan MD Primary Care Provider [phone] Encounter Details Date Type Department Care Team (Late st Contact Info) Description 02/15/2020 Procedure Pass [facility] - [address] [place] [address] Social History Tobacco Use Types Packs/Day Years [...] Description 03/30/2025 8:40 AM EST Office Visit [facility] Primary Care [address] [facility] [address] [place], [place] [phone] Klaudia Fan MD 15 [facility] [address] [place] [address] [email or web address] documented as of this encounter Visit Diagnoses Not on filedocumented in this encounter Additional Health Concerns Infection Onset Date Last Indicated Resolved Time CoV-Risk 04/29/2020 04/29/2020 05/09/2020 1:23 AM EST CoV-Exposed Comment:From COVIDPass 08/21/2021 08/21/2021 09/01/2021 1:24 A M EDT COVID-19 11/19/2023 11/19/2023 12/10/2023 1:21 AM EDT documented as of this encounter Care Teams Architectural Intern Relationship Specialty Start Date End Date Klaudia Fan MD 15 [place] [address] [email or web address] PCP - General Family Medicine 09/21/19 documented as of this encounter Additional Source Comments The information contained in this document represents components of the legal health record. It is not the complete legal health record.[facility]
--- OUTSIDE RECORDS SUMMARY | 2025-02-03 13:15 | XMS_ITS | Encounter Summary ---
Author Organization [facility] Address [address] [place] [address] Phone Care Team Providers Care Channel Rebuilder Name Role Phone Klaudia Fan MD Primary Care Provider [phone] Encounter Details Date Type Department Care Team (Late st Contact Info) Description 06/15/2020 Procedure Pass [address] [place] [address] Social History Tobacco Use Types Packs/Day Years [...] Description 03/30/2025 8:40 AM EST Office Visit [facility] Primary Care 15 [facility] [address] [place], [place] [phone] Klaudia Fan MD 15 [facility] [address] [place] [address] [email or web address] documented as of this encounter Visit Diagnoses Not on filedocumented in this encounter Additional Health Concerns Infection Onset Date Last Indicated Resolved Time CoV-Exposed Comment:From COVIDPass 08/21/2021 08/21/2021 09/01/2021 1:24 A M EDT COVID-19 11/19/2023 11/19/2023 12/10/2023 1:21 AM EDT documented as of this encounter Care Teams Channel Rebuilder Relationship Specialty Start Date End Date Klaudia Fan MD [address] [place] [address] [email or web address] PCP - General Family Medicine 09/21/19 documented as of this encounter Additional Source Comments The information contained in this document represents components of the legal health record. It is not the complete legal health record.[facility]
--- OUTSIDE RECORDS SUMMARY | 2025-02-03 13:15 | XMS_ITS | Encounter Summary ---
Author Organization [facility] Address [address] [facility] [address] [place] [address] Phone Care Team Providers Care Senior Ui Developer Name Role Phone Klaudia Fan MD Primary Care Provider [phone] Encounter Details Date Type Department Care Team (Latest Contact Info) Description 12/24/2022 Transcribe Orders [facility] Phleb Main [address] [place] [address] Klaudia Fan MD 15 [facility] [address] [place] [address] [email or web address] Abnormal laboratory test (Primary Dx) Social History [...] Description 03/30/2025 8:40 AM EST Office Visit [facility] Primary Care 15 [facility] [address] [place] [address] Klaudia Fan MD [address] [facility] [address] [place] [address] [email or web address] documented as of this encounter Results * Folate (12/31/2022 2:25 PM EDT) FOLIC ACID 13.7 4.2 - 19.9 ng/mL [facility] Blood 12/31/2022 2:25 PM EDT 12/31/2022 2:28 PM EDT us Klaudia Fan MD LAB BLOOD BKR ORDERABLES Fin al Result Performing Organization Address City/[facility]/ZIP Co de Phone Number [address] [address] * Vitamin B12 (12/31/2022 2:25 PM EDT) VITAMIN B12 979 232 - 1,245 pg/mL [facility] Blood 12/31/2022 2:25 PM EDT 12/31/2022 2:28 PM EDT Klaudia Fan MD LAB BLOOD BKR ORDERABLES Fin al Result Performing Organization Address City/[facility]/ZIP Co de Phone Number [address] [address] documented in this encounter Visit Diagnoses Diagnosis Abnormal laboratory test- Primary Other abnormal clinical finding documented in this encounter Additional Health Concerns Infection Onset Date Last Indicated Resolved Time COVID-19 11/19/2023 11/19/2023 12/10/2023 1:21 AM EDT documented as of this encounter Care Teams Senior Ui Developer Relationship Specialty Start Date End Date Klaudia Fan MD [address] [place] [address] [email or web address] PCP - General Family Medicine 09/21/19 documented as of this encounter Additional Source Comments The information contained in this document represents components of the legal health record. It is not the complete legal health record.[facility]
--- OUTSIDE RECORDS SUMMARY | 2025-02-03 13:15 | XMS_ITS | Encounter Summary ---
Author Organization [facility] Address [address] [facility] [address] [place] [address] Phone Care Team Providers Care Admissions Counselor Name Role Phone Jackie Swanson MD Primary Care Provider + [phone] Klaudia Fan MD Primary Care Provider + [phone] Encounter Details Date Type Department Care Team (Late st Contact Info) Description 06/22/2017 Ancillary Orders [facility], X-Ray - [address] [place] [address] Jackie Swanson MD [address] [place] [address] [email or web address] Pain Social History Tobacco Use Types Packs/Day [...] AM EST Office Visit [facility] [place] Primary Care [address] [facility] [address] [place] [address] Klaudia Fan MD 15 [facility] [address] [place] [address] [email or web address] documented as of this encounter Results * XR Sacrum and Coccyx (06/22/2017 4:05 PM EDT) Anatomical Region Laterality Modality L-spine Radiographic Kylee ging 06/23/2017 10:2 1 AM EDT Impressions 06/23/2017 10:23 AM EDT Very equivocal fracture deformity of the proximal coccyx which may represent a subtle change from 2011. No other post-traumatic bony abnormality suggested. POS [id number] Narrative 06/23/2017 10:23 AM EDT COMPARISON: 06/10/2011 [...] 2011. No other post-traumatic bonyabnormality suggested. POS [id number] Jackie Swanson MD IMG XR SPINE Final [...] documented as of this encounter Care Teams Admissions Counselor Relationship Specialty Start Date End Date Jackie Swanson MD [address] [place] [address] [address] [place] [address] [email or web address] PCP - General Internal Medicine 05/31/17 09/20/19 Klaudia Fan MD [address] [place] [address] [email or web address] PCP - General Family Medicine 09/21/19 documented as of this encounter Additional Source Comments The information contained in this document represents components of the legal health record. It is not the complete legal health record.[facility]
--- OUTSIDE RECORDS SUMMARY | 2025-02-03 13:16 | XMS_ITS | Encounter Summary ---
Author Organization [facility] Address [address] [place] [address] Phone Care Team Providers Care Technology Strategist Name Role Phone Klaudia Fan MD Primary Care Provider [phone] Encounter Details Date Type Department Care Team (Late st Contact Info) Description 06/01/2022 Ancillary Orders [facility] Primary Care [address] [facility] [address] [place] [address] Klaudia Fan MD 15 [facility] [address] [place] [address] [email or web address] Chronic pain of both hips Social History [...] AM EST Office Visit [facility] Primary Care [address] [place] [address] Klaudia Fan MD [address] [address] [email or web address] documented as of this encounter Results * [...] documented as of this encounter Care Teams Technology Strategist Relationship Specialty Start Date End Date Klaudia Fan MD [address] [place] [address] [email or web address] PCP - General Family Medicine 09/21/19 documented as of this encounter Additional Source Comments The information contained in this document represents components of the legal health record. It is not the complete legal health record.[facility]
--- OUTSIDE RECORDS SUMMARY | 2025-02-03 13:16 | XMS_ITS | Encounter Summary ---
Author Organization [facility] Address [address] [place] [address] [place] [address] Phone Care Team Providers Care User Support Analyst Name Role Phone Jackie Swanson MD Primary Care Provider + [phone] Klaudia Fan MD Primary Care Provider + [phone] Reason for Referral * MRI/CAT Scan - Closed Specialty Diagnoses / Procedures Referred By Contamilcar t Referred To Contact Radiology Diagnoses Sacrococcygeal disorders, not elsewhere classified Procedures MRI Pelvis (Bone) Jackie Swanson MD Phone: tel: [email or web address] Referral ID Status Reason Start Date Expiration Date Visits Re quested Visits Authorized [id number] Closed 07/09/2017 09/06/2017 1 1 Encounter Details Date Type Department Care Team (Latest Contact Info) Description 07/11/2017 Ancillary Orders Virtual Department 30 [place] [address] Jackie Swanson MD 25 [place] [address] [email or web address] Sacrococcygeal disorders, not elsewhere classified Social History [...] Description 03/30/2025 8:40 AM EST Office Visit [facility] Primary Care [address] [facility] [address] [place] [address] Klaudia Fan MD 15 [facility] [address] [place] [address] [email or web address] documented as of this encounter Results * MRI PELVIS (BONY FOCUS) WITHOUT CONTRAST (07/29/2017 9:43 AM EDT) Anatomical Region Laterality Modality Pelvis Magnetic Resonan ce 07/29/2017 10:0 1 AM EDT Impressions 07/29/2017 10:11 AM EDT No fractures or dislocations. POS [id number] Narrative 07/29/2017 10:11 AM EDT EXAM: MRI [...] unremarkable. IMPRESSION: No fractures or dislocations. POS [id number] Jackie Swanson MD IMG MR PELVIS Final [...] documented as of this encounter Care Teams User Support Analyst Relationship Specialty Start Date End Date Jackie Swanson MD [address] [place] [address] PCP - General Internal Medicine 05/31/17 09/20/19 Klaudia Fan MD [address] [place] [address] PCP - General Family Medicine 09/21/19 documented as of this encounter Additional Source Comments The information contained in this document represents components of the legal health record. It is not the complete legal health record.[facility]
--- OUTSIDE RECORDS SUMMARY | 2025-02-03 13:16 | XMS_ITS | Encounter Summary ---
Author Organization [facility] Address [address] [facility] [address] [place] [address] Phone Care Team Providers Care Crm Architect Name Role Phone Klaudia Fan MD Primary Care Provider [phone] Encounter Details Date Type Department Care Team (Late st Contact Info) Description 01/05/2025 Orders Only [facility] Primary Care 15 [facility] [address] [place] [address] Klaudia Fan MD 15 [facility] [address] [place] [address] [email or web address] Routine medical exam Social History Tobacco Use [...] high school, GED, job training, learning the Ukrainian language, technical skills, or developing parenting skills)? [...] Description 03/30/2025 8:40 AM EST Office Visit [facility] [place] Primary Care [address] [facility] [address] [place] [address] Klaudia Fan MD 15 [facility] [address] [place] [address] documented as of this encounter Procedures Procedure [...] documented as of this encounter Care Teams Crm Architect Relationship Specialty Start Date End Date Klaudia Fan MD 15 [facility] [address] [place] [address] PCP - General Family Medicine 09/21/19 documented as of this encounter Additional Source Comments The information contained in this document represents components of the legal health record. It is not the complete legal health record.[facility]
--- OUTSIDE RECORDS SUMMARY | 2025-02-03 13:16 | XMS_ITS | Encounter Summary ---
Author Organization [facility] Address [address] [place] [address] [address] [place] [address] Phone Care Team Providers Care Hosiery Knitter Name Role Phone Jackie Swanson MD Primary Care Provider + [phone] Klaudia Fan MD Primary Care Provider + [phone] Encounter Details Date Type Department Care Team (Late st Contact Info) Description 01/31/2018 Ancillary Orders [facility], X-Ray - [address] [address] Jackie Swanson MD [address] [place] [address] [email or web address] Pain in left hip Social History [...] Description 03/30/2025 8:40 AM EST Office Visit [facility] Primary Care [facility] [address] [place] [address] Klaudia Fan MD 15 [facility] 201 [place] [address] [email or web address] documented as of this encounter Results * [...] documented as of this encounter Care Teams Hosiery Knitter Relationship Specialty Start Date End Date Jackie Swanson MD [address] [place] [address] PCP - General Internal Medicine 05/31/17 09/20/19 Klaudia Fan MD [address] [place] [address] PCP - General Family Medicine 09/21/19 documented as of this encounter Additional Source Comments The information contained in this document represents components of the legal health record. It is not the complete legal health record.[facility]
--- OUTSIDE RECORDS SUMMARY | 2025-02-03 13:16 | XMS_ITS | Encounter Summary ---
Author Organization [facility] Address [facility] [address] [place] [address] Phone Care Team Providers Care Barrel Line Operator Name Role Phone Jackie Swanson MD Primary Care Provider + [phone] Klaudia Fan MD Primary Care Provider + [phone] Encounter Details Date Type Department Care Team (Late st Contact Info) Description 01/29/2018 Transcribe Orders [facility] Phleb Main 30 [place] [address] Jackie Swanson MD 25 [place] [address] Mild cognitive impairment (Primary Dx); Vitamin D [...] Description 03/30/2025 8:40 AM EST Office Visit [facility] Care [facility] [address] [place] [address] Klaudia Fan MD [address] [address] [email or web address] documented as of this encounter Results * 25-OH vitamin D (01/29/2018 2:55 PM EST) 25 OH VIT D (TOTAL) 54 30 - 60 ng/mL [facility] Blood 01/29/2018 2:55 PM EST 01/29/2018 3:00 PM EST Jackie Swanson MD LAB BLOOD BKR ORDERABLES Fin al Result [address] [address] * TSH with reflex (01/29/2018 2:55 PM EST) TSH 1.66 0.27 - 4.20 uIU/mL [facility] Blood 01/29/2018 2:55 PM EST 01/29/2018 3:00 PM EST Jackie Swanson MD LAB BLOOD BKR ORDERABLES Fin al Result Performing Organization Address City/[facility]/ZIP Co de Phone Number [address] [address] * Vitamin B12 (01/29/2018 2:55 PM EST) VITAMIN B12 830 232 - 1,245 pg/mL [facility] Blood 01/29/2018 2:55 PM EST 01/29/2018 3:00 PM EST Jackie Swanson MD LAB BLOOD BKR ORDERABLES Fin al Result Performing Organization Address [facility]/ZIP Co de Phone Number [address] [address] * Methylmalonic acid, serum (01/29/2018 2:55 PM EST) METHYLMALONIC ACID 0.13 <=0.40 nmol/mL [facility] PAT+ Comment: (NOTE) ADDITIONAL INFORMATION This test was developed and its performance characteristics determined by [facility] in a manner consistent with CLIA requirements. This test has not been cleared or approved by the U.S. Food and Drug Administration. Blood 01/29/2018 2:55 PM EST 01/29/2018 3:00 PM EST us Jackie Swanson MD LAB BLOOD ORDERABLES Final R esult Performing Organization Address [facility] Co de Phone Number [facility] PAT+ [address] [place] [address] * Homocysteine (01/29/2018 2:55 PM EST) HOMOCYSTEINE,TOTAL 7 <=13 (Fasting) MCMOL/L [facility] PAT+ Comment: (NOTE) ADDITIONAL INFORMATION This test was developed and its performance characteristics determined by [facility] in a manner consistent with CLIA requirements. This test has not been cleared or approved by the U.S. Food and Drug Administration. Blood 01/29/2018 2:55 PM EST 01/29/2018 3:00 PM EST us Jackie Swanson MD LAB BLOOD BKR ORDERABLES Fin al Result Performing Organization Address City/[facility]/ZIP Co de Phone Number [facility] PAT+ [address] [place] [address] * Folate (01/29/2018 2:55 PM EST) FOLIC ACID 14.6 4.2 - 19.9 ng/mL [facility] Blood 01/29/2018 2:55 PM EST 01/29/2018 3:00 PM EST Jackie Swanson MD LAB BLOOD BKR ORDERABLES Fin al Result [address] [address] * (ABNORMAL) Comprehensive metabolic panel (01/29/2018 2:55 PM EST) SODIUM 143 133 - 146 mmol/L [facility] POTASSIUM 3.9 3.3 - 5.1 mmol/L [facility] CHLORIDE 103 96 - 108 mmol/L [facility] CO2 28 21 - 35 mmol/L [facility] BUN 10 6 - 19 mg/dL [facility] CREATININE 0.90 0.5 - 1.5 mg/dL [facility] GLUCOSE 115(H) 70 - 99 mg/dL [facility] ALBUMIN 4.4 3.9 - 4.8 g/dL [facility] TOTAL PROTEIN 6.7 6.5 - 8.0 g/dL [facility] CALCIUM 9.1 8.4 - 10.3 mg/dL [facility] ALKALINE PHOSPHATASE 36(L) 39 - 117 U/L [facility] TOTAL BILIRUBIN 0.4 0.0 - 1.2 mg/dL [facility] AST 18 0 - 37 U/L [facility] ALT 11 0 - 40 U/L [facility] GLOBULIN 2.3 1 - 4.8 g/dL [facility] EGFR 70 >59 mL/min/1.7 3m2 [facility] Comment:If patient is black, multiply result by 1.159. Estimated glomerular filtration rate calculated using the CKD-EPI equation. ANION GAP 16 10 - 20 mmol/L [facility] Blood 01/29/2018 2:55 PM EST 01/29/2018 3:00 PM EST Jackie Swanson MD LAB BLOOD BKR ORDERABLES Fin al Result Performing Organization Address City/[facility]/ZIP Co de Phone Number [address] [address] * (ABNORMAL) CBC (01/29/2018 2:55 PM EST) WBC 5.08 3.40 - 11.20 K/uL [facility] RBC 3.61(L) 3.80 - 4.80 M/uL [facility] HGB 11.4(L) 12.0 - 15.0 g/dL [facility] HCT 34.1(L) 36.0 - 46.0 % [facility] PLT 164 130 - 400 K/uL [facility] MCV 94.5 79.0 - 98.0 fL [facility] MCH 31.6 27.0 - 34.8 pg [facility] MCHC 33.4 31.5 - 36.0 g/dL [facility] RDW 12.1 10.8 - 14.6 % [facility] MPV 11.8 9.4 - 12.4 [facility] NRBC 0.00 0.00 /100 WBCs [facility] ABSOLUTE NRBC 0.00 0.00 K/uL [facility] Blood 01/29/2018 2:55 PM EST 01/29/2018 3:00 PM EST us Jackie Swanson MD LAB BLOOD BKR ORDERABLES Fin al Result Performing Organization Address City/State/[facility] Co de Phone Number [address] [address] documented in this encounter Visit Diagnoses Diagnosis [...] documented as of this encounter Care Teams Barrel Line Operator Relationship Specialty Start Date End Date Jackie Swanson MD [address] [place] [address] [email or web address] PCP - General Internal Medicine 05/31/17 09/20/19 Klaudia Fan MD [address] [place] [address] [email or web address] PCP - General Family Medicine 09/21/19 documented as of this encounter Additional Source Comments The information contained in this document represents components of the legal health record. It is not the complete legal health record.[facility]
--- OUTSIDE RECORDS SUMMARY | 2025-02-03 13:16 | XMS_ITS | Encounter Summary ---
Author Organization [facility] Address [address] [place] [address] Phone Care Team Providers Care Physical Therapy Supervisor Name Role Phone Jackie Swanson MD Primary Care Provider + [phone] Klaudia Fan MD Primary Care Provider + [phone] Encounter Details Date Type Department Care Team (Late st Contact Info) Description 07/11/2017 Procedure Pass [address] [place] [address] Social History Tobacco Use Types Packs/Day Years [...] 03/30/2025 8:40 AM EST Office Visit [facility] [facility] [address] [facility] [address] [place], [place] [phone] Klaudia Fan MD 15 [facility] [address] [place] [address] [email or web address] documented as of this encounter Visit Diagnoses Not on filedocumented in this encounter Additional Health Concerns Infection Onset Date Last Indicated Resolved Time CoV-Risk 11/19/2019 11/19/2019 11/19/2019 4:18 PM EDT CoV-Risk 04/29/2020 04/29/2020 05/09/2020 1:23 AM EST CoV-Exposed Comment:From COVIDPass 08/21/2021 08/21/2021 09/01/2021 1:24 A M EDT COVID-19 11/19/2023 11/19/2023 12/10/2023 1:21 AM EDT documented as of this encounter Care Teams Physical Therapy Supervisor Relationship Specialty Start Date End Date Jackie Swanson MD [address] [place] [address] [email or web address] PCP - General Internal Medicine 05/31/17 09/20/19 Klaudia Fan MD [address] [place] [address] PCP - General Family Medicine 09/21/19 documented as of this encounter Additional Source Comments The information contained in this document represents components of the legal health record. It is not the complete legal health record.[facility]
--- OUTSIDE RECORDS SUMMARY | 2025-02-03 13:16 | XMS_ITS | Encounter Summary ---
Author Organization [facility] Address [address] [facility] [address] [place] [address] Phone Care Team Providers Care Coach Professional Athletes Name Role Phone Jackie Swanson MD Primary Care Provider + [phone] Klaudia Fan MD Primary Care Provider + [phone] Encounter Details Date Type Department Care Team (Latest Contact Info) Description 11/06/2017 Transcribe Orders [facility] Phleb [address] [place] [address] Saira Huffman ARNP Pre-employment health screening examination [...] 8:40 AM EST Office Visit Charla Bailon [facility] [place] [facility] [address] [facility] [address] [place], [place] [phone] Klaudia Fan MD 15 [facility] [address] [place] [address] [email or web address] documented as of this encounter Results * T spot TB test (11/06/2017 10:34 AM EDT) T SPOT Tuberculosis Negative [facility] Blood 11/06/2017 10:3 4 AM EDT 11/06/2017 10:37 AM EDT Saira Huffman [facility] BLOOD ORDERABLES Final Result [facility] [address] [place] [address] documented in this encounter Visit Diagnoses Diagnosis [...] documented as of this encounter Care Teams Coach Professional Athletes Relationship Specialty Start Date End Date Jackie Swanson MD [address] [place] [address] PCP - General Internal Medicine 05/31/17 09/20/19 Klaudia Fan MD [address] [place] [address] PCP - General Family Medicine 09/21/19 documented as of this encounter Additional Source Comments The information contained in this document represents components of the legal health record. It is not the complete legal health record.[facility]
--- OUTSIDE RECORDS SUMMARY | 2025-02-03 13:17 | XMS_ITS | Encounter Summary ---
Author Organization [facility] Address [address] [place] [address] [place] [address] Phone Care Team Providers Care Cylinder Press Operator Name Role Phone Klaudia Fan MD Primary Care Provider [phone] Encounter Details Date Type Department Care Team ([facility] st Contact Info) Description 08/01/2022 Ancillary Orders [address] [address] Madny Navas MD [address] [place] [address] Orthopedics & Sports Medicine, [place] [address] [email or web address] Left hip pain Social History Tobacco Use [...] Description 03/30/2025 8:40 AM EST Office Visit [facility] [place] [facility] [address] [facility] [address] [place] [address] Klaudia Fan MD 15 [facility] [address] [place] [address] [email or web address] Pending Results Name Type Priority Associated Diagnoses [...] documented as of this encounter Care Teams Cylinder Press Operator Relationship Specialty Start Date End Date Klaudia Fan MD 15 [facility] 201 [place] [address] PCP - General Family Medicine 09/21/19 documented as of this encounter Additional Source Comments The information contained in this document represents components of the legal health record. It is not the complete legal health record.[facility]
--- OUTSIDE RECORDS SUMMARY | 2025-02-03 13:17 | XMS_ITS | Encounter Summary ---
Author Organization [facility] Address [address] [place] [address] [place] [address] Phone Care Team Providers Care Oil Rag Washer Name Role Phone Klaudia Fan MD Primary Care Provider [phone] Reason for Visit * Reason Onset Date Comments Sleep Study 10/10/2022 Encounter Details Date Type Department Care Team (Late st Contact Info) Description 10/10/2022 Telephone [facility] Pulmonary, Allergy and Critical Care Medicine [address] [place] [address] [place] [address] Bree Calle [place] [email or web address] Sleep Study Social History Tobacco Use Types [...] AM EST Office Visit [facility] [address] [facility] [address] [place] [address] Klaudia Fan MD 15 [facility] [address] [place] [address] [email or web address] documented as of this encounter Visit Diagnoses Not on filedocumented in this encounter Additional Health Concerns Infection Onset Date Last Indicated Resolved Time COVID-19 11/19/2023 11/19/2023 12/10/2023 1:21 AM EDT documented as of this encounter Care Teams Oil Rag Washer Relationship Specialty Start Date End Date Klaudia Fan MD 15 [facility] [address] [place] [address] [email or web address] PCP - General Family Medicine 09/21/19 documented as of this encounter Additional Source Comments The information contained in this document represents components of the legal health record. It is not the complete legal health record.[facility]
--- OUTSIDE RECORDS SUMMARY | 2025-02-03 13:17 | XMS_ITS | Encounter Summary ---
Author Organization [facility] Address [address] [place] [address] [place] [address] Phone Care Team Providers Care Mixing Machine Tender Name Role Phone Klaudia Fan MD Primary Care Provider [phone] Encounter Details Date Type Department Care Team ([facility] st Contact Info) Description 08/01/2022 Ancillary Orders [facility]opedics & Sports Medicine [address] [place] [address] Mandy Navas MD [address] [place] [address] Orthopedics & Sports Medicine, [place] [address] [email or web address] Social History Tobacco Use Types Packs/Day Years [...] Description 03/30/2025 8:40 AM EST Office Visit [facility] [place] [facility] 15 [facility] 201 [place] [address] Klaudia Fan MD 15 [facility] [address] [place] [address] [email or web address] documented as of this encounter Visit Diagnoses Not on filedocumented in this encounter Additional Health Concerns Infection Onset Date Last Indicated Resolved Time COVID-19 11/19/2023 11/19/2023 12/10/2023 1:21 AM EDT documented as of this encounter Care Teams Mixing Machine Tender Relationship Specialty Start Date End Date Klaudia Fan MD 15 [facility] [address] [place] [address] [email or web address] PCP - General Family Medicine 09/21/19 documented as of this encounter Additional Source Comments The information contained in this document represents components of the legal health record. It is not the complete legal health record.[facility]
--- OUTSIDE RECORDS SUMMARY | 2025-02-03 13:17 | XMS_ITS | Encounter Summary ---
Author Organization [facility] Address [address] [place] [address] [place] [address] Phone Care Team Providers Care Manager Motor Name Role Phone Klaudia Fan MD Primary Care Provider [phone] Reason for Visit * Reason Comments Med Change Request Encounter Details Date Type Department Care Team ([facility] Contact Info) Description 03/07/2023 Refill [facility] Orthopedics & Sports Medicine [address] [place] [address] Slick Mae PA-C [address] [place] [address] Orthopedics & Sports Medicine, [place] [address] [email or web address] Med Change Request Social History Tobacco Use [...] Description 03/30/2025 8:40 AM EST Office Visit [facility] Primary Care [address] [facility] [address] [place] [address] Klaudia Fan MD 15 [facility] [address] [place] [address] [email or web address] documented as of this encounter Visit Diagnoses Not on filedocumented in this encounter Additional Health Concerns Infection Onset Date Last Indicated Resolved Time COVID-19 11/19/2023 11/19/2023 12/10/2023 1:21 AM EDT documented as of this encounter Care Teams Manager Motor Relationship Specialty Start Date End Date Klaudia Fan MD 15 [facility] [address] [place] [address] [email or web address] PCP - General Family Medicine 09/21/19 documented as of this encounter Additional Source Comments The information contained in this document represents components of the legal health record. It is not the complete legal health record.[facility]
--- OUTSIDE RECORDS SUMMARY | 2025-02-03 13:17 | XMS_ITS | Encounter Summary ---
Author Organization [employer] [facility] Address [address] [place] [address] Phone Care Team Providers Care Lead Pressman [employer] Name Role Phone Klaudia Fan MD Primary Care Provider [phone] Encounter Details Date Type Department Care Team (Late st Contact Info) Description 03/09/2024 Procedure Pass [facility] [address] [place] [address] Social History Tobacco Use Types Packs/Day Years [...] high school, GED, job training, learning the Palestinian language, technical skills, or developing parenting skills)? [...] 8:40 AM EST Office Visit [facility] [address] [facility] [address] [place] [address] Klaudia Fan MD [address] [address] [email or web address] documented as of this encounter Visit Diagnoses Not on filedocumented in this encounter Additional Health Concerns Assessment Noted Time PHQ-2 Depression Total Score: 1 03/09/20 24 7:16 AM EST documented as of this encounter Care Teams Lead Pressman [employer] Relationship Specialty Start Date End Date Klaudia Fan MD [address] [address] [email or web address] PCP - General Family Medicine 09/21/19 documented as of this encounter Additional Source Comments The information contained in this document represents components of the legal health record. It is not the complete legal health record.[facility]
--- OUTSIDE RECORDS SUMMARY | 2025-02-03 13:17 | XMS_ITS | Encounter Summary ---
Author Organization [facility] Address [address] [place] [address] [place] [address] Phone Care Team Providers Care Farm Supervisor Name Role Phone Klaudia Fan MD Primary Care Provider [phone] Reason for Referral * Outpatient Procedure - Closed Specialty Diagnoses / Procedures Referred By Sid gallardo Referred To Contact Radiology Diagnoses Other microscopic hematuria Personal history of urinary calculi Procedures US Kidneys and Bladder Marleni Spence MD Phone: tel: fax: [email or web address] Referral ID Status Reason Start Date Expiration Date Visits Re quested Visits Authorized [id number] Closed 12/20/2020 12/20/2021 1 1 Encounter Details Date Type Department Care Team (Latest Contact Info) Description 12/20/2020 Transcribe Orders Virtual Department 30 [place] [address] Marleni Spence MD [address] [place] [address] [email or web address] Other microscopic hematuria (Primary Dx); Personal history [...] Description 03/30/2025 8:40 AM EST Office Visit [facility] [place] [facility] [address] [place] [address] Klaudia Fan MD 15 [facility] [address] [place] [address] [email or web address] documented as of this encounter Results * [...] documented as of this encounter Care Teams Farm Supervisor Relationship Specialty Start Date End Date Klaudia Fan MD [address] [place] [address] [email or web address] PCP - General Family Medicine 09/21/19 documented as of this encounter Additional Source Comments The information contained in this document represents components of the legal health record. It is not the complete legal health record.[facility]
--- OUTSIDE RECORDS SUMMARY | 2025-02-03 13:17 | XMS_ITS | Encounter Summary ---
Author Organization [facility] Address [address] [facility] [address] [place] [address] Phone Care Team Providers Care Landscape Architecture Teacher Name Role Phone Jackie Swanson MD Primary Care Provider + [phone] Klaudia Fan MD Primary Care Provider + [phone] Encounter Details Date Type Department Care Team (Late st Contact Info) Description 03/28/2018 Procedure Pass [facility] Endoscopy Admitting Dept Virtual Department 30 [place] [address] Social History Tobacco Use Types Packs/Day Years [...] Description 03/30/2025 8:40 AM EST [facility] [place] [facility] [address] [facility] [address] [place] [address] Klaudia Fan MD 15 [facility] [address] [place] [address] documented as of this encounter Visit Diagnoses Not on filedocumented in this encounter Additional Health Concerns Infection Onset Date Last Indicated Resolved Time CoV-Risk 11/19/2019 11/19/2019 11/19/2019 4:18 PM EDT CoV-Risk 04/29/2020 04/29/2020 05/09/2020 1:23 AM EST CoV-Exposed Comment:From COVIDPass 08/21/2021 08/21/2021 09/01/2021 1:24 A M EDT COVID-19 11/19/2023 11/19/2023 12/10/2023 1:21 AM EDT documented as of this encounter Care Teams Landscape Architecture Teacher Relationship Specialty Start Date End Date Jackie Swanson MD [address] [place] [address] PCP - General Internal Medicine 05/31/17 09/20/19 Klaudia Fan MD [address] [place] [address] PCP - General Family Medicine 09/21/19 documented as of this encounter Additional Source Comments The information contained in this document represents components of the legal health record. It is not the complete legal health record.[facility]
--- OUTSIDE RECORDS SUMMARY | 2025-02-03 13:17 | XMS_ITS | Encounter Summary ---
Author Organization [facility] Address [address] [place] [address] Phone Care Team Providers Care General Operator Name Role Phone Klaudia Fan MD Primary Care Provider [phone] Encounter Details Date Type Department Care Team (Late st Contact Info) Description 02/15/2020 Ancillary Orders [facility] [place] [facility] [address] [place] [address] Klaudia Fan MD [address] [place] [address] 201 [place] [address] [email or web address] Breast screening Social History Tobacco Use Types [...] Description 03/30/2025 8:40 AM EST Office Visit [facility] [place] Primary Care [address] [place] [address] Klaudia Fan MD [address] [place] [address] [email or web address] documented as of this encounter Results * [...] documented as of this encounter Care Teams General Operator Relationship Specialty Start Date End Date Klaudia Fan MD [address] [address] [email or web address] PCP - General Family Medicine 09/21/19 documented as of this encounter Additional Source Comments The information contained in this document represents components of the legal health record. It is not the complete legal health record.[facility]
--- OUTSIDE RECORDS SUMMARY | 2025-02-03 13:17 | XMS_ITS | Encounter Summary ---
Author Organization [facility] Address [address] [facility] [address] [place] [address] Phone Care Team Providers Care Pizza Hut Assistant Name Role Phone Klaudia Fan MD Primary Care Provider [phone] Encounter Details Date Type Department Care Team (Late st Contact Info) Description 03/17/2020 Telemedicine [facility] [address] [place] [address] Quentin Reddy AR [address] [place] [address] [email or web address] Social History Tobacco Use Types Packs/Day Years [...] EST Office Visit [facility] [address] [facility] [address] [place], [place] [phone] Klaudia Fan MD 15 [facility] [address] [place], [place] [phone] [email or web address] documented as of this encounter Visit Diagnoses Not on filedocumented in this encounter Additional Health Concerns Infection Onset Date Last Indicated Resolved Time CoV-Risk 04/29/2020 04/29/2020 05/09/2020 1:23 AM EST CoV-Exposed Comment:From COVIDPass 08/21/2021 08/21/2021 09/01/2021 1:24 A M EDT COVID-19 11/19/2023 11/19/2023 12/10/2023 1:21 AM EDT documented as of this encounter Care Teams Pizza Hut Assistant Relationship Specialty Start Date End Date Klaudia Fan MD [address] [place] [address] [email or web address] PCP - General Family Medicine 09/21/19 documented as of this encounter Additional Source Comments The information contained in this document represents components of the legal health record. It is not the complete legal health record.[facility]
--- OUTSIDE RECORDS SUMMARY | 2025-02-03 13:17 | XMS_ITS | Clinical Summary ---
Author Organization [facility] Address [address] [place] [address] Phone Care Team Providers Care Funeral Pre Arrangement Specialist Name Role Phone Klaudia Fan MD Primary Care Provider Allergies Active Allergy Reactions Criticality Noted Date Comments Hydrocodone Swelling 03/19/2023 Throat & mouth swelling Hydrocodone-Acetaminophen Swelling 07/12/2024 [place] 07/12/2024 [place] 07/12/2024 [place] GI Upset Medium 03/20/2018 Vomiting.allergy to pat [...] screens: Positive and considering reaching out to [facility] IPV screen in women of reproductive age [...] can consider for 40-49: up to date, BENEFITS COORDINATOR Orders these Glucose/diabetes screening for people 40 - 70 with BMI >25: N/A Aspirin for primary prevention for adults 50-59 with risk >10%, and can consider for 60-69: Depends on lipids Colonoscopy for adults 50-75, and can consider at older ages: Not due until 03/2023 Hepatitis C screening for adults born between 3694-1334: Ordered History of GI bleed 09/21/2019 Assessment [...] coronary syndromes including unstable or severe angina, PA within 1 month, severe CHF, high grade [...] PT, 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 F/u after PT is completed for re-eval. Encounters Date Type Department Care Team Description 01/28/2025 2:00 PM EST Office Visit [facility] [address] [place] [address] Maxwell Arechiga MD Right arm pain (Primary Dx); Constipation, unspecified constipation type 01/18/2025 Telephone [facility] [address] [place] [address] Klaudia Fan MD Triage (Green - Shoulder Pain + Wrist Pain) 01/17/2025 9:30 AM EST Office Visit [facility] at [address] [place] [address] Dillan Sutton PA-C Acute pharyngitis, unspecified etiology (Primary Dx) 01/05/2025 Orders Only [facility] [address] [place] [address] Klaudia Fan MD Routine medical exam 01/04/2025 Telephone [facility] [address] [place] [address] Elizabeth Petty Imaging order from Last 3 [...] high school, GED, job training, learning the Malay language, technical skills, or developing parenting skills)? [...] Description 03/30/2025 8:40 AM EST Office Visit [facility] [address] [facility] [address] [place] [address] Klaudia Fan MD [address] [facility] [address] [place] [address] [email or web address] Due Date Last Done Comments [...] this topic Medical Devices Implanted Type Area Human Resource Manager Device Identifier Shelf Expiration Date Model / Serial / Lot Hip 36mm 0 G7 Glidden Type 1 Standard - [id number] Implanted:Qty: 1 on 02/06/2023 by Jeanine Quresih MD at [facility] STANDARD Left: Hip [employer] 06/23/2032 [id number] / / [id number] Screw Dome 6.5x35mm G7 Aceetabular Low Profile Hip - [id number] Implanted:Qty: 1 on 02/06/2023 by Jeanine Qureshi MD at [facility] Left: Hip [employer] [id number] 08/13/2032 [id number] / / [id number] Acetabular Shell 52mm Size E G7 Porous Plasma [employer] Hole - [id number] Implanted:Qty: 1 on 02/06/2023 by Jeanine Qureshi MD at [facility] Left: Hip [employer] [id number] 03/28/2032 [id number] / / [id number] Hip Stem [id number] 135deg Echo Bimetric Revision Titanium Porous Reduced Proximalimal Profile Neck - [id number] Implanted:Qty: 1 on 02/06/2023 by Jeanine Qureshi MD at [facility] Left: Hip [employer] [id number] 11/10/2030 [id number] / / [id number] Hip Liner 36mm E Acetabular Neutral G7 Longevity - [id number] Implanted:Qty: 1 on 02/06/2023 by Jeanine Qureshi MD at [facility] Left: Hip JAYA [employer] 02/06/2027 [id number] / / [id number] Procedures Procedure Name Priority Date/Time Associated Diagnosis [...] Not Detected 01/18/20 25 10:01 AM EST [facility] Swab (Throat) 01/17/2025 9:3 6 AM EST 01/17/2025 10:01 AM EST us Dillan patricia PA-C LAB POCT DOCKED DEVICE UNSOLICTED RESULTS Final Result [facility] [place] [address], [facility] [phone] * DXA Screening (01/05/2025 4:04 PM EDT) [...] (03/27/2024 3:10 PM EST) HDL 82 mg/dL [facility] Comment: Interpretation <40 mg/dL: Low HDL cholesterol (major risk factor for CHD) Greater than or equal to 60 mg/dL: High HDL cholesterol ( negative risk factor for CHD) HDL - cholesterol is affected by a number of factors, e.g. smoking, excerise, hormones, sex and age. CHOLESTEROL 157 0 - 240 mg/dL [facility] TRIGLYCERIDES 84 30 - 160 mg/dL [facility] LDL 58 50 - 129 mg/dL [facility] Comment: LDL levels in terms of risk for coronary heart disease: <100 mg/dL: Optimal 100-129 mg/dL: Near or above optimal 130-159 mg/dL: Borderline high 160-189 mg/dL: High >190 mg/dL: Very High CARDIAC RISK RATIO 1.9(L) 3.3 - 4.4 C [facility] Blood 03/27/2024 3:10 PM EST 03/27/2024 3:13 PM EST us Klaudia Fan MD LAB BLOOD BKR ORDERABLES Fin al Result [address] [address] * ENDOSCOPY, COLON (07/26/2023 9:48 AM EDT) Narrative Transcriptions Jeanine Barber MD - 07/26/2023 9:48 AM EDT [facility] Patient Name: Gilmer Catherine MD:: JEANINE BARBER MD, Procedure Date: 07/26/2023 9:48 AM Date of : 1960 Age: 62 Admit Type: Outpatient Gender: Female Room: [facility] Referring MD: Klaudia Fan Exam Type: Colonoscopy [...] 9:48 AM Procedure Code(s): --- Professional --- 19819, Colonoscopy, flexible; diagnostic, including collection of specimen(s) by brushing or washing, when performed (separateprocedure) --- Technical --- 29120, Colonoscopy, flexible; diagnostic, including collection of specimen(s) [...] congenital malformations of intestine CPT copyright 2021 [employer]. All rights reserved. The codes documented in this report are preliminary and upon machine guide base winder reviewmay be revised to meet current compliance requirements. Procedure Date: 07/26/2023 9:48:[address] [place] [id number] Klaudia Fan MD GI PROCEDURE ORDERABLES Kati catherine Result * Pap Test (01/18/2023 12:00 AM EST) 01/18/2023 01/21/2023 9:0 3 AM EST Narrative SEE NARRATIVE - 01/24/2023 9:12 AM EST [address] [address] Software Tools Engineer: Kelly Alonso MD BENEFITS COORDINATOR Cytology Report FINAL DIAGNOSIS A. PAP SMEAR [...] 59, 66, 68) Note: Testing performed by [employer] HR-HPV analysis. Clinical correlation is advised. This HPV test was performed at [facility], [address] [place] [address]. This test has been FDA approved for [employer] cervical cytology specimens. The accuracy and precision of this test for all other specimen sources has been verified in the Cytopathology Laboratory of the [facility] and has not been cleared or approved by the U.S. Food and Drug Administration. Clinical correlation is advised. CLINICAL HISTORY Date of Last Menstrual Period: Not Provided Menstrual History: Post Menopausal Other Clinical Conditions: Screening Pap SPECIMEN SOURCE A: PAP SMEAR (SUREPATH) CE Patient Name: GILMER MADRIGAL : 1960 (Age: 62) Sex: F Institution: [facility] Location: [facility] Date of Collection: 01/18/2023 Date of Reported: 01/24/2023 09:12 Results to: Isabel Lozada MD us Isabel Lozada MD CYTOLOGY ORDERABLES Final Res ult SEE NARRATIVE * Hepatitis C antibody, qualitative (11/17/2019 5:12 PM EDT) HCV NON-REACTIV E NON-REACTI VE [facility] Blood 11/17/2019 5:12 PM EDT 11/17/2019 5:19 PM EDT us Klaudia Fan MD LAB BLOOD BKR ORDERABLES Fin al Result [facility] [address] [place] [address] from Last 3 Months or Most Recently Relevant to Health Maintenance Insurance [facility] EMPLOYEES [facility] [employer] BENEFITS ADMINISTRATORS [facility] EMPLOYEES FAMILY [facility] BENEFITS ADMINISTRAT[place] [address] [place] [address] [place] [address] [place] [address] EMPLOYEES FAMILY [facility] ADMINISTRAT[place] [place] [address] EMPLOYEES FAMILY [employer] BENEFITS ADMINISTRATORS [employer] ADMINISTRATORS [facility] EMPLOYEES FAMILY [facility] BENEFITS ADMINISTRATORS Advance Directives For more information, please contact: [phone] (9AM - 5PM [facility], Saturday-Saturday) * Full Code (Latest Code Status on File) Date Activated Date Inactivated Comments 02/06/2023 6:27 AM Question Answer Comments Code Status Confirmed With: Patient Care Teams Funeral Pre Arrangement Specialist Relationship Specialty Start Date End Date Klaudia Fan MD [address] [place] [address] PCP - General Family Medicine 09/21/19 Additional Source Comments The information contained in this document represents components of the legal health record. It is not the complete legal health record.[facility]
--- OUTSIDE RECORDS SUMMARY | 2025-02-03 13:18 | XMS_ITS | Encounter Summary ---
Author Organization [facility] Address [address] [facility] [address] [place] [address] Phone Care Team Providers Care Wedding Decorator Name Role Phone Jackie Swanson MD Primary Care Provider + [phone] Klaudia Fan MD Primary Care Provider + [phone] Encounter Details Date Type Department Care Team (Late st Contact Info) Description 12/12/2018 Ancillary Orders Virtual Department [address] [place] [address] Isabel Loazda MD [address] [facility] [place] [address] [email or web address] Breast screening Social History Tobacco Use Types [...] 03/30/2025 8:40 AM EST Office Visit [facility] [address] [facility] [address] [place], [place] [phone] Klaudia Fan MD [address] [facility] [place] [address] [email or web address] documented as of this encounter Results * [...] and compared with multiple prior studies, most [id number]/16/2018, with utilization of computer-aided detection. The breasts [...] documented as of this encounter Care Teams Wedding Decorator Relationship Specialty Start Date End Date Jackie Swanson MD [address] [place] [address] PCP - General Internal Medicine 05/31/17 09/20/19 Klaudia Fan MD [address] [place] [address] PCP - General Family Medicine 09/21/19 documented as of this encounter Additional Source Comments The information contained in this document represents components of the legal health record. It is not the complete legal health record.[facility]
--- OUTSIDE RECORDS SUMMARY | 2025-02-03 13:18 | XMS_ITS | Encounter Summary ---
Author Organization [facility] Address [address] [place] [address] Phone Care Team Providers Care Physical Therapist Center Manager Name Role Phone Klaudia Fan MD Primary Care Provider [phone] Encounter Details Date Type Department Care Team (Late st Contact Info) Description 04/27/2021 Procedure Pass [facility] - [address] [place] [address] Social History Tobacco Use Types Packs/Day Years [...] Description 03/30/2025 8:40 AM EST Office Visit [facility] [address] [facility] [address] [place] [address] Klaudia Fan MD [address] [facility] [address] [place] [address] [email or web address] documented as of this encounter Visit Diagnoses Not on filedocumented in this encounter Additional Health Concerns Infection Onset Date Last Indicated Resolved Time CoV-Exposed Comment:From COVIDPass 08/21/2021 08/21/2021 09/01/2021 1:24 A M EDT COVID-19 11/19/2023 11/19/2023 12/10/2023 1:21 AM EDT documented as of this encounter Care Teams Physical Therapist Center Manager Relationship Specialty Start Date End Date Klaudia Fan MD [address] [place] [address] [email or web address] PCP - General Family Medicine 09/21/19 documented as of this encounter Additional Source Comments The information contained in this document represents components of the legal health record. It is not the complete legal health record.[facility]
--- OUTSIDE RECORDS SUMMARY | 2025-02-03 13:18 | XMS_ITS | Encounter Summary ---
Author Organization [facility] Address [address] [place] [address] [place] [address] Phone Care Team Providers Care Animal Trainer Name Role Phone Jackie Swanson MD Primary Care Provider + [phone] Klaudia Fan MD Primary Care Provider + [phone] Reason for Referral * Physical Therapy (Elective) - Closed Specialty Diagnoses / Procedures Referred By Sid gallardo Referred To Contact Physical Therapy Diagnoses Encounter for rehabilitation Low Back Pain Procedures Evaluate & Treat Jackie Swanson MD Phone: tel: [email or web address] [facility] [address] [place] [address] Phone: tel: Referral ID Status Reason Start Date Expiration Date Visits Re quested Visits Authorized [id number] Closed 03/09/2019 03/10/2020 50 50 Encounter Details Date Type Department Care Team (Latest Contact Info) Description 03/02/2019 Transcribe Orders [facility] [address] [place] [address] Jackie Swanson MD [address] [place] [address] [email or web address] Encounter for rehabilitation (Primary Dx) Social History [...] [facility] [address] [facility] [address] [place] [address] Klaudia Fan MD [address] [facility] [address] [place] [address] [email or web address] documented as of this encounter Procedures Procedure Name Priority Date/Time Associated Diagnosis Comments AMB REFERRAL TO [facility] PHYSICAL [facility]ERAPY Routine 03/09/2019 11:14 AM EST Encounter for rehabilitation documented in this encounter Results * Ambulatory referral to [facility] Physical Therapy (03/09/2019 11:14 AM EST) us Jackie Swanson MD AMB [facility] REFERRALS Final Resu lt documented in [...] documented as of this encounter Care Teams Animal Trainer Relationship Specialty Start Date End Date Jackie Sawnson MD [address] [place] [address] [address] [place] [address] [email or web address] PCP - General Internal Medicine 05/31/17 09/20/19 Klaudia Fan MD [address] [address] [email or web address] PCP - General Family Medicine 09/21/19 documented as of this encounter Additional Source Comments The information contained in this document represents components of the legal health record. It is not the complete legal health record.[facility]
--- OUTSIDE RECORDS SUMMARY | 2025-02-03 13:18 | XMS_ITS | Encounter Summary ---
Author Organization [facility] Address [address] [place] [address] [place] [address] Phone Care Team Providers Care Er Registrar Name Role Phone Klaudia Fan MD Primary Care Provider [phone] Encounter Details Date Type Department Care Team ([facility] st Contact Info) Description 02/06/2023 Procedure Pass [place] Admitting Dept - Virtual Department [address] [place] [address] Social History Tobacco Use Types Packs/Day Years [...] 8:40 AM EST Office Visit [facility] [address] [facility] [address] [place] [address] Klaudia Fan MD [address] [facility] [address] [place] [address] [email or web address] documented as of this encounter Visit Diagnoses Not on filedocumented in this encounter Additional Health Concerns Infection Onset Date Last Indicated Resolved Time COVID-19 11/19/2023 11/19/2023 12/10/2023 1:21 AM EDT documented as of this encounter Care Teams Er Registrar Relationship Specialty Start Date End Date Klaudia Fan MD [address] [facility] [address] [place] [address] [email or web address] PCP - General Family Medicine 09/21/19 documented as of this encounter Additional Source Comments The information contained in this document represents components of the legal health record. It is not the complete legal health record.[facility]
--- OUTSIDE RECORDS SUMMARY | 2025-02-03 13:18 | XMS_ITS | Encounter Summary ---
Author Organization [facility] Address [address] [place] [address] [address] [place] [address] Phone Care Team Providers Care Director Of Global Sales Name Role Phone Jackie Swanson MD Primary Care Provider + [phone] Klaudia Fan MD Primary Care Provider + [phone] Encounter Details Date Type Department Care Team (Late st Contact Info) Description 10/23/2018 Ancillary Orders Virtual Department [address] [place] [address] Jackie Swanson MD [address] [place] [address] [email or web address] Chronic low back pain without sciatica, unspecified [...] 03/30/2025 8:40 AM EST Office Visit [facility] [address] [facility] [address] [place] [address] Klaudia Fan MD 15 [facility] [address] [place] [address] [email or web address] documented as of this encounter Results * [...] as of this encounter Care Teams Director Of Global Sales Relationship Specialty Start Date End Date Jackie Swanson MD [address] [place] [address] PCP - General Internal Medicine 05/31/17 09/20/19 Klaudia Fan MD [address] [place] [id number] PCP - General Family Medicine 09/21/19 documented as of this encounter Additional Source Comments The information contained in this document represents components of the legal health record. It is not the complete legal health record.[facility]
--- OUTSIDE RECORDS SUMMARY | 2025-02-03 13:18 | XMS_ITS | Encounter Summary ---
Author Organization [facility] Address [address] [facility] [address] [place] [address] Phone Care Team Providers Care Senior Engineering Technician Name Role Phone Jackie Swanson MD Primary Care Provider + [phone] Klaudia Fan MD Primary Care Provider + [phone] Encounter Details Date Type Department Care Team (Late st Contact Info) Description 12/12/2018 Ancillary Orders [facility] [address] [place], [place] [phone] Isabel Lozada MD [address] [facility], [address] [place], [place] [phone] [email or web address] Social History Tobacco Use Types [...] EST Office Visit [facility] [place] [facility] [address] [facility] [address] [place] [address] Klaudia Fan MD [address] [address] [email or web address] documented as of this encounter Visit Diagnoses Not on filedocumented in this encounter Additional Health Concerns Infection Onset Date Last Indicated Resolved Time CoV-Risk 11/19/2019 11/19/2019 11/19/2019 4:18 PM EDT CoV-Risk 04/29/2020 04/29/2020 05/09/2020 1:23 AM EST CoV-Exposed Comment:From COVIDPass 08/21/2021 08/21/2021 09/01/2021 1:24 A M EDT COVID-19 11/19/2023 11/19/2023 12/10/2023 1:21 AM EDT documented as of this encounter Care Teams Senior Engineering Technician Relationship Specialty Start Date End Date Jackie Swanson MD [address] [place] [address] PCP - General Internal Medicine 05/31/17 09/20/19 Klaudia aFn MD [address] [place] [address] PCP - General Family Medicine 09/21/19 documented as of this encounter Additional Source Comments The information contained in this document represents components of the legal health record. It is not the complete legal health record.[facility]
== END 2025-02-03 10:49 | disposition home or self-care (01) ==
LOC: HO.XRAY 10:48
PROVIDERS: PCP Family Medicine; Visit Provider Family Medicine
DX: M79.601 Pain in right arm (principal)
CPT/HCPCS: 72040

== ENCOUNTER → 2025-02-03 11:10 | Outpatient (BNV) | payer OTHER, SELFPAY | PROVIDERS: PCP Family Medicine; Visit Provider Radiology Diagnostic Ultrasound | DX: M47.812 Spondylosis without myelopathy or radiculopathy, cervical region (principal) | CPT/HCPCS: 72040 ==